=== PATIENT | male | born 1965 | race Caucasian/White ===

== ENCOUNTER → 2017-12-10 | Outpatient (CLI) | payer OTHER ==
[~2017-12-10] MED LIST: CEFUROXIME500 MG PO; IBUPROFEN 800800 MG PO; LORTAB 5-500 T1 EAC1 PO; MINOCIN100 MG PO; NORCO 10-325 T1 EACH PO; PERCOCET 10-321 EACH PO; ULTRAM 50MG TAB50 MG PO; VALIUM5 MG PO; VITAMIN D3400 UNIT PO; XARELTO15 MG PO; XARELTO20 MG PO
[2017-12-10 02:55] LABS: HEMATOCRIT 48.7 % (42.0-52.0); HEMOGLOBIN 16.2 gm/dL (14.0-18.0); MCH 31.9 pg (26.0-34.0); MCHC 33.3 g/dL (28.0-37.0); MPV 7.4 fl. (7.2-11.1); RBC 5.07 mil/uL (4.50-6.00); RDW-CV 13.4 % (10.5-14.5); WBC 9.4 thou/uL (4.0-11.0)
[2017-12-10 03:32] LABS: ALBUMIN 3.4 g/dL (3.4-5.0); ALKALINE PHOSPHATASE 149 U/L (46-116); ANION GAP 9 mmol/L (7-16); BUN 10 mg/dL (7-18); CALCIUM 8.6 mg/dL (8.5-10.1); CHLORIDE 103 mmol/L (98-107); CHOLESTEROL 179 mg/dL (<200); CO2 29 mmol/L (21-32); CREATININE 1.1 mg/dL (0.6-1.3); GLUCOSE 118 mg/dL (70-99); HDL CHOLESTEROL 38 mg/dL (>40); LDL CHOLESTEROL 111 mg/dL (<100); POTASSIUM 3.6 mmol/L (3.5-5.1); SGOT 33 U/L (15-37); SGPT 53 U/L (30-65); SODIUM 141 mmol/L (136-145); TC:HDL 4.7 Ratio (Not establshd); TOTAL PROTEIN 8.7 g/dL (6.4-8.2); TRIGLYCERIDE 154 mg/dL (<150); VLDL 31 mg/dL (<40)
[2017-12-10 03:35] LABS: SERUM ASSESSMENT Clear
== END ==
LOC: M.LAB 01:49
PROVIDERS: Internal Medicine
DX: I83.009 Varicose veins of unspecified lower extremity with ulcer of unspecified site (principal); R21 Rash and other nonspecific skin eruption

== ENCOUNTER → 2017-12-21 | Outpatient (CLI) | payer OTHER | LOC: M.RAD 04:54 | DX: R05 Cough (principal); R07.9 Chest pain, unspecified ==

== ENCOUNTER → 2018-02-01 | Outpatient (CLI) | payer OTHER | LOC: M.WC 00:02 | DX: I83.023 Varicose veins of left lower extremity with ulcer of ankle (principal); L97.321 Non-pressure chronic ulcer of left ankle limited to breakdown of skin; I89.0 Lymphedema, not elsewhere classified; E66.01 Morbid (severe) obesity due to excess calories; Z68.44 Body mass index [BMI] 60.0-69.9, adult; Z86.718 Personal history of other venous thrombosis and embolism ==

== ENCOUNTER → 2018-02-04 | Outpatient (CLI) | payer OTHER | LOC: M.WC 01:29 | DX: I83.023 Varicose veins of left lower extremity with ulcer of ankle (principal); L97.321 Non-pressure chronic ulcer of left ankle limited to breakdown of skin; I89.0 Lymphedema, not elsewhere classified; E66.01 Morbid (severe) obesity due to excess calories; Z68.44 Body mass index [BMI] 60.0-69.9, adult; Z86.718 Personal history of other venous thrombosis and embolism ==

== ENCOUNTER → 2018-02-09 | Outpatient (CLI) | payer OTHER | LOC: M.WC 02:09 | DX: I87.312 Chronic venous hypertension (idiopathic) with ulcer of left lower extremity (principal); L97.821 Non-pressure chronic ulcer of other part of left lower leg limited to breakdown of skin; L97.321 Non-pressure chronic ulcer of left ankle limited to breakdown of skin; I89.0 Lymphedema, not elsewhere classified; E66.01 Morbid (severe) obesity due to excess calories; Z86.718 Personal history of other venous thrombosis and embolism; Z68.44 Body mass index [BMI] 60.0-69.9, adult ==

== ENCOUNTER → 2018-02-11 | Outpatient (CLI) | payer OTHER | LOC: M.WC 05:00 | DX: I83.023 Varicose veins of left lower extremity with ulcer of ankle (principal); I89.0 Lymphedema, not elsewhere classified; L97.821 Non-pressure chronic ulcer of other part of left lower leg limited to breakdown of skin; E66.01 Morbid (severe) obesity due to excess calories; I87.2 Venous insufficiency (chronic) (peripheral); Z86.718 Personal history of other venous thrombosis and embolism; Z68.44 Body mass index [BMI] 60.0-69.9, adult ==

== ENCOUNTER → 2018-02-15 | Outpatient (CLI) | payer OTHER | LOC: M.WC 01:37 | DX: I87.312 Chronic venous hypertension (idiopathic) with ulcer of left lower extremity (principal); L97.821 Non-pressure chronic ulcer of other part of left lower leg limited to breakdown of skin; I89.0 Lymphedema, not elsewhere classified; E66.01 Morbid (severe) obesity due to excess calories; Z86.718 Personal history of other venous thrombosis and embolism; Z68.44 Body mass index [BMI] 60.0-69.9, adult ==

== ENCOUNTER → 2018-02-18 | Outpatient (CLI) | payer OTHER | LOC: M.WC 04:38 | DX: I87.312 Chronic venous hypertension (idiopathic) with ulcer of left lower extremity (principal); L97.821 Non-pressure chronic ulcer of other part of left lower leg limited to breakdown of skin; I83.023 Varicose veins of left lower extremity with ulcer of ankle; E66.01 Morbid (severe) obesity due to excess calories; Z68.44 Body mass index [BMI] 60.0-69.9, adult; Z86.718 Personal history of other venous thrombosis and embolism ==

== ENCOUNTER → 2018-02-25 | Outpatient (CLI) | payer OTHER | LOC: M.WC 00:54 | DX: I83.023 Varicose veins of left lower extremity with ulcer of ankle (principal); L97.321 Non-pressure chronic ulcer of left ankle limited to breakdown of skin; L97.821 Non-pressure chronic ulcer of other part of left lower leg limited to breakdown of skin; I89.0 Lymphedema, not elsewhere classified; E66.01 Morbid (severe) obesity due to excess calories; Z86.718 Personal history of other venous thrombosis and embolism; Z68.44 Body mass index [BMI] 60.0-69.9, adult ==

== ENCOUNTER → 2018-03-04 | Outpatient (CLI) | payer OTHER | LOC: M.WC 02:23 | DX: I87.312 Chronic venous hypertension (idiopathic) with ulcer of left lower extremity (principal); L97.822 Non-pressure chronic ulcer of other part of left lower leg with fat layer exposed; I89.0 Lymphedema, not elsewhere classified; E66.01 Morbid (severe) obesity due to excess calories; Z68.44 Body mass index [BMI] 60.0-69.9, adult; Z86.718 Personal history of other venous thrombosis and embolism ==

== ENCOUNTER → 2018-03-12 | Outpatient (CLI) | payer OTHER | LOC: M.WC 02:14 | DX: I87.312 Chronic venous hypertension (idiopathic) with ulcer of left lower extremity (principal); L97.822 Non-pressure chronic ulcer of other part of left lower leg with fat layer exposed; I89.0 Lymphedema, not elsewhere classified; E66.01 Morbid (severe) obesity due to excess calories; Z68.44 Body mass index [BMI] 60.0-69.9, adult; Z86.718 Personal history of other venous thrombosis and embolism ==

== ENCOUNTER → 2018-03-15 | Outpatient (CLI) | payer OTHER | LOC: M.WC 01:07 | DX: I83.023 Varicose veins of left lower extremity with ulcer of ankle (principal); L97.321 Non-pressure chronic ulcer of left ankle limited to breakdown of skin; L97.821 Non-pressure chronic ulcer of other part of left lower leg limited to breakdown of skin; I89.0 Lymphedema, not elsewhere classified; E66.01 Morbid (severe) obesity due to excess calories; Z86.718 Personal history of other venous thrombosis and embolism; Z68.44 Body mass index [BMI] 60.0-69.9, adult ==

== ENCOUNTER → 2018-03-18 | Outpatient (CLI) | payer OTHER | LOC: M.WC 03:53 | DX: I83.023 Varicose veins of left lower extremity with ulcer of ankle (principal); L97.321 Non-pressure chronic ulcer of left ankle limited to breakdown of skin; L97.821 Non-pressure chronic ulcer of other part of left lower leg limited to breakdown of skin; I89.0 Lymphedema, not elsewhere classified; E66.01 Morbid (severe) obesity due to excess calories; Z68.44 Body mass index [BMI] 60.0-69.9, adult; Z86.718 Personal history of other venous thrombosis and embolism ==

== ENCOUNTER → 2018-03-25 | Outpatient (CLI) | payer OTHER | LOC: M.WC 03:22 | DX: I83.023 Varicose veins of left lower extremity with ulcer of ankle (principal); L97.821 Non-pressure chronic ulcer of other part of left lower leg limited to breakdown of skin; E66.01 Morbid (severe) obesity due to excess calories; I89.0 Lymphedema, not elsewhere classified; Z68.44 Body mass index [BMI] 60.0-69.9, adult; Z86.718 Personal history of other venous thrombosis and embolism ==

== ENCOUNTER → 2018-04-02 | Outpatient (CLI) | payer OTHER | LOC: M.WC 01:36 | DX: L97.821 Non-pressure chronic ulcer of other part of left lower leg limited to breakdown of skin (principal); I83.023 Varicose veins of left lower extremity with ulcer of ankle; I89.0 Lymphedema, not elsewhere classified; E66.01 Morbid (severe) obesity due to excess calories; Z68.44 Body mass index [BMI] 60.0-69.9, adult; Z86.718 Personal history of other venous thrombosis and embolism ==

== ENCOUNTER → 2018-04-06 | Outpatient (CLI) | payer OTHER | LOC: M.WC 03:23 | DX: I83.023 Varicose veins of left lower extremity with ulcer of ankle (principal); L97.321 Non-pressure chronic ulcer of left ankle limited to breakdown of skin; L97.821 Non-pressure chronic ulcer of other part of left lower leg limited to breakdown of skin; I89.0 Lymphedema, not elsewhere classified; E66.01 Morbid (severe) obesity due to excess calories; Z68.44 Body mass index [BMI] 60.0-69.9, adult; Z86.718 Personal history of other venous thrombosis and embolism ==

== ENCOUNTER → 2018-04-09 | Outpatient (CLI) | payer OTHER | LOC: M.WC 04:37 | DX: L97.821 Non-pressure chronic ulcer of other part of left lower leg limited to breakdown of skin (principal); I87.2 Venous insufficiency (chronic) (peripheral); I89.0 Lymphedema, not elsewhere classified; E66.01 Morbid (severe) obesity due to excess calories; Z86.718 Personal history of other venous thrombosis and embolism; Z68.44 Body mass index [BMI] 60.0-69.9, adult ==

== ENCOUNTER → 2018-04-15 | Outpatient (CLI) | payer OTHER | LOC: M.WC 03:45 | DX: I83.023 Varicose veins of left lower extremity with ulcer of ankle (principal); L97.321 Non-pressure chronic ulcer of left ankle limited to breakdown of skin; I89.0 Lymphedema, not elsewhere classified; E66.01 Morbid (severe) obesity due to excess calories; Z68.44 Body mass index [BMI] 60.0-69.9, adult; Z86.718 Personal history of other venous thrombosis and embolism ==

== ENCOUNTER → 2018-04-23 | Outpatient (CLI) | payer OTHER | LOC: M.WC 01:50 | DX: I87.312 Chronic venous hypertension (idiopathic) with ulcer of left lower extremity (principal); L97.822 Non-pressure chronic ulcer of other part of left lower leg with fat layer exposed; I89.0 Lymphedema, not elsewhere classified; E66.01 Morbid (severe) obesity due to excess calories; Z68.44 Body mass index [BMI] 60.0-69.9, adult; Z86.718 Personal history of other venous thrombosis and embolism ==

== ENCOUNTER → 2018-04-30 | Outpatient (CLI) | payer OTHER | LOC: M.WC 01:45 | DX: I83.023 Varicose veins of left lower extremity with ulcer of ankle (principal); L97.321 Non-pressure chronic ulcer of left ankle limited to breakdown of skin; I89.0 Lymphedema, not elsewhere classified; E66.01 Morbid (severe) obesity due to excess calories; Z68.44 Body mass index [BMI] 60.0-69.9, adult; Z86.718 Personal history of other venous thrombosis and embolism ==

== ENCOUNTER → 2018-05-06 | Outpatient (CLI) | payer OTHER | LOC: M.WC 03:21 | DX: I83.028 Varicose veins of left lower extremity with ulcer other part of lower leg (principal); L97.821 Non-pressure chronic ulcer of other part of left lower leg limited to breakdown of skin; I89.0 Lymphedema, not elsewhere classified; E66.01 Morbid (severe) obesity due to excess calories; Z68.44 Body mass index [BMI] 60.0-69.9, adult; Z86.718 Personal history of other venous thrombosis and embolism ==

== ENCOUNTER 2018-06-02 08:46 | Emergency (ER) | payer OTHER ==
[~2018-06-02] VITALS: Ht 188 cm; Wt 226.8 kg
[~2018-06-02 08:46] MED LIST changes: -ULTRAM 50MG TAB50 MG PO; -VITAMIN D3400 UNIT PO
[2018-06-02] MEDS ORDERED: VITAMIN D3400 UNIT PO (08:57)
[2018-06-02 09:19] LABS: URINE BILIRUBIN NEGATIVE (Negative); URINE BLOOD 2+ (Negative); URINE CLARITY CLEAR; URINE COLOR DARK YELLOW; URINE GLUCOSE-RANDOM NEGATIVE (Negative); URINE KETONES NEGATIVE (Negative); URINE LEUKOCYTES-REFLEX NEGATIVE (Negative); URINE NITRITE-REFLEX NEGATIVE (Negative); URINE PROTEIN NEGATIVE (Negative); URINE SPECIFIC GRAVITY 1.025 (1.005-1.030); URINE UROBILINOGEN 0.2 E.U./dl (0.2-1.0)
[2018-06-02 09:28] LABS: SQUAMOUS 0-3 Few /LPF (0-3)
[2018-06-02 09:29] LABS: BACTERIA-REFLEX 1-9 Few /HPF (None Seen); CASTS None Seen /LPF (None Seen); URINE RBC 0-2 Rare /HPF (0-2); URINE WBC-REFLEX 0-5 Rare /HPF (0-5)
[2018-06-02 09:30] LABS: CRYSTALS None Seen /LPF (None Seen); MUCUS >6 Heavy strn/LPF (None Seen)
[2018-06-02 09:37] LABS: ABSOLUTE BASOPHILS 0.1 thou/uL (0.0-0.2); ABSOLUTE EOSINOPHILS 0.2 thou/uL (0.0-0.7); ABSOLUTE LYMPHOCYTES 1.6 thou/uL (0.8-5.3); ABSOLUTE MONOCYTES 0.6 thou/uL (0.0-1.2); ABSOLUTE NEUTROPHILS 6.3 thou/uL (1.6-8.1); BASOPHILS 0.8 %; EOSINOPHILS 2.2 %; HEMATOCRIT 45.5 % (42.0-52.0); HEMOGLOBIN 15.2 gm/dL (14.0-18.0); LYMPHOCYTES 18.5 %; MCH 32.3 pg (26.0-34.0); MCHC 33.4 g/dL (28.0-37.0); MCV 96.7 fL (80.0-100.0); MONOCYTES 7.3 %; MPV 7.7 fl. (7.2-11.1); NUCLEATED RBCS 0 /100WBC; PLATELET COUNT* 274 thou/uL (150-400); POLYS 71.2 %; RBC 4.71 mil/uL (4.50-6.00); RDW-CV 13.5 % (10.5-14.5); WBC 8.8 thou/uL (4.0-11.0)
[2018-06-02 09:49] LABS: CALCIUM 8.3 mg/dL (8.5-10.1); CREATININE 1.1 mg/dL (0.6-1.3); POTASSIUM 3.8 mmol/L (3.5-5.1)
[2018-06-02 09:54] LABS: ALBUMIN 3.2 g/dL (3.4-5.0); TOTAL BILIRUBIN 1.3 mg/dL (<0.1-1.0); TOTAL PROTEIN 7.8 g/dL (6.4-8.2)
[2018-06-02] MEDS ORDERED: VALIUM5 MG PO (12:40)
[2018-06-02] MEDS ORDERED: ULTRAM 50MG TAB50 MG PO (12:40)
[2018-06-02] MEDS ORDERED: PERCOCET 10-321 EACH PO (12:57)
[2018-06-02 13:04] VITALS: BP 150/82
== END 2018-06-02 13:05 | disposition home or self-care (01) ==
LOC: M.ERS 08:46
PROVIDERS: Personal Emergency Response Attendant
DX: M54.6 Pain in thoracic spine (principal); R31.9 Hematuria, unspecified; Z90.49 Acquired absence of other specified parts of digestive tract

== ENCOUNTER → 2018-12-18 | Outpatient (CLI) | payer OTHER ==
[~2018-12-18] MED LIST changes: +ULTRAM 50MG TAB50 MG PO; +VITAMIN D3400 UNIT PO
== END ==
LOC: M.RAD 02:06
DX: M25.561 Pain in right knee (principal); M25.562 Pain in left knee

== ENCOUNTER 2019-01-14 20:03 | Emergency (ER) | payer OTHER ==
[~2019-01-14] VITALS: Ht 188 cm; Wt 236.7 kg
[2019-01-14] MEDS ORDERED: OMEPRAZOLE20 M2 PO (20:14)
[2019-01-14] MEDS ORDERED: CELEBREX 200 M200 M1 PO (20:14)
[2019-01-14] MEDS ORDERED: GLUCOSAMINE HC500 MG PO (20:14)
[2019-01-14 21:02] VITALS: BP 159/82
== END 2019-01-14 21:02 | disposition short-term general hospital (02) ==
LOC: M.ERS 20:03
DX: R07.89 Other chest pain (principal); R51 Headache; M25.562 Pain in left knee; Z90.49 Acquired absence of other specified parts of digestive tract; W01.0XXA Fall on same level from slipping, tripping and stumbling without subsequent striking against object, initial encounter; Y93.89 Activity, other specified; Y92.89 Other specified places as the place of occurrence of the external cause; Y99.8 Other external cause status

== ENCOUNTER → 2019-02-10 | Outpatient (CLI) | payer OTHER ==
[~2019-02-10] MED LIST changes: +CELEBREX 200 M200 M1 PO; +GLUCOSAMINE HC500 MG PO; +OMEPRAZOLE20 M2 PO
== END ==
LOC: M.WC 08:00
DX: I87.312 Chronic venous hypertension (idiopathic) with ulcer of left lower extremity (principal); L97.822 Non-pressure chronic ulcer of other part of left lower leg with fat layer exposed; I89.0 Lymphedema, not elsewhere classified; E66.01 Morbid (severe) obesity due to excess calories; M45.9 Ankylosing spondylitis of unspecified sites in spine; Z90.49 Acquired absence of other specified parts of digestive tract; Z86.718 Personal history of other venous thrombosis and embolism; Z68.44 Body mass index [BMI] 60.0-69.9, adult

== ENCOUNTER → 2019-02-14 | Outpatient (CLI) | payer OTHER | LOC: M.WC 01:24 | DX: I87.312 Chronic venous hypertension (idiopathic) with ulcer of left lower extremity (principal); I89.0 Lymphedema, not elsewhere classified; E66.01 Morbid (severe) obesity due to excess calories; L97.821 Non-pressure chronic ulcer of other part of left lower leg limited to breakdown of skin; Z86.718 Personal history of other venous thrombosis and embolism; Z68.44 Body mass index [BMI] 60.0-69.9, adult ==

== ENCOUNTER → 2019-02-17 | Outpatient (CLI) | payer OTHER | LOC: M.WC 02:33 | DX: I87.312 Chronic venous hypertension (idiopathic) with ulcer of left lower extremity (principal); L97.822 Non-pressure chronic ulcer of other part of left lower leg with fat layer exposed; I89.0 Lymphedema, not elsewhere classified; E66.01 Morbid (severe) obesity due to excess calories; Z68.44 Body mass index [BMI] 60.0-69.9, adult; Z86.718 Personal history of other venous thrombosis and embolism ==

== ENCOUNTER → 2019-02-22 | Outpatient (CLI) | payer OTHER | LOC: M.WC 04:59 | DX: I87.312 Chronic venous hypertension (idiopathic) with ulcer of left lower extremity (principal); L97.821 Non-pressure chronic ulcer of other part of left lower leg limited to breakdown of skin; I89.0 Lymphedema, not elsewhere classified; E66.01 Morbid (severe) obesity due to excess calories; M45.9 Ankylosing spondylitis of unspecified sites in spine; Z86.718 Personal history of other venous thrombosis and embolism; Z68.44 Body mass index [BMI] 60.0-69.9, adult ==

== ENCOUNTER → 2019-02-25 | Outpatient (CLI) | payer OTHER | LOC: M.WC 05:04 | DX: I87.312 Chronic venous hypertension (idiopathic) with ulcer of left lower extremity (principal); L97.822 Non-pressure chronic ulcer of other part of left lower leg with fat layer exposed; I89.0 Lymphedema, not elsewhere classified; E66.01 Morbid (severe) obesity due to excess calories; M45.9 Ankylosing spondylitis of unspecified sites in spine; Z86.718 Personal history of other venous thrombosis and embolism; Z68.44 Body mass index [BMI] 60.0-69.9, adult ==

== ENCOUNTER → 2019-03-01 | Outpatient (CLI) | payer OTHER | LOC: M.WC 05:05 | DX: I87.312 Chronic venous hypertension (idiopathic) with ulcer of left lower extremity (principal); L97.821 Non-pressure chronic ulcer of other part of left lower leg limited to breakdown of skin; I89.0 Lymphedema, not elsewhere classified; E66.01 Morbid (severe) obesity due to excess calories; M45.9 Ankylosing spondylitis of unspecified sites in spine; Z86.718 Personal history of other venous thrombosis and embolism; Z68.44 Body mass index [BMI] 60.0-69.9, adult ==

== ENCOUNTER → 2019-03-04 | Outpatient (CLI) | payer OTHER | LOC: M.WC 04:44 | DX: I87.312 Chronic venous hypertension (idiopathic) with ulcer of left lower extremity (principal); L97.822 Non-pressure chronic ulcer of other part of left lower leg with fat layer exposed; I89.0 Lymphedema, not elsewhere classified; E66.01 Morbid (severe) obesity due to excess calories; M45.9 Ankylosing spondylitis of unspecified sites in spine; Z68.44 Body mass index [BMI] 60.0-69.9, adult; Z86.718 Personal history of other venous thrombosis and embolism ==

== ENCOUNTER → 2019-03-08 | Outpatient (CLI) | payer OTHER | LOC: M.WC 05:11 | DX: I87.312 Chronic venous hypertension (idiopathic) with ulcer of left lower extremity (principal); L97.821 Non-pressure chronic ulcer of other part of left lower leg limited to breakdown of skin; I89.0 Lymphedema, not elsewhere classified; E66.01 Morbid (severe) obesity due to excess calories; M45.9 Ankylosing spondylitis of unspecified sites in spine; Z86.718 Personal history of other venous thrombosis and embolism; Z68.44 Body mass index [BMI] 60.0-69.9, adult ==

== ENCOUNTER → 2019-03-11 | Outpatient (CLI) | payer OTHER | LOC: M.WC 04:55 | DX: I87.312 Chronic venous hypertension (idiopathic) with ulcer of left lower extremity (principal); L97.822 Non-pressure chronic ulcer of other part of left lower leg with fat layer exposed; I89.0 Lymphedema, not elsewhere classified; E66.01 Morbid (severe) obesity due to excess calories; M45.9 Ankylosing spondylitis of unspecified sites in spine; Z86.718 Personal history of other venous thrombosis and embolism; Z68.44 Body mass index [BMI] 60.0-69.9, adult ==

== ENCOUNTER → 2019-03-15 | Outpatient (CLI) | payer OTHER | LOC: M.WC 00:29 | DX: I87.312 Chronic venous hypertension (idiopathic) with ulcer of left lower extremity (principal); I89.0 Lymphedema, not elsewhere classified; E66.01 Morbid (severe) obesity due to excess calories; M45.9 Ankylosing spondylitis of unspecified sites in spine; Z68.44 Body mass index [BMI] 60.0-69.9, adult; Z86.718 Personal history of other venous thrombosis and embolism ==

== ENCOUNTER → 2019-03-18 | Outpatient (CLI) | payer OTHER | LOC: M.WC 00:34 | DX: I87.312 Chronic venous hypertension (idiopathic) with ulcer of left lower extremity (principal); L97.821 Non-pressure chronic ulcer of other part of left lower leg limited to breakdown of skin; I89.0 Lymphedema, not elsewhere classified; E66.01 Morbid (severe) obesity due to excess calories; M45.9 Ankylosing spondylitis of unspecified sites in spine; Z86.718 Personal history of other venous thrombosis and embolism; Z68.44 Body mass index [BMI] 60.0-69.9, adult ==

== ENCOUNTER → 2019-03-22 | Outpatient (CLI) | payer OTHER | LOC: M.WC 05:38 | DX: I87.312 Chronic venous hypertension (idiopathic) with ulcer of left lower extremity (principal); L97.821 Non-pressure chronic ulcer of other part of left lower leg limited to breakdown of skin; I89.0 Lymphedema, not elsewhere classified; E66.01 Morbid (severe) obesity due to excess calories; M45.9 Ankylosing spondylitis of unspecified sites in spine; Z68.44 Body mass index [BMI] 60.0-69.9, adult; Z86.718 Personal history of other venous thrombosis and embolism ==

== ENCOUNTER → 2019-03-25 | Outpatient (CLI) | payer OTHER | LOC: M.WC 04:34 | DX: I87.312 Chronic venous hypertension (idiopathic) with ulcer of left lower extremity (principal); L97.821 Non-pressure chronic ulcer of other part of left lower leg limited to breakdown of skin; I89.0 Lymphedema, not elsewhere classified; E66.09 Other obesity due to excess calories; L03.90 Cellulitis, unspecified; Z86.718 Personal history of other venous thrombosis and embolism; Z68.44 Body mass index [BMI] 60.0-69.9, adult ==

== ENCOUNTER → 2019-03-29 | Outpatient (CLI) | payer OTHER | LOC: M.WC 05:23 | DX: I87.312 Chronic venous hypertension (idiopathic) with ulcer of left lower extremity (principal); L97.821 Non-pressure chronic ulcer of other part of left lower leg limited to breakdown of skin; I89.0 Lymphedema, not elsewhere classified; E66.01 Morbid (severe) obesity due to excess calories; M45.9 Ankylosing spondylitis of unspecified sites in spine; Z86.718 Personal history of other venous thrombosis and embolism; Z68.44 Body mass index [BMI] 60.0-69.9, adult ==

== ENCOUNTER → 2019-04-08 | Outpatient (CLI) | payer OTHER | LOC: M.WC 04:06 | DX: I87.312 Chronic venous hypertension (idiopathic) with ulcer of left lower extremity (principal); L97.822 Non-pressure chronic ulcer of other part of left lower leg with fat layer exposed; I89.0 Lymphedema, not elsewhere classified; E66.01 Morbid (severe) obesity due to excess calories; M45.9 Ankylosing spondylitis of unspecified sites in spine; Z86.718 Personal history of other venous thrombosis and embolism; Z68.44 Body mass index [BMI] 60.0-69.9, adult ==

== ENCOUNTER → 2019-04-12 | Outpatient (CLI) | payer OTHER | LOC: M.WC 05:18 | DX: I87.313 Chronic venous hypertension (idiopathic) with ulcer of bilateral lower extremity (principal); L97.811 Non-pressure chronic ulcer of other part of right lower leg limited to breakdown of skin; L97.821 Non-pressure chronic ulcer of other part of left lower leg limited to breakdown of skin; I89.0 Lymphedema, not elsewhere classified; E66.01 Morbid (severe) obesity due to excess calories; M45.9 Ankylosing spondylitis of unspecified sites in spine; Z86.718 Personal history of other venous thrombosis and embolism; Z68.44 Body mass index [BMI] 60.0-69.9, adult ==

== ENCOUNTER → 2019-04-15 | Outpatient (CLI) | payer OTHER | LOC: M.WC 05:06 | DX: I87.312 Chronic venous hypertension (idiopathic) with ulcer of left lower extremity (principal); L97.811 Non-pressure chronic ulcer of other part of right lower leg limited to breakdown of skin; L97.821 Non-pressure chronic ulcer of other part of left lower leg limited to breakdown of skin; I89.0 Lymphedema, not elsewhere classified; E66.01 Morbid (severe) obesity due to excess calories; Z68.44 Body mass index [BMI] 60.0-69.9, adult; Z86.718 Personal history of other venous thrombosis and embolism ==

== ENCOUNTER → 2019-04-19 | Outpatient (CLI) | payer OTHER | LOC: M.WC 05:26 | DX: I87.311 Chronic venous hypertension (idiopathic) with ulcer of right lower extremity (principal); L97.811 Non-pressure chronic ulcer of other part of right lower leg limited to breakdown of skin; I89.0 Lymphedema, not elsewhere classified; E66.01 Morbid (severe) obesity due to excess calories; M45.9 Ankylosing spondylitis of unspecified sites in spine; Z86.718 Personal history of other venous thrombosis and embolism; Z68.44 Body mass index [BMI] 60.0-69.9, adult ==

== ENCOUNTER → 2019-04-22 | Outpatient (CLI) | payer OTHER | LOC: M.WC 05:26 | DX: I87.313 Chronic venous hypertension (idiopathic) with ulcer of bilateral lower extremity (principal); L97.818 Non-pressure chronic ulcer of other part of right lower leg with other specified severity; L97.828 Non-pressure chronic ulcer of other part of left lower leg with other specified severity; I89.0 Lymphedema, not elsewhere classified; E66.01 Morbid (severe) obesity due to excess calories; M45.9 Ankylosing spondylitis of unspecified sites in spine; Z68.44 Body mass index [BMI] 60.0-69.9, adult; Z86.718 Personal history of other venous thrombosis and embolism ==

== ENCOUNTER → 2019-05-10 | Outpatient (CLI) | payer OTHER | LOC: M.WC 05:17 | DX: L97.811 Non-pressure chronic ulcer of other part of right lower leg limited to breakdown of skin (principal); L97.821 Non-pressure chronic ulcer of other part of left lower leg limited to breakdown of skin; I89.0 Lymphedema, not elsewhere classified; I87.2 Venous insufficiency (chronic) (peripheral); E66.01 Morbid (severe) obesity due to excess calories; M45.9 Ankylosing spondylitis of unspecified sites in spine; Z86.718 Personal history of other venous thrombosis and embolism ==

== ENCOUNTER → 2019-05-16 | Outpatient (CLI) | payer OTHER | LOC: M.WC 14:25 | DX: L97.811 Non-pressure chronic ulcer of other part of right lower leg limited to breakdown of skin (principal); L97.821 Non-pressure chronic ulcer of other part of left lower leg limited to breakdown of skin; I89.0 Lymphedema, not elsewhere classified; I87.2 Venous insufficiency (chronic) (peripheral); E66.01 Morbid (severe) obesity due to excess calories; M45.9 Ankylosing spondylitis of unspecified sites in spine; Z86.718 Personal history of other venous thrombosis and embolism ==

== ENCOUNTER → 2019-05-20 | Outpatient (CLI) | payer OTHER | LOC: M.WC 01:42 | DX: L97.822 Non-pressure chronic ulcer of other part of left lower leg with fat layer exposed (principal); L97.812 Non-pressure chronic ulcer of other part of right lower leg with fat layer exposed; I89.0 Lymphedema, not elsewhere classified; I87.2 Venous insufficiency (chronic) (peripheral); E66.01 Morbid (severe) obesity due to excess calories; M45.9 Ankylosing spondylitis of unspecified sites in spine; Z86.718 Personal history of other venous thrombosis and embolism ==

== ENCOUNTER → 2019-05-24 | Outpatient (CLI) | payer OTHER | LOC: M.WC 04:49 | DX: L97.811 Non-pressure chronic ulcer of other part of right lower leg limited to breakdown of skin (principal); L97.821 Non-pressure chronic ulcer of other part of left lower leg limited to breakdown of skin; I89.0 Lymphedema, not elsewhere classified; I87.2 Venous insufficiency (chronic) (peripheral); E66.01 Morbid (severe) obesity due to excess calories; M45.9 Ankylosing spondylitis of unspecified sites in spine; Z86.718 Personal history of other venous thrombosis and embolism ==

== ENCOUNTER → 2019-05-27 | Outpatient (CLI) | payer OTHER | LOC: M.WC 04:41 | DX: L97.811 Non-pressure chronic ulcer of other part of right lower leg limited to breakdown of skin (principal); L97.821 Non-pressure chronic ulcer of other part of left lower leg limited to breakdown of skin; I89.0 Lymphedema, not elsewhere classified; I87.2 Venous insufficiency (chronic) (peripheral); E66.01 Morbid (severe) obesity due to excess calories; M45.9 Ankylosing spondylitis of unspecified sites in spine; Z86.718 Personal history of other venous thrombosis and embolism ==

== ENCOUNTER → 2019-05-31 | Outpatient (CLI) | payer OTHER | LOC: M.RAD 01:53 | DX: M81.8 Other osteoporosis without current pathological fracture (principal); M25.78 Osteophyte, vertebrae ==

== ENCOUNTER → 2019-05-31 | Outpatient (CLI) | payer OTHER | LOC: M.WC 08:00 | DX: L97.811 Non-pressure chronic ulcer of other part of right lower leg limited to breakdown of skin (principal); L97.821 Non-pressure chronic ulcer of other part of left lower leg limited to breakdown of skin; I89.0 Lymphedema, not elsewhere classified; I87.2 Venous insufficiency (chronic) (peripheral); E66.01 Morbid (severe) obesity due to excess calories; M45.9 Ankylosing spondylitis of unspecified sites in spine; Z86.718 Personal history of other venous thrombosis and embolism ==

== ENCOUNTER → 2019-06-03 | Outpatient (CLI) | payer OTHER | LOC: M.WC 05:04 | DX: L97.811 Non-pressure chronic ulcer of other part of right lower leg limited to breakdown of skin (principal); L97.821 Non-pressure chronic ulcer of other part of left lower leg limited to breakdown of skin; I89.0 Lymphedema, not elsewhere classified; I87.2 Venous insufficiency (chronic) (peripheral); E66.01 Morbid (severe) obesity due to excess calories; M45.9 Ankylosing spondylitis of unspecified sites in spine; Z86.718 Personal history of other venous thrombosis and embolism ==

== ENCOUNTER → 2019-06-17 | Outpatient (CLI) | payer OTHER | LOC: M.WC 05:33 | DX: L97.811 Non-pressure chronic ulcer of other part of right lower leg limited to breakdown of skin (principal); L97.821 Non-pressure chronic ulcer of other part of left lower leg limited to breakdown of skin; I89.0 Lymphedema, not elsewhere classified; I87.2 Venous insufficiency (chronic) (peripheral); E66.01 Morbid (severe) obesity due to excess calories; Z68.44 Body mass index [BMI] 60.0-69.9, adult; Z86.718 Personal history of other venous thrombosis and embolism ==

== ENCOUNTER → 2019-06-23 | Outpatient (CLI) | payer OTHER | LOC: M.WC 04:46 | DX: L97.811 Non-pressure chronic ulcer of other part of right lower leg limited to breakdown of skin (principal); L97.821 Non-pressure chronic ulcer of other part of left lower leg limited to breakdown of skin; I89.0 Lymphedema, not elsewhere classified; I87.2 Venous insufficiency (chronic) (peripheral); E66.01 Morbid (severe) obesity due to excess calories; Z68.43 Body mass index [BMI] 50.0-59.9, adult; Z86.718 Personal history of other venous thrombosis and embolism ==

== ENCOUNTER → 2019-06-28 | Outpatient (CLI) | payer OTHER | LOC: M.WC 04:58 | DX: L97.811 Non-pressure chronic ulcer of other part of right lower leg limited to breakdown of skin (principal); L97.821 Non-pressure chronic ulcer of other part of left lower leg limited to breakdown of skin; I89.0 Lymphedema, not elsewhere classified; I87.2 Venous insufficiency (chronic) (peripheral); E66.01 Morbid (severe) obesity due to excess calories; M45.9 Ankylosing spondylitis of unspecified sites in spine; Z86.718 Personal history of other venous thrombosis and embolism; Z68.44 Body mass index [BMI] 60.0-69.9, adult ==

== ENCOUNTER → 2019-07-01 | Outpatient (CLI) | payer OTHER | LOC: M.WC 05:16 | DX: L97.822 Non-pressure chronic ulcer of other part of left lower leg with fat layer exposed (principal); L97.812 Non-pressure chronic ulcer of other part of right lower leg with fat layer exposed; I89.0 Lymphedema, not elsewhere classified; I87.2 Venous insufficiency (chronic) (peripheral); E66.01 Morbid (severe) obesity due to excess calories; Z86.718 Personal history of other venous thrombosis and embolism; Z68.44 Body mass index [BMI] 60.0-69.9, adult ==

== ENCOUNTER → 2019-07-04 | Outpatient (CLI) | payer OTHER | LOC: M.WC 05:08 | DX: L97.811 Non-pressure chronic ulcer of other part of right lower leg limited to breakdown of skin (principal); L97.821 Non-pressure chronic ulcer of other part of left lower leg limited to breakdown of skin; I89.0 Lymphedema, not elsewhere classified; I87.2 Venous insufficiency (chronic) (peripheral); E66.01 Morbid (severe) obesity due to excess calories; M45.9 Ankylosing spondylitis of unspecified sites in spine; Z86.718 Personal history of other venous thrombosis and embolism; Z68.44 Body mass index [BMI] 60.0-69.9, adult ==

== ENCOUNTER → 2019-07-07 | Outpatient (CLI) | payer OTHER | LOC: M.WC 06:08 | DX: L97.811 Non-pressure chronic ulcer of other part of right lower leg limited to breakdown of skin (principal); L97.821 Non-pressure chronic ulcer of other part of left lower leg limited to breakdown of skin; I89.0 Lymphedema, not elsewhere classified; I87.2 Venous insufficiency (chronic) (peripheral); E66.01 Morbid (severe) obesity due to excess calories; M45.9 Ankylosing spondylitis of unspecified sites in spine; Z86.718 Personal history of other venous thrombosis and embolism; Z68.44 Body mass index [BMI] 60.0-69.9, adult ==

== ENCOUNTER → 2019-07-12 | Outpatient (CLI) | payer OTHER | LOC: M.WC 05:38 | DX: L97.811 Non-pressure chronic ulcer of other part of right lower leg limited to breakdown of skin (principal); L97.821 Non-pressure chronic ulcer of other part of left lower leg limited to breakdown of skin; I89.0 Lymphedema, not elsewhere classified; I87.2 Venous insufficiency (chronic) (peripheral); E66.01 Morbid (severe) obesity due to excess calories; M45.9 Ankylosing spondylitis of unspecified sites in spine; Z86.718 Personal history of other venous thrombosis and embolism; Z68.44 Body mass index [BMI] 60.0-69.9, adult ==

== ENCOUNTER → 2019-07-14 | Outpatient (CLI) | payer OTHER | LOC: M.WC 04:34 | DX: L97.821 Non-pressure chronic ulcer of other part of left lower leg limited to breakdown of skin (principal); L97.811 Non-pressure chronic ulcer of other part of right lower leg limited to breakdown of skin; I89.0 Lymphedema, not elsewhere classified; I87.2 Venous insufficiency (chronic) (peripheral); E66.01 Morbid (severe) obesity due to excess calories; Z68.44 Body mass index [BMI] 60.0-69.9, adult; Z86.718 Personal history of other venous thrombosis and embolism ==

== ENCOUNTER → 2019-07-19 | Outpatient (CLI) | payer OTHER | LOC: M.WC 05:20 | DX: L97.811 Non-pressure chronic ulcer of other part of right lower leg limited to breakdown of skin (principal); L97.821 Non-pressure chronic ulcer of other part of left lower leg limited to breakdown of skin; I89.0 Lymphedema, not elsewhere classified; I87.2 Venous insufficiency (chronic) (peripheral); E66.01 Morbid (severe) obesity due to excess calories; M45.9 Ankylosing spondylitis of unspecified sites in spine; Z86.718 Personal history of other venous thrombosis and embolism; Z68.44 Body mass index [BMI] 60.0-69.9, adult ==

== ENCOUNTER → 2019-07-21 | Outpatient (CLI) | payer OTHER | LOC: M.WC 00:43 | DX: L97.821 Non-pressure chronic ulcer of other part of left lower leg limited to breakdown of skin (principal); I89.0 Lymphedema, not elsewhere classified; E66.01 Morbid (severe) obesity due to excess calories; I87.2 Venous insufficiency (chronic) (peripheral); M45.9 Ankylosing spondylitis of unspecified sites in spine; Z86.718 Personal history of other venous thrombosis and embolism; Z68.44 Body mass index [BMI] 60.0-69.9, adult ==

== ENCOUNTER → 2019-08-01 | Outpatient (CLI) | payer OTHER | LOC: M.WC 02:36 | DX: L97.821 Non-pressure chronic ulcer of other part of left lower leg limited to breakdown of skin (principal); I87.2 Venous insufficiency (chronic) (peripheral); I89.0 Lymphedema, not elsewhere classified; E66.01 Morbid (severe) obesity due to excess calories; M45.9 Ankylosing spondylitis of unspecified sites in spine; Z68.44 Body mass index [BMI] 60.0-69.9, adult; Z86.718 Personal history of other venous thrombosis and embolism ==

== ENCOUNTER → 2019-08-04 | Outpatient (CLI) | payer OTHER | LOC: M.WC 05:38 | DX: L97.812 Non-pressure chronic ulcer of other part of right lower leg with fat layer exposed (principal); L97.822 Non-pressure chronic ulcer of other part of left lower leg with fat layer exposed; I89.0 Lymphedema, not elsewhere classified; I87.2 Venous insufficiency (chronic) (peripheral); E66.01 Morbid (severe) obesity due to excess calories; M45.9 Ankylosing spondylitis of unspecified sites in spine; Z86.718 Personal history of other venous thrombosis and embolism; Z68.44 Body mass index [BMI] 60.0-69.9, adult ==

== ENCOUNTER → 2019-08-09 | Outpatient (CLI) | payer OTHER | LOC: M.WC 04:20 | DX: L97.811 Non-pressure chronic ulcer of other part of right lower leg limited to breakdown of skin (principal); L97.821 Non-pressure chronic ulcer of other part of left lower leg limited to breakdown of skin; I89.0 Lymphedema, not elsewhere classified; I87.2 Venous insufficiency (chronic) (peripheral); E66.01 Morbid (severe) obesity due to excess calories; M45.9 Ankylosing spondylitis of unspecified sites in spine; Z86.718 Personal history of other venous thrombosis and embolism; Z68.44 Body mass index [BMI] 60.0-69.9, adult ==

== ENCOUNTER → 2019-08-11 | Outpatient (CLI) | payer OTHER | LOC: M.WC 05:10 | DX: L97.811 Non-pressure chronic ulcer of other part of right lower leg limited to breakdown of skin (principal); L97.821 Non-pressure chronic ulcer of other part of left lower leg limited to breakdown of skin; I89.0 Lymphedema, not elsewhere classified; I87.2 Venous insufficiency (chronic) (peripheral); E66.01 Morbid (severe) obesity due to excess calories; M45.9 Ankylosing spondylitis of unspecified sites in spine; Z68.44 Body mass index [BMI] 60.0-69.9, adult; Z86.718 Personal history of other venous thrombosis and embolism ==

== ENCOUNTER → 2019-08-15 | Outpatient (CLI) | payer OTHER | LOC: M.WC 01:50 | DX: L97.811 Non-pressure chronic ulcer of other part of right lower leg limited to breakdown of skin (principal); L97.821 Non-pressure chronic ulcer of other part of left lower leg limited to breakdown of skin; I89.0 Lymphedema, not elsewhere classified; I87.2 Venous insufficiency (chronic) (peripheral); E66.01 Morbid (severe) obesity due to excess calories; M45.9 Ankylosing spondylitis of unspecified sites in spine; Z86.718 Personal history of other venous thrombosis and embolism; Z68.44 Body mass index [BMI] 60.0-69.9, adult ==

== ENCOUNTER → 2019-08-18 | Outpatient (CLI) | payer OTHER | LOC: M.WC 05:03 | DX: L97.811 Non-pressure chronic ulcer of other part of right lower leg limited to breakdown of skin (principal); L97.821 Non-pressure chronic ulcer of other part of left lower leg limited to breakdown of skin; I89.0 Lymphedema, not elsewhere classified; I87.2 Venous insufficiency (chronic) (peripheral); E66.01 Morbid (severe) obesity due to excess calories; M45.9 Ankylosing spondylitis of unspecified sites in spine; Z86.718 Personal history of other venous thrombosis and embolism; Z68.44 Body mass index [BMI] 60.0-69.9, adult ==

== ENCOUNTER → 2019-08-22 | Outpatient (CLI) | payer OTHER | LOC: M.WC 04:38 | DX: L97.811 Non-pressure chronic ulcer of other part of right lower leg limited to breakdown of skin (principal); L97.821 Non-pressure chronic ulcer of other part of left lower leg limited to breakdown of skin; I89.0 Lymphedema, not elsewhere classified; I87.2 Venous insufficiency (chronic) (peripheral); E66.01 Morbid (severe) obesity due to excess calories; M45.9 Ankylosing spondylitis of unspecified sites in spine; Z86.718 Personal history of other venous thrombosis and embolism; Z68.44 Body mass index [BMI] 60.0-69.9, adult ==

== ENCOUNTER → 2019-08-24 | Outpatient (CLI) | payer OTHER | LOC: M.WC 05:45 | DX: L97.821 Non-pressure chronic ulcer of other part of left lower leg limited to breakdown of skin (principal); I87.2 Venous insufficiency (chronic) (peripheral); I89.0 Lymphedema, not elsewhere classified; E66.01 Morbid (severe) obesity due to excess calories; M45.9 Ankylosing spondylitis of unspecified sites in spine; Z86.718 Personal history of other venous thrombosis and embolism; Z68.44 Body mass index [BMI] 60.0-69.9, adult ==

== ENCOUNTER → 2019-08-30 | Outpatient (CLI) | payer OTHER | LOC: M.WC 04:43 | DX: L97.811 Non-pressure chronic ulcer of other part of right lower leg limited to breakdown of skin (principal); L97.821 Non-pressure chronic ulcer of other part of left lower leg limited to breakdown of skin; I89.0 Lymphedema, not elsewhere classified; I87.2 Venous insufficiency (chronic) (peripheral); E66.01 Morbid (severe) obesity due to excess calories; M45.9 Ankylosing spondylitis of unspecified sites in spine; Z86.718 Personal history of other venous thrombosis and embolism; Z68.44 Body mass index [BMI] 60.0-69.9, adult ==

== ENCOUNTER → 2019-09-01 | Outpatient (CLI) | payer OTHER | LOC: M.WC 05:02 | DX: L97.811 Non-pressure chronic ulcer of other part of right lower leg limited to breakdown of skin (principal); L97.821 Non-pressure chronic ulcer of other part of left lower leg limited to breakdown of skin; I89.0 Lymphedema, not elsewhere classified; I87.2 Venous insufficiency (chronic) (peripheral); E66.01 Morbid (severe) obesity due to excess calories; M45.9 Ankylosing spondylitis of unspecified sites in spine; Z86.718 Personal history of other venous thrombosis and embolism; Z68.44 Body mass index [BMI] 60.0-69.9, adult ==

== ENCOUNTER → 2019-09-22 | Outpatient (CLI) | payer OTHER | LOC: M.WC 01:52 | DX: L97.821 Non-pressure chronic ulcer of other part of left lower leg limited to breakdown of skin (principal); L97.811 Non-pressure chronic ulcer of other part of right lower leg limited to breakdown of skin; I89.0 Lymphedema, not elsewhere classified; I87.2 Venous insufficiency (chronic) (peripheral); E66.01 Morbid (severe) obesity due to excess calories; M45.9 Ankylosing spondylitis of unspecified sites in spine; Z86.718 Personal history of other venous thrombosis and embolism; Z68.44 Body mass index [BMI] 60.0-69.9, adult ==

== ENCOUNTER → 2019-09-26 | Outpatient (CLI) | payer OTHER | LOC: M.WC 04:49 | DX: L97.821 Non-pressure chronic ulcer of other part of left lower leg limited to breakdown of skin (principal); L97.811 Non-pressure chronic ulcer of other part of right lower leg limited to breakdown of skin; I89.0 Lymphedema, not elsewhere classified; I87.2 Venous insufficiency (chronic) (peripheral); E66.01 Morbid (severe) obesity due to excess calories; M45.9 Ankylosing spondylitis of unspecified sites in spine; Z86.718 Personal history of other venous thrombosis and embolism; Z68.44 Body mass index [BMI] 60.0-69.9, adult ==

== ENCOUNTER → 2019-09-29 | Outpatient (CLI) | payer OTHER | LOC: M.WC 10:57 | DX: L97.821 Non-pressure chronic ulcer of other part of left lower leg limited to breakdown of skin (principal); I87.2 Venous insufficiency (chronic) (peripheral); I89.0 Lymphedema, not elsewhere classified; E66.01 Morbid (severe) obesity due to excess calories; Z68.44 Body mass index [BMI] 60.0-69.9, adult; Z86.718 Personal history of other venous thrombosis and embolism ==

== ENCOUNTER → 2019-10-04 | Outpatient (CLI) | payer OTHER | LOC: M.WC 04:52 | DX: L97.821 Non-pressure chronic ulcer of other part of left lower leg limited to breakdown of skin (principal); L97.811 Non-pressure chronic ulcer of other part of right lower leg limited to breakdown of skin; I89.0 Lymphedema, not elsewhere classified; I87.2 Venous insufficiency (chronic) (peripheral); E66.01 Morbid (severe) obesity due to excess calories; M45.9 Ankylosing spondylitis of unspecified sites in spine; Z86.718 Personal history of other venous thrombosis and embolism; Z68.44 Body mass index [BMI] 60.0-69.9, adult ==

== ENCOUNTER → 2019-10-06 | Outpatient (CLI) | payer OTHER | LOC: M.WC 09:28 | DX: L97.822 Non-pressure chronic ulcer of other part of left lower leg with fat layer exposed (principal); L97.811 Non-pressure chronic ulcer of other part of right lower leg limited to breakdown of skin; I89.0 Lymphedema, not elsewhere classified; I87.2 Venous insufficiency (chronic) (peripheral); E66.01 Morbid (severe) obesity due to excess calories; M45.9 Ankylosing spondylitis of unspecified sites in spine; Z86.718 Personal history of other venous thrombosis and embolism; Z68.44 Body mass index [BMI] 60.0-69.9, adult ==

== ENCOUNTER → 2019-10-13 | Outpatient (CLI) | payer OTHER | LOC: M.WC 01:51 | DX: L97.821 Non-pressure chronic ulcer of other part of left lower leg limited to breakdown of skin (principal); L97.811 Non-pressure chronic ulcer of other part of right lower leg limited to breakdown of skin; I89.0 Lymphedema, not elsewhere classified; I87.2 Venous insufficiency (chronic) (peripheral); E66.01 Morbid (severe) obesity due to excess calories; M45.9 Ankylosing spondylitis of unspecified sites in spine; Z86.718 Personal history of other venous thrombosis and embolism; Z68.44 Body mass index [BMI] 60.0-69.9, adult ==

== ENCOUNTER → 2019-10-18 | Outpatient (CLI) | payer OTHER | LOC: M.WC 05:12 | DX: L97.821 Non-pressure chronic ulcer of other part of left lower leg limited to breakdown of skin (principal); L97.811 Non-pressure chronic ulcer of other part of right lower leg limited to breakdown of skin; I89.0 Lymphedema, not elsewhere classified; I87.2 Venous insufficiency (chronic) (peripheral); E66.01 Morbid (severe) obesity due to excess calories; M45.9 Ankylosing spondylitis of unspecified sites in spine; Z86.718 Personal history of other venous thrombosis and embolism; Z68.44 Body mass index [BMI] 60.0-69.9, adult ==

== ENCOUNTER → 2019-10-21 | Outpatient (CLI) | payer OTHER | LOC: M.WC 04:07 | DX: L97.821 Non-pressure chronic ulcer of other part of left lower leg limited to breakdown of skin (principal); L97.811 Non-pressure chronic ulcer of other part of right lower leg limited to breakdown of skin; I89.0 Lymphedema, not elsewhere classified; I87.2 Venous insufficiency (chronic) (peripheral); E66.01 Morbid (severe) obesity due to excess calories; M45.9 Ankylosing spondylitis of unspecified sites in spine; Z86.73 Personal history of transient ischemic attack (TIA), and cerebral infarction without residual deficits; Z68.44 Body mass index [BMI] 60.0-69.9, adult ==

== ENCOUNTER → 2019-10-25 | Outpatient (CLI) | payer OTHER | LOC: M.WC 03:36 | DX: L97.821 Non-pressure chronic ulcer of other part of left lower leg limited to breakdown of skin (principal); L97.811 Non-pressure chronic ulcer of other part of right lower leg limited to breakdown of skin; I89.0 Lymphedema, not elsewhere classified; I87.2 Venous insufficiency (chronic) (peripheral); E66.01 Morbid (severe) obesity due to excess calories; M45.9 Ankylosing spondylitis of unspecified sites in spine; Z86.718 Personal history of other venous thrombosis and embolism; Z68.44 Body mass index [BMI] 60.0-69.9, adult ==

== ENCOUNTER → 2019-10-28 | Outpatient (CLI) | payer OTHER | LOC: M.WC 05:20 | DX: L97.821 Non-pressure chronic ulcer of other part of left lower leg limited to breakdown of skin (principal); L97.811 Non-pressure chronic ulcer of other part of right lower leg limited to breakdown of skin; I89.0 Lymphedema, not elsewhere classified; I87.2 Venous insufficiency (chronic) (peripheral); E66.01 Morbid (severe) obesity due to excess calories; M45.9 Ankylosing spondylitis of unspecified sites in spine; Z86.718 Personal history of other venous thrombosis and embolism; Z68.44 Body mass index [BMI] 60.0-69.9, adult ==

== ENCOUNTER → 2019-11-01 | Outpatient (CLI) | payer OTHER | LOC: M.WC 05:19 | DX: L97.821 Non-pressure chronic ulcer of other part of left lower leg limited to breakdown of skin (principal); L97.811 Non-pressure chronic ulcer of other part of right lower leg limited to breakdown of skin; I89.0 Lymphedema, not elsewhere classified; I87.2 Venous insufficiency (chronic) (peripheral); E66.01 Morbid (severe) obesity due to excess calories; M45.9 Ankylosing spondylitis of unspecified sites in spine; Z86.718 Personal history of other venous thrombosis and embolism; Z68.44 Body mass index [BMI] 60.0-69.9, adult ==

== ENCOUNTER → 2019-11-03 | Outpatient (CLI) | payer OTHER | LOC: M.WC 04:35 | DX: L97.811 Non-pressure chronic ulcer of other part of right lower leg limited to breakdown of skin (principal); L97.821 Non-pressure chronic ulcer of other part of left lower leg limited to breakdown of skin; I89.0 Lymphedema, not elsewhere classified; I87.2 Venous insufficiency (chronic) (peripheral); E66.01 Morbid (severe) obesity due to excess calories; M45.9 Ankylosing spondylitis of unspecified sites in spine; Z86.718 Personal history of other venous thrombosis and embolism; Z68.44 Body mass index [BMI] 60.0-69.9, adult ==

== ENCOUNTER → 2019-11-07 | Outpatient (CLI) | payer OTHER | LOC: M.WC 01:10 | DX: L97.821 Non-pressure chronic ulcer of other part of left lower leg limited to breakdown of skin (principal); L97.811 Non-pressure chronic ulcer of other part of right lower leg limited to breakdown of skin; I89.0 Lymphedema, not elsewhere classified; I87.2 Venous insufficiency (chronic) (peripheral); E66.01 Morbid (severe) obesity due to excess calories; M45.9 Ankylosing spondylitis of unspecified sites in spine; Z86.718 Personal history of other venous thrombosis and embolism; Z68.44 Body mass index [BMI] 60.0-69.9, adult ==

== ENCOUNTER → 2019-11-10 | Outpatient (CLI) | payer OTHER | LOC: M.WC 02:12 | DX: L97.811 Non-pressure chronic ulcer of other part of right lower leg limited to breakdown of skin (principal); L97.821 Non-pressure chronic ulcer of other part of left lower leg limited to breakdown of skin; I89.0 Lymphedema, not elsewhere classified; I87.2 Venous insufficiency (chronic) (peripheral); E66.01 Morbid (severe) obesity due to excess calories; M45.9 Ankylosing spondylitis of unspecified sites in spine; Z86.718 Personal history of other venous thrombosis and embolism; Z68.44 Body mass index [BMI] 60.0-69.9, adult ==

== ENCOUNTER → 2019-11-14 | Outpatient (CLI) | payer OTHER | LOC: M.WC 08:00 | DX: L97.811 Non-pressure chronic ulcer of other part of right lower leg limited to breakdown of skin (principal); L97.821 Non-pressure chronic ulcer of other part of left lower leg limited to breakdown of skin; I89.0 Lymphedema, not elsewhere classified; I87.2 Venous insufficiency (chronic) (peripheral); E66.01 Morbid (severe) obesity due to excess calories; M45.9 Ankylosing spondylitis of unspecified sites in spine; Z86.718 Personal history of other venous thrombosis and embolism; Z68.44 Body mass index [BMI] 60.0-69.9, adult ==

== ENCOUNTER → 2019-11-17 | Outpatient (CLI) | payer OTHER | LOC: M.WC 04:41 | DX: L97.821 Non-pressure chronic ulcer of other part of left lower leg limited to breakdown of skin (principal); L97.811 Non-pressure chronic ulcer of other part of right lower leg limited to breakdown of skin; I89.0 Lymphedema, not elsewhere classified; I87.2 Venous insufficiency (chronic) (peripheral); E66.01 Morbid (severe) obesity due to excess calories; M45.9 Ankylosing spondylitis of unspecified sites in spine; Z86.718 Personal history of other venous thrombosis and embolism; Z68.44 Body mass index [BMI] 60.0-69.9, adult ==

== ENCOUNTER → 2019-11-28 | Outpatient (CLI) | payer OTHER | LOC: M.WC 02:17 | DX: L97.821 Non-pressure chronic ulcer of other part of left lower leg limited to breakdown of skin (principal); L97.811 Non-pressure chronic ulcer of other part of right lower leg limited to breakdown of skin; I89.0 Lymphedema, not elsewhere classified; I87.2 Venous insufficiency (chronic) (peripheral); E66.01 Morbid (severe) obesity due to excess calories; M45.9 Ankylosing spondylitis of unspecified sites in spine; Z86.718 Personal history of other venous thrombosis and embolism; Z68.44 Body mass index [BMI] 60.0-69.9, adult ==

== ENCOUNTER → 2019-12-02 | Outpatient (CLI) | payer OTHER | LOC: M.WC 03:45 | DX: L97.821 Non-pressure chronic ulcer of other part of left lower leg limited to breakdown of skin (principal); L97.811 Non-pressure chronic ulcer of other part of right lower leg limited to breakdown of skin; I89.0 Lymphedema, not elsewhere classified; I87.2 Venous insufficiency (chronic) (peripheral); E66.01 Morbid (severe) obesity due to excess calories; M45.9 Ankylosing spondylitis of unspecified sites in spine; Z86.718 Personal history of other venous thrombosis and embolism; Z68.44 Body mass index [BMI] 60.0-69.9, adult ==

== ENCOUNTER → 2019-12-05 | Outpatient (CLI) | payer OTHER | LOC: M.WC 01:09 | DX: L97.821 Non-pressure chronic ulcer of other part of left lower leg limited to breakdown of skin (principal); L97.811 Non-pressure chronic ulcer of other part of right lower leg limited to breakdown of skin; I89.0 Lymphedema, not elsewhere classified; I87.2 Venous insufficiency (chronic) (peripheral); E66.01 Morbid (severe) obesity due to excess calories; M45.9 Ankylosing spondylitis of unspecified sites in spine; Z86.718 Personal history of other venous thrombosis and embolism; Z68.44 Body mass index [BMI] 60.0-69.9, adult ==

== ENCOUNTER → 2019-12-09 | Outpatient (CLI) | payer OTHER | LOC: M.WC 02:00 | DX: L97.821 Non-pressure chronic ulcer of other part of left lower leg limited to breakdown of skin (principal); L97.811 Non-pressure chronic ulcer of other part of right lower leg limited to breakdown of skin; I89.0 Lymphedema, not elsewhere classified; I87.2 Venous insufficiency (chronic) (peripheral); E66.01 Morbid (severe) obesity due to excess calories; M45.9 Ankylosing spondylitis of unspecified sites in spine; Z86.718 Personal history of other venous thrombosis and embolism; Z68.44 Body mass index [BMI] 60.0-69.9, adult ==

== ENCOUNTER → 2019-12-13 | Outpatient (CLI) | payer OTHER | LOC: M.WC 03:48 | DX: L97.811 Non-pressure chronic ulcer of other part of right lower leg limited to breakdown of skin (principal); L97.821 Non-pressure chronic ulcer of other part of left lower leg limited to breakdown of skin; I89.0 Lymphedema, not elsewhere classified; I87.2 Venous insufficiency (chronic) (peripheral); E66.01 Morbid (severe) obesity due to excess calories; M45.9 Ankylosing spondylitis of unspecified sites in spine; Z86.718 Personal history of other venous thrombosis and embolism; Z68.44 Body mass index [BMI] 60.0-69.9, adult ==

== ENCOUNTER → 2019-12-15 | Outpatient (CLI) | payer OTHER | LOC: M.WC 03:55 | DX: L97.821 Non-pressure chronic ulcer of other part of left lower leg limited to breakdown of skin (principal); L97.811 Non-pressure chronic ulcer of other part of right lower leg limited to breakdown of skin; I89.0 Lymphedema, not elsewhere classified; I87.2 Venous insufficiency (chronic) (peripheral); E66.01 Morbid (severe) obesity due to excess calories; M45.9 Ankylosing spondylitis of unspecified sites in spine; Z86.73 Personal history of transient ischemic attack (TIA), and cerebral infarction without residual deficits; Z68.44 Body mass index [BMI] 60.0-69.9, adult ==

== ENCOUNTER → 2019-12-22 | Outpatient (CLI) | payer OTHER | LOC: M.WC 02:43 | DX: L97.811 Non-pressure chronic ulcer of other part of right lower leg limited to breakdown of skin (principal); L97.821 Non-pressure chronic ulcer of other part of left lower leg limited to breakdown of skin; I89.0 Lymphedema, not elsewhere classified; I87.2 Venous insufficiency (chronic) (peripheral); E66.01 Morbid (severe) obesity due to excess calories; M45.9 Ankylosing spondylitis of unspecified sites in spine; Z86.73 Personal history of transient ischemic attack (TIA), and cerebral infarction without residual deficits; Z68.44 Body mass index [BMI] 60.0-69.9, adult ==

== ENCOUNTER 2019-12-27 03:44 | Emergency (ER) | payer OTHER ==
[~2019-12-27] VITALS: Ht 188 cm; Wt 227.7 kg
[~2019-12-27 03:44] MED LIST changes: -HYDROCODON-ACE1 EAC8 PO
[2019-12-27 05:04] VITALS: BP 141/93
[2019-12-27] MEDS ORDERED: HYDROCODON-ACE1 EAC8 PO (05:04)
== END 2019-12-27 05:06 | disposition home or self-care (01) ==
LOC: M.ERS 03:44
DX: S80.01XA Contusion of right knee, initial encounter (principal); S60.222A Contusion of left hand, initial encounter; S60.221A Contusion of right hand, initial encounter; Z90.49 Acquired absence of other specified parts of digestive tract; Z86.718 Personal history of other venous thrombosis and embolism; W01.0XXA Fall on same level from slipping, tripping and stumbling without subsequent striking against object, initial encounter; Y93.89 Activity, other specified; Y92.89 Other specified places as the place of occurrence of the external cause; Y99.8 Other external cause status

== ENCOUNTER → 2019-12-27 | Outpatient (CLI) | payer OTHER ==
[~2019-12-27] MED LIST changes: +HYDROCODON-ACE1 EAC8 PO
== END ==
LOC: M.WC 04:43
DX: L97.811 Non-pressure chronic ulcer of other part of right lower leg limited to breakdown of skin (principal); L97.821 Non-pressure chronic ulcer of other part of left lower leg limited to breakdown of skin; I89.0 Lymphedema, not elsewhere classified; I87.2 Venous insufficiency (chronic) (peripheral); E66.01 Morbid (severe) obesity due to excess calories; M45.9 Ankylosing spondylitis of unspecified sites in spine; Z86.718 Personal history of other venous thrombosis and embolism; Z68.44 Body mass index [BMI] 60.0-69.9, adult

== ENCOUNTER → 2019-12-29 | Outpatient (CLI) | payer OTHER ==
[~2019-12-29] MED LIST changes: +HYDROCODON-ACE1 EAC8 PO
== END ==
LOC: M.WC 01:37
DX: L97.821 Non-pressure chronic ulcer of other part of left lower leg limited to breakdown of skin (principal); L97.811 Non-pressure chronic ulcer of other part of right lower leg limited to breakdown of skin; I89.0 Lymphedema, not elsewhere classified; I87.2 Venous insufficiency (chronic) (peripheral); E66.01 Morbid (severe) obesity due to excess calories; M45.9 Ankylosing spondylitis of unspecified sites in spine; Z86.718 Personal history of other venous thrombosis and embolism; Z68.44 Body mass index [BMI] 60.0-69.9, adult

== ENCOUNTER → 2020-01-03 | Outpatient (CLI) | payer OTHER | LOC: M.WC 07:00 | DX: L97.811 Non-pressure chronic ulcer of other part of right lower leg limited to breakdown of skin (principal); L97.821 Non-pressure chronic ulcer of other part of left lower leg limited to breakdown of skin; I89.0 Lymphedema, not elsewhere classified; I87.2 Venous insufficiency (chronic) (peripheral); E66.01 Morbid (severe) obesity due to excess calories; M45.9 Ankylosing spondylitis of unspecified sites in spine; Z86.718 Personal history of other venous thrombosis and embolism; Z68.44 Body mass index [BMI] 60.0-69.9, adult ==

== ENCOUNTER → 2020-01-05 | Outpatient (CLI) | payer OTHER | LOC: M.WC 04:56 | DX: L97.821 Non-pressure chronic ulcer of other part of left lower leg limited to breakdown of skin (principal); L97.811 Non-pressure chronic ulcer of other part of right lower leg limited to breakdown of skin; I89.0 Lymphedema, not elsewhere classified; I87.2 Venous insufficiency (chronic) (peripheral); E66.01 Morbid (severe) obesity due to excess calories; M45.9 Ankylosing spondylitis of unspecified sites in spine; Z68.44 Body mass index [BMI] 60.0-69.9, adult; Z86.718 Personal history of other venous thrombosis and embolism ==

== ENCOUNTER → 2020-01-10 | Outpatient (CLI) | payer OTHER ==
[~2020-01-10] MED LIST changes: +DOXYCYCLINE 10100 M2 PO
== END ==
LOC: M.WC 01:39
DX: L97.811 Non-pressure chronic ulcer of other part of right lower leg limited to breakdown of skin (principal); L97.821 Non-pressure chronic ulcer of other part of left lower leg limited to breakdown of skin; S80.11XA Contusion of right lower leg, initial encounter; I89.0 Lymphedema, not elsewhere classified; I87.2 Venous insufficiency (chronic) (peripheral); E66.01 Morbid (severe) obesity due to excess calories; M45.9 Ankylosing spondylitis of unspecified sites in spine; Z86.718 Personal history of other venous thrombosis and embolism; Z68.44 Body mass index [BMI] 60.0-69.9, adult; W19.XXXA Unspecified fall, initial encounter; Y93.89 Activity, other specified; Y92.89 Other specified places as the place of occurrence of the external cause; Y99.8 Other external cause status

== ENCOUNTER → 2020-01-10 | Outpatient (CLI) | payer OTHER | LOC: M.ULTRA 11:45 | DX: M79.661 Pain in right lower leg (principal); M79.89 Other specified soft tissue disorders ==

== ENCOUNTER → 2020-01-11 | Outpatient (CLI) | payer OTHER | LOC: M.WC 04:59 | DX: L97.821 Non-pressure chronic ulcer of other part of left lower leg limited to breakdown of skin (principal); S80.11XD Contusion of right lower leg, subsequent encounter; I89.0 Lymphedema, not elsewhere classified; I87.2 Venous insufficiency (chronic) (peripheral); E66.01 Morbid (severe) obesity due to excess calories; M45.9 Ankylosing spondylitis of unspecified sites in spine; Z86.718 Personal history of other venous thrombosis and embolism; Z68.44 Body mass index [BMI] 60.0-69.9, adult; W19.XXXD Unspecified fall, subsequent encounter ==

== ENCOUNTER → 2020-01-12 | Day surgery (SDC) | payer OTHER ==
--- NOTE | ~2020-01-12 | OP ---
[address] [address] OPERATIVE REPORT Name: SHUKRI SUE Room: [facility]#: [id number] Admission: 01/12/20 Attend Phys: Fartun Harding DO Discharge: Date of : 67 Report #: [id number] THIS REPORT FOR: //name// cc: Clarence Solomon MD, Gregory A. MD ~ THIS REPORT FOR: //name// CC: Fartun Solomon MD DATE OF SERVICE: 01/12/2020 PREOPERATIVE DIAGNOSIS: Right lower extremity hematoma. POSTOPERATIVE DIAGNOSIS: Right lower extremity hematoma. SURGEON: Fartun Harding DO ASSISTANTS: Noelle Guidry MD, PGY5 and Shaheed York DO, PGY4. OPERATION PERFORMED: Evacuation of right lower extremity hematoma. ANESTHESIA: Local MAC. ESTIMATED BLOOD LOSS: 5 mL. SPECIMEN: None. COMPLICATIONS: None. FINDINGS: A 100 mL of old blood evacuated. INDICATIONS: The patient is a 54-year-old male on Xarelto who had a traumatic wound to his right anterior lower leg with a resultant underlying hematoma. The hematoma was not resolving and he had significant pain at this location, so he was offered an evacuation of the hematoma. All risks and benefits were discussed and he wished to proceed. DESCRIPTION OF PROCEDURE: After informed consent was obtained, the patient was brought to the operating room and placed in the supine position. Local MAC was administered. Surgical pause was held to confirm proper patient and procedure. The patient was prepped and draped in the usual sterile fashion, 1% lidocaine with epinephrine was injected at the eschar that was located over the proximal lower right extremity. After injecting local anesthetic, a 15 blade was used to excise a 2 x 2 cm eschar. As soon as the eschar was debrided, [place] [address] OPERATIVE REPORT Name: LINETTESHUKRI Room: [facility]#: [id number] Admission: 01/12/20 Attend Phys: Fartun Harding, Discharge: Date of : 67 Report #: [id number] encountered and suctioned. A Jennifer was used to enter the hematoma cavity and the suction was used to bluntly break up all of the hematoma and suction it. The cavity was approximately 7 x 7 x 3 cm, a 100 mL of blood were evacuated. The cavity was thoroughly suctioned, irrigated and repeatedly suctioned until dry. It was packed with 1 inch plain packing and dressed with Aquacel Ag and Mepilex. He had an additional lower extremity wound that was not surgically treated. However, it was redressed with Aquacel Ag, Mepilex and a light DALLAS compression was applied to his leg. He was emerged from anesthesia without difficulty. The patient tolerated the procedure well without complication. All counts were correct. He was transferred to the PACU in stable condition. By: 1205 1230DO donavan Dunbar
[2020-01-12 10:49] LABS: PROTIME 10.2 Seconds (9.20-11.50)
== END | disposition home or self-care (01) ==
LOC: M.SUR 09:52
PROVIDERS: Surgery
DX: S80.11XA Contusion of right lower leg, initial encounter (principal); Z98.890 Other specified postprocedural states; Z90.49 Acquired absence of other specified parts of digestive tract; Z86.718 Personal history of other venous thrombosis and embolism; Z79.01 Long term (current) use of anticoagulants; Z79.899 Other long term (current) drug therapy; X58.XXXA Exposure to other specified factors, initial encounter; Y93.89 Activity, other specified; Y92.89 Other specified places as the place of occurrence of the external cause; Y99.8 Other external cause status

== ENCOUNTER → 2020-01-18 | Outpatient (CLI) | payer OTHER | LOC: M.WC 03:25 | DX: L97.821 Non-pressure chronic ulcer of other part of left lower leg limited to breakdown of skin (principal); S81.801D Unspecified open wound, right lower leg, subsequent encounter; S80.11XD Contusion of right lower leg, subsequent encounter; I89.0 Lymphedema, not elsewhere classified; I87.2 Venous insufficiency (chronic) (peripheral); E66.01 Morbid (severe) obesity due to excess calories; M45.9 Ankylosing spondylitis of unspecified sites in spine; Z86.718 Personal history of other venous thrombosis and embolism; Z68.44 Body mass index [BMI] 60.0-69.9, adult; W19.XXXD Unspecified fall, subsequent encounter ==

== ENCOUNTER → 2020-01-25 | Outpatient (CLI) | payer OTHER | LOC: M.WC 03:18 | DX: L97.821 Non-pressure chronic ulcer of other part of left lower leg limited to breakdown of skin (principal); S80.01XD Contusion of right knee, subsequent encounter; I89.0 Lymphedema, not elsewhere classified; I87.2 Venous insufficiency (chronic) (peripheral); E66.01 Morbid (severe) obesity due to excess calories; M45.9 Ankylosing spondylitis of unspecified sites in spine; Z86.718 Personal history of other venous thrombosis and embolism; Z68.44 Body mass index [BMI] 60.0-69.9, adult; W19.XXXD Unspecified fall, subsequent encounter ==

== ENCOUNTER → 2020-02-01 | Outpatient (CLI) | payer OTHER | LOC: M.WC 05:27 | DX: L97.811 Non-pressure chronic ulcer of other part of right lower leg limited to breakdown of skin (principal); S80.01XD Contusion of right knee, subsequent encounter; L97.821 Non-pressure chronic ulcer of other part of left lower leg limited to breakdown of skin; E66.01 Morbid (severe) obesity due to excess calories; I89.0 Lymphedema, not elsewhere classified; I87.2 Venous insufficiency (chronic) (peripheral); M45.9 Ankylosing spondylitis of unspecified sites in spine; Z86.718 Personal history of other venous thrombosis and embolism; W19.XXXD Unspecified fall, subsequent encounter ==

== ENCOUNTER → 2020-02-08 | Outpatient (CLI) | payer OTHER | LOC: M.RAD 09:00 → M.WC 10:00 → M.RAD 11:26 | DX: L97.811 Non-pressure chronic ulcer of other part of right lower leg limited to breakdown of skin (principal); L97.821 Non-pressure chronic ulcer of other part of left lower leg limited to breakdown of skin; S80.11XD Contusion of right lower leg, subsequent encounter; S81.001D Unspecified open wound, right knee, subsequent encounter; I89.0 Lymphedema, not elsewhere classified; I87.2 Venous insufficiency (chronic) (peripheral); E66.01 Morbid (severe) obesity due to excess calories; M45.9 Ankylosing spondylitis of unspecified sites in spine; M25.532 Pain in left wrist; Z86.718 Personal history of other venous thrombosis and embolism; Z68.44 Body mass index [BMI] 60.0-69.9, adult; X58.XXXD Exposure to other specified factors, subsequent encounter ==

== ENCOUNTER → 2020-02-15 | Outpatient (CLI) | payer OTHER | LOC: M.WC 01:42 | DX: S80.01XD Contusion of right knee, subsequent encounter (principal); I89.0 Lymphedema, not elsewhere classified; I87.2 Venous insufficiency (chronic) (peripheral); M45.9 Ankylosing spondylitis of unspecified sites in spine; E66.01 Morbid (severe) obesity due to excess calories; Z86.718 Personal history of other venous thrombosis and embolism; Z68.44 Body mass index [BMI] 60.0-69.9, adult; X58.XXXD Exposure to other specified factors, subsequent encounter ==

== ENCOUNTER → 2020-02-22 | Outpatient (CLI) | payer OTHER | LOC: M.WC 04:10 | DX: L97.822 Non-pressure chronic ulcer of other part of left lower leg with fat layer exposed (principal); S80.811D Abrasion, right lower leg, subsequent encounter; I87.2 Venous insufficiency (chronic) (peripheral); I89.0 Lymphedema, not elsewhere classified; M45.9 Ankylosing spondylitis of unspecified sites in spine; E66.01 Morbid (severe) obesity due to excess calories; Z68.44 Body mass index [BMI] 60.0-69.9, adult; Z86.718 Personal history of other venous thrombosis and embolism; Z79.01 Long term (current) use of anticoagulants; X58.XXXD Exposure to other specified factors, subsequent encounter ==

== ENCOUNTER → 2020-02-29 | Outpatient (CLI) | payer OTHER | LOC: M.WC 04:43 | DX: L97.812 Non-pressure chronic ulcer of other part of right lower leg with fat layer exposed (principal); L97.821 Non-pressure chronic ulcer of other part of left lower leg limited to breakdown of skin; S80.11XD Contusion of right lower leg, subsequent encounter; I89.0 Lymphedema, not elsewhere classified; I87.2 Venous insufficiency (chronic) (peripheral); E66.01 Morbid (severe) obesity due to excess calories; M45.9 Ankylosing spondylitis of unspecified sites in spine; Z86.718 Personal history of other venous thrombosis and embolism; Z68.44 Body mass index [BMI] 60.0-69.9, adult; W19.XXXD Unspecified fall, subsequent encounter ==

== ENCOUNTER → 2020-03-07 | Outpatient (CLI) | payer OTHER | LOC: M.WC 04:21 | PROVIDERS: ATTEND Surgery | DX: L97.822 Non-pressure chronic ulcer of other part of left lower leg with fat layer exposed (principal); S80.11XD Contusion of right lower leg, subsequent encounter; I89.0 Lymphedema, not elsewhere classified; I87.2 Venous insufficiency (chronic) (peripheral); E66.01 Morbid (severe) obesity due to excess calories; M45.9 Ankylosing spondylitis of unspecified sites in spine; Z86.718 Personal history of other venous thrombosis and embolism; Z68.44 Body mass index [BMI] 60.0-69.9, adult; W19.XXXD Unspecified fall, subsequent encounter ==

== ENCOUNTER → 2020-03-14 | Outpatient (CLI) | payer OTHER | LOC: M.WC 04:49 | PROVIDERS: ATTEND Internal Medicine | DX: L97.822 Non-pressure chronic ulcer of other part of left lower leg with fat layer exposed (principal); S80.11XD Contusion of right lower leg, subsequent encounter; I87.2 Venous insufficiency (chronic) (peripheral); I89.0 Lymphedema, not elsewhere classified; E66.01 Morbid (severe) obesity due to excess calories; Z68.44 Body mass index [BMI] 60.0-69.9, adult; Z86.718 Personal history of other venous thrombosis and embolism; Z79.01 Long term (current) use of anticoagulants; X58.XXXD Exposure to other specified factors, subsequent encounter ==

== ENCOUNTER → 2020-03-22 | Outpatient (CLI) | payer OTHER | LOC: M.WC 04:58 | PROVIDERS: ATTEND Family Medicine | DX: L97.822 Non-pressure chronic ulcer of other part of left lower leg with fat layer exposed (principal); S81.001D Unspecified open wound, right knee, subsequent encounter; I89.0 Lymphedema, not elsewhere classified; I87.2 Venous insufficiency (chronic) (peripheral); E66.01 Morbid (severe) obesity due to excess calories; M45.9 Ankylosing spondylitis of unspecified sites in spine; Z86.718 Personal history of other venous thrombosis and embolism; Z68.44 Body mass index [BMI] 60.0-69.9, adult; X58.XXXD Exposure to other specified factors, subsequent encounter ==

== ENCOUNTER → 2020-03-28 | Outpatient (CLI) | payer OTHER | LOC: M.WC 03:27 | PROVIDERS: ATTEND Surgery | DX: L97.821 Non-pressure chronic ulcer of other part of left lower leg limited to breakdown of skin (principal); S81.001D Unspecified open wound, right knee, subsequent encounter; I89.0 Lymphedema, not elsewhere classified; I87.2 Venous insufficiency (chronic) (peripheral); E66.01 Morbid (severe) obesity due to excess calories; M45.9 Ankylosing spondylitis of unspecified sites in spine; Z86.718 Personal history of other venous thrombosis and embolism; Z68.44 Body mass index [BMI] 60.0-69.9, adult; X58.XXXD Exposure to other specified factors, subsequent encounter ==

== ENCOUNTER → 2020-04-06 | Outpatient (CLI) | payer OTHER | LOC: M.WC 04-05 08:00 | PROVIDERS: ATTEND Family Medicine | DX: L97.822 Non-pressure chronic ulcer of other part of left lower leg with fat layer exposed (principal); L97.811 Non-pressure chronic ulcer of other part of right lower leg limited to breakdown of skin; S80.11XD Contusion of right lower leg, subsequent encounter; I87.2 Venous insufficiency (chronic) (peripheral); I89.0 Lymphedema, not elsewhere classified; M45.9 Ankylosing spondylitis of unspecified sites in spine; E66.01 Morbid (severe) obesity due to excess calories; Z68.44 Body mass index [BMI] 60.0-69.9, adult; Z86.718 Personal history of other venous thrombosis and embolism; Z79.01 Long term (current) use of anticoagulants; X58.XXXD Exposure to other specified factors, subsequent encounter ==

== ENCOUNTER → 2020-04-13 | Outpatient (CLI) | payer OTHER | LOC: M.WC 04:17 | PROVIDERS: ATTEND Family Medicine | DX: L97.822 Non-pressure chronic ulcer of other part of left lower leg with fat layer exposed (principal); S81.001D Unspecified open wound, right knee, subsequent encounter; I87.2 Venous insufficiency (chronic) (peripheral); I89.0 Lymphedema, not elsewhere classified; E66.01 Morbid (severe) obesity due to excess calories; M45.9 Ankylosing spondylitis of unspecified sites in spine; Z68.44 Body mass index [BMI] 60.0-69.9, adult; Z86.718 Personal history of other venous thrombosis and embolism; Z79.01 Long term (current) use of anticoagulants; X58.XXXD Exposure to other specified factors, subsequent encounter ==

== ENCOUNTER → 2020-04-18 | Outpatient (CLI) | payer OTHER | LOC: M.WC 05:14 | PROVIDERS: ATTEND Surgery | DX: L97.821 Non-pressure chronic ulcer of other part of left lower leg limited to breakdown of skin (principal); I89.0 Lymphedema, not elsewhere classified; I87.2 Venous insufficiency (chronic) (peripheral); E66.01 Morbid (severe) obesity due to excess calories; M45.9 Ankylosing spondylitis of unspecified sites in spine; Z86.718 Personal history of other venous thrombosis and embolism; Z68.44 Body mass index [BMI] 60.0-69.9, adult ==

== ENCOUNTER → 2020-04-26 | Outpatient (CLI) | payer OTHER | LOC: M.WC 03:58 | PROVIDERS: ATTEND Family Medicine | DX: L97.811 Non-pressure chronic ulcer of other part of right lower leg limited to breakdown of skin (principal); L97.821 Non-pressure chronic ulcer of other part of left lower leg limited to breakdown of skin; S80.11XD Contusion of right lower leg, subsequent encounter; E66.01 Morbid (severe) obesity due to excess calories; I89.0 Lymphedema, not elsewhere classified; I87.2 Venous insufficiency (chronic) (peripheral); M45.9 Ankylosing spondylitis of unspecified sites in spine; Z86.718 Personal history of other venous thrombosis and embolism; Z68.44 Body mass index [BMI] 60.0-69.9, adult; W19.XXXD Unspecified fall, subsequent encounter ==

== ENCOUNTER → 2020-05-01 | Outpatient (CLI) | payer OTHER | LOC: M.WC 06:20 | PROVIDERS: ATTEND Family Medicine | DX: L97.821 Non-pressure chronic ulcer of other part of left lower leg limited to breakdown of skin (principal); L97.811 Non-pressure chronic ulcer of other part of right lower leg limited to breakdown of skin; S80.11XD Contusion of right lower leg, subsequent encounter; I89.0 Lymphedema, not elsewhere classified; I87.2 Venous insufficiency (chronic) (peripheral); E66.01 Morbid (severe) obesity due to excess calories; M45.9 Ankylosing spondylitis of unspecified sites in spine; Z86.718 Personal history of other venous thrombosis and embolism; Z68.44 Body mass index [BMI] 60.0-69.9, adult; X58.XXXD Exposure to other specified factors, subsequent encounter ==

== ENCOUNTER → 2020-05-04 | Outpatient (CLI) | payer OTHER | LOC: M.WC 01:25 | PROVIDERS: ATTEND Family Medicine | DX: L97.821 Non-pressure chronic ulcer of other part of left lower leg limited to breakdown of skin (principal); S80.11XD Contusion of right lower leg, subsequent encounter; I87.2 Venous insufficiency (chronic) (peripheral); I89.0 Lymphedema, not elsewhere classified; S12.200D Unspecified displaced fracture of third cervical vertebra, subsequent encounter for fracture with routine healing; M45.9 Ankylosing spondylitis of unspecified sites in spine; E66.01 Morbid (severe) obesity due to excess calories; Z68.44 Body mass index [BMI] 60.0-69.9, adult; Z86.718 Personal history of other venous thrombosis and embolism; Z79.01 Long term (current) use of anticoagulants; W19.XXXD Unspecified fall, subsequent encounter ==

== ENCOUNTER → 2020-05-09 | Outpatient (CLI) | payer OTHER | LOC: M.WC 04:33 | PROVIDERS: ATTEND Family Medicine | DX: L97.811 Non-pressure chronic ulcer of other part of right lower leg limited to breakdown of skin (principal); L97.821 Non-pressure chronic ulcer of other part of left lower leg limited to breakdown of skin; S80.11XD Contusion of right lower leg, subsequent encounter; E66.01 Morbid (severe) obesity due to excess calories; I89.0 Lymphedema, not elsewhere classified; I87.2 Venous insufficiency (chronic) (peripheral); M45.9 Ankylosing spondylitis of unspecified sites in spine; Z86.718 Personal history of other venous thrombosis and embolism; Z68.44 Body mass index [BMI] 60.0-69.9, adult; W19.XXXD Unspecified fall, subsequent encounter ==

== ENCOUNTER → 2020-05-14 | Outpatient (CLI) | payer OTHER | LOC: M.WC 04:06 | PROVIDERS: ATTEND Family Medicine | DX: L97.822 Non-pressure chronic ulcer of other part of left lower leg with fat layer exposed (principal); L97.811 Non-pressure chronic ulcer of other part of right lower leg limited to breakdown of skin; S80.11XD Contusion of right lower leg, subsequent encounter; I89.0 Lymphedema, not elsewhere classified; I87.2 Venous insufficiency (chronic) (peripheral); E66.01 Morbid (severe) obesity due to excess calories; M45.9 Ankylosing spondylitis of unspecified sites in spine; Z86.718 Personal history of other venous thrombosis and embolism; Z68.44 Body mass index [BMI] 60.0-69.9, adult; W19.XXXD Unspecified fall, subsequent encounter ==

== ENCOUNTER → 2020-05-18 | Outpatient (CLI) | payer OTHER | LOC: M.WC 04:15 | PROVIDERS: ATTEND Family Medicine | DX: L97.821 Non-pressure chronic ulcer of other part of left lower leg limited to breakdown of skin (principal); L97.811 Non-pressure chronic ulcer of other part of right lower leg limited to breakdown of skin; S80.11XD Contusion of right lower leg, subsequent encounter; I89.0 Lymphedema, not elsewhere classified; I87.2 Venous insufficiency (chronic) (peripheral); M45.9 Ankylosing spondylitis of unspecified sites in spine; E66.01 Morbid (severe) obesity due to excess calories; Z68.44 Body mass index [BMI] 60.0-69.9, adult; Z86.718 Personal history of other venous thrombosis and embolism; Z79.01 Long term (current) use of anticoagulants; X58.XXXD Exposure to other specified factors, subsequent encounter ==

== ENCOUNTER → 2020-05-22 | Outpatient (CLI) | payer OTHER | LOC: M.WC 04:26 | PROVIDERS: ATTEND Family Medicine | DX: L97.811 Non-pressure chronic ulcer of other part of right lower leg limited to breakdown of skin (principal); L97.821 Non-pressure chronic ulcer of other part of left lower leg limited to breakdown of skin; S80.11XD Contusion of right lower leg, subsequent encounter; I89.0 Lymphedema, not elsewhere classified; I87.2 Venous insufficiency (chronic) (peripheral); E66.01 Morbid (severe) obesity due to excess calories; M45.9 Ankylosing spondylitis of unspecified sites in spine; Z86.718 Personal history of other venous thrombosis and embolism; Z68.44 Body mass index [BMI] 60.0-69.9, adult; W19.XXXD Unspecified fall, subsequent encounter ==

== ENCOUNTER → 2020-05-25 | Outpatient (CLI) | payer OTHER | LOC: M.WC 03:41 | PROVIDERS: ATTEND Family Medicine | DX: L97.822 Non-pressure chronic ulcer of other part of left lower leg with fat layer exposed (principal); S12.9XXD Fracture of neck, unspecified, subsequent encounter; I87.2 Venous insufficiency (chronic) (peripheral); I89.0 Lymphedema, not elsewhere classified; E66.01 Morbid (severe) obesity due to excess calories; M45.9 Ankylosing spondylitis of unspecified sites in spine; Z68.44 Body mass index [BMI] 60.0-69.9, adult; Z86.718 Personal history of other venous thrombosis and embolism; Z79.01 Long term (current) use of anticoagulants; W19.XXXD Unspecified fall, subsequent encounter ==

== ENCOUNTER → 2020-05-29 | Outpatient (CLI) | payer OTHER | LOC: M.WC 03:49 | PROVIDERS: ATTEND Family Medicine | DX: L97.822 Non-pressure chronic ulcer of other part of left lower leg with fat layer exposed (principal); I89.0 Lymphedema, not elsewhere classified; I87.2 Venous insufficiency (chronic) (peripheral); E66.01 Morbid (severe) obesity due to excess calories; M45.9 Ankylosing spondylitis of unspecified sites in spine; Z86.718 Personal history of other venous thrombosis and embolism; Z68.44 Body mass index [BMI] 60.0-69.9, adult ==

== ENCOUNTER → 2020-05-31 | Outpatient (CLI) | payer OTHER | LOC: M.WC 04:33 | PROVIDERS: ATTEND Family Medicine | DX: L97.811 Non-pressure chronic ulcer of other part of right lower leg limited to breakdown of skin (principal); L97.821 Non-pressure chronic ulcer of other part of left lower leg limited to breakdown of skin; S80.11XD Contusion of right lower leg, subsequent encounter; I89.0 Lymphedema, not elsewhere classified; I87.2 Venous insufficiency (chronic) (peripheral); E66.01 Morbid (severe) obesity due to excess calories; M45.9 Ankylosing spondylitis of unspecified sites in spine; Z86.718 Personal history of other venous thrombosis and embolism; Z68.44 Body mass index [BMI] 60.0-69.9, adult; W19.XXXD Unspecified fall, subsequent encounter ==

== ENCOUNTER → 2020-06-05 | Outpatient (CLI) | payer OTHER | LOC: M.WC 04:03 | PROVIDERS: ATTEND Family Medicine | DX: L97.822 Non-pressure chronic ulcer of other part of left lower leg with fat layer exposed (principal); L97.811 Non-pressure chronic ulcer of other part of right lower leg limited to breakdown of skin; S80.11XD Contusion of right lower leg, subsequent encounter; I89.0 Lymphedema, not elsewhere classified; I87.2 Venous insufficiency (chronic) (peripheral); E66.01 Morbid (severe) obesity due to excess calories; M45.9 Ankylosing spondylitis of unspecified sites in spine; Z86.718 Personal history of other venous thrombosis and embolism; Z68.44 Body mass index [BMI] 60.0-69.9, adult; X58.XXXD Exposure to other specified factors, subsequent encounter ==

== ENCOUNTER → 2020-06-08 | Outpatient (CLI) | payer OTHER | LOC: M.WC 04:07 | PROVIDERS: ATTEND Family Medicine | DX: L97.821 Non-pressure chronic ulcer of other part of left lower leg limited to breakdown of skin (principal); I87.2 Venous insufficiency (chronic) (peripheral); I89.0 Lymphedema, not elsewhere classified; E66.01 Morbid (severe) obesity due to excess calories; M45.9 Ankylosing spondylitis of unspecified sites in spine; Z86.718 Personal history of other venous thrombosis and embolism; Z68.44 Body mass index [BMI] 60.0-69.9, adult ==

== ENCOUNTER → 2020-06-14 | Outpatient (CLI) | payer OTHER | LOC: M.WC 10:30 | PROVIDERS: ATTEND Family Medicine | DX: L97.822 Non-pressure chronic ulcer of other part of left lower leg with fat layer exposed (principal); I89.0 Lymphedema, not elsewhere classified; I87.2 Venous insufficiency (chronic) (peripheral); E66.01 Morbid (severe) obesity due to excess calories; M45.9 Ankylosing spondylitis of unspecified sites in spine; Z86.718 Personal history of other venous thrombosis and embolism; Z68.44 Body mass index [BMI] 60.0-69.9, adult ==

== ENCOUNTER → 2020-06-19 | Outpatient (CLI) | payer OTHER | LOC: M.WC 03:31 | PROVIDERS: ATTEND Family Medicine | DX: L97.822 Non-pressure chronic ulcer of other part of left lower leg with fat layer exposed (principal); I89.0 Lymphedema, not elsewhere classified; I87.2 Venous insufficiency (chronic) (peripheral); E66.01 Morbid (severe) obesity due to excess calories; M45.9 Ankylosing spondylitis of unspecified sites in spine; Z86.718 Personal history of other venous thrombosis and embolism; Z68.44 Body mass index [BMI] 60.0-69.9, adult ==

== ENCOUNTER → 2020-06-21 | Outpatient (CLI) | payer OTHER | LOC: M.WC 05:03 | PROVIDERS: ATTEND Family Medicine | DX: L97.822 Non-pressure chronic ulcer of other part of left lower leg with fat layer exposed (principal); L97.811 Non-pressure chronic ulcer of other part of right lower leg limited to breakdown of skin; S80.11XD Contusion of right lower leg, subsequent encounter; I89.0 Lymphedema, not elsewhere classified; I87.2 Venous insufficiency (chronic) (peripheral); E66.01 Morbid (severe) obesity due to excess calories; M45.9 Ankylosing spondylitis of unspecified sites in spine; Z86.718 Personal history of other venous thrombosis and embolism; Z68.44 Body mass index [BMI] 60.0-69.9, adult; X58.XXXD Exposure to other specified factors, subsequent encounter ==

== ENCOUNTER → 2020-07-12 | Outpatient (CLI) | payer OTHER ==
[2020-07-12 02:51] LABS: HEMATOCRIT 44.1 % (42.0-52.0); MCH 32.2 pg (26.0-34.0); MCHC 33.9 g/dL (28.0-37.0); MCV 94.9 fL (80.0-100.0); MPV 7.6 fl. (7.2-11.1); RBC 4.65 mil/uL (4.50-6.00); RDW-CV 14.1 % (10.5-14.5)
[2020-07-12 05:24] LABS: ALBUMIN 3.8 g/dL (3.4-5.0); ALKALINE PHOSPHATASE 129 U/L (46-116); ANION GAP 15 mmol/L (7-16); BUN 9 mg/dL (7-18); CALCIUM 9.3 mg/dL (8.5-10.1); CHLORIDE 107 mmol/L (98-107); CHOLESTEROL 172 mg/dL (<200); CO2 22 mmol/L (21-32); CREATININE 1.3 mg/dL (0.6-1.3); GLUCOSE 110 mg/dL (70-99); HDL CHOLESTEROL 40 mg/dL (>40); LDL CHOLESTEROL 109 mg/dL (<100); POTASSIUM 3.8 mmol/L (3.5-5.1); SGOT 24 U/L (15-37); SGPT 33 U/L (30-65); SODIUM 144 mmol/L (136-145); TC:HDL 4.3 Ratio (Not establshd); TOTAL PROTEIN 8.6 g/dL (6.4-8.2); TRIGLYCERIDE 115 mg/dL (<150); VLDL 23 mg/dL (<40)
[2020-07-12 05:32] LABS: SERUM ASSESSMENT CLEAR
[2020-07-13 02:08] LABS: GLYCOHEMOGLOBIN (HGB A1C) 5.5 % (4.8-5.6)
== END ==
LOC: M.LAB 02:13
PROVIDERS: ATTEND Internal Medicine
DX: I10 Essential (primary) hypertension (principal); R73.09 Other abnormal glucose

== ENCOUNTER → 2020-08-07 | Outpatient (CLI) | payer OTHER | LOC: M.WC 08:35 | PROVIDERS: ATTEND Emergency Medicine Undersea and Hyperbaric Medicine | DX: I87.312 Chronic venous hypertension (idiopathic) with ulcer of left lower extremity (principal); L97.822 Non-pressure chronic ulcer of other part of left lower leg with fat layer exposed; E66.01 Morbid (severe) obesity due to excess calories; I89.0 Lymphedema, not elsewhere classified; M45.9 Ankylosing spondylitis of unspecified sites in spine; Z86.718 Personal history of other venous thrombosis and embolism; Z68.44 Body mass index [BMI] 60.0-69.9, adult; Z90.49 Acquired absence of other specified parts of digestive tract ==

== ENCOUNTER → 2020-08-17 | Outpatient (CLI) | payer OTHER | LOC: M.WC 07:33 | PROVIDERS: ATTEND Family Medicine | DX: I87.312 Chronic venous hypertension (idiopathic) with ulcer of left lower extremity (principal); L97.822 Non-pressure chronic ulcer of other part of left lower leg with fat layer exposed; E66.01 Morbid (severe) obesity due to excess calories; I89.0 Lymphedema, not elsewhere classified; M45.9 Ankylosing spondylitis of unspecified sites in spine; Z86.718 Personal history of other venous thrombosis and embolism; Z68.44 Body mass index [BMI] 60.0-69.9, adult ==

== ENCOUNTER → 2020-08-30 | Outpatient (CLI) | payer OTHER | LOC: M.WC 08:00 | PROVIDERS: ATTEND Family Medicine | DX: I87.312 Chronic venous hypertension (idiopathic) with ulcer of left lower extremity (principal); L97.822 Non-pressure chronic ulcer of other part of left lower leg with fat layer exposed; E66.01 Morbid (severe) obesity due to excess calories; I89.0 Lymphedema, not elsewhere classified; M45.9 Ankylosing spondylitis of unspecified sites in spine; Z86.718 Personal history of other venous thrombosis and embolism; Z68.44 Body mass index [BMI] 60.0-69.9, adult ==

== ENCOUNTER → 2020-09-06 | Outpatient (CLI) | payer OTHER | LOC: M.WC 10:56 | PROVIDERS: ATTEND Family Medicine | DX: I87.312 Chronic venous hypertension (idiopathic) with ulcer of left lower extremity (principal); L97.822 Non-pressure chronic ulcer of other part of left lower leg with fat layer exposed; E66.01 Morbid (severe) obesity due to excess calories; I89.0 Lymphedema, not elsewhere classified; M45.9 Ankylosing spondylitis of unspecified sites in spine; Z86.718 Personal history of other venous thrombosis and embolism; Z68.44 Body mass index [BMI] 60.0-69.9, adult ==

== ENCOUNTER → 2020-10-04 | Outpatient (CLI) | payer OTHER | LOC: M.WC 08:00 | PROVIDERS: ATTEND Family Medicine | DX: I87.312 Chronic venous hypertension (idiopathic) with ulcer of left lower extremity (principal); L97.822 Non-pressure chronic ulcer of other part of left lower leg with fat layer exposed; E66.01 Morbid (severe) obesity due to excess calories; I89.0 Lymphedema, not elsewhere classified; M45.9 Ankylosing spondylitis of unspecified sites in spine; Z86.718 Personal history of other venous thrombosis and embolism; Z68.44 Body mass index [BMI] 60.0-69.9, adult ==

== ENCOUNTER → 2020-10-08 | Outpatient (CLI) | payer OTHER | LOC: M.WC 14:00 | PROVIDERS: ATTEND Family Medicine | DX: I87.312 Chronic venous hypertension (idiopathic) with ulcer of left lower extremity (principal); L97.822 Non-pressure chronic ulcer of other part of left lower leg with fat layer exposed; E66.01 Morbid (severe) obesity due to excess calories; I89.0 Lymphedema, not elsewhere classified; M45.9 Ankylosing spondylitis of unspecified sites in spine; Z86.718 Personal history of other venous thrombosis and embolism; Z68.44 Body mass index [BMI] 60.0-69.9, adult ==

== ENCOUNTER 2020-10-12 01:31 | Inpatient (IN) | payer OTHER ==
[~2020-10-12] VITALS: Ht 188 cm; Wt 231.3 kg
[2020-10-12 01:37] VITALS: BP 143/107
[2020-10-12 02:13] LABS: ABSOLUTE LYMPHOCYTES 1.6 thou/uL (0.8-5.3); ABSOLUTE MONOCYTES 0.6 thou/uL (0.0-1.2); ABSOLUTE NEUTROPHILS 4.8 thou/uL (1.6-8.1); BASOPHILS 0.6 %; EOSINOPHILS 0.2 %; HEMATOCRIT 47.5 % (42.0-52.0); LYMPHOCYTES 22.7 %; MCH 31.7 pg (26.0-34.0); MCHC 33.7 g/dL (28.0-37.0); MCV 94.2 fL (80.0-100.0); MONOCYTES 8.6 %; MPV 7.9 fl. (7.2-11.1); NUCLEATED RBCS 0 /100WBC; PLATELET COUNT* 189 thou/uL (150-400); POLYS 67.9 %; RBC 5.04 mil/uL (4.50-6.00); RDW-CV 13.5 % (10.5-14.5)
[2020-10-12 02:19] LABS: INFLUENZA A ANTIGEN Negative (Negative); INFLUENZA B ANTIGEN Negative (Negative)
[2020-10-12 02:21] LABS: CALCIUM 8.1 mg/dL (8.5-10.1); CREATININE 1.3 mg/dL (0.6-1.3); POTASSIUM 3.7 mmol/L (3.5-5.1)
[2020-10-12 02:21] LABS: BE -3.1 mmol/L (-2 to +3); PCO2 29.6 mmHg (35.0-45.0); PO2 67.2 mmHg (75.0-100.0); pH 7.438 (7.340-7.450)
[2020-10-12 02:25] LABS: ALBUMIN 3.1 g/dL (3.4-5.0); MAGNESIUM 1.9 mg/dL (1.8-2.4); TOTAL BILIRUBIN 0.9 mg/dL (<0.1-1.0); TOTAL PROTEIN 8.3 g/dL (6.4-8.2)
[2020-10-12 03:20] VITALS: BP 144/82
[2020-10-12 04:00] VITALS: BP 138/74
[2020-10-12 08:10] VITALS: BP 143/93
[2020-10-12] MEDS ORDERED: CODEINE-GUAIFE120 ML PO (09:48)
[2020-10-12] MEDS ORDERED: DEXAMETHASONE 44 M1 PO (09:48)
[2020-10-12] MEDS ORDERED: TESSALON PERLE100 MG PO (09:48)
[2020-10-12 12:00] VITALS: BP 125/76
--- NOTE | 2020-10-12 13:00 | EKG ---
[place] [address] ELECTROCARDIOGRAM REPORT Name: SHUKRI SUE Room: [address] ADM IN ..#: [id number] Admission: 10/12/20 Attend Phys: Stan Perkins, Discharge: Date of : 67 Date of Service: 10/12/20 0152 Report #: [id number] THIS REPORT FOR: //name// [facility] ED Test Date: 2020-10-12 Test Time: 01:52:08 Pat Name: SHUKRI SUE Department: Room: [address] Gender: M Hypertrichologist: MD : [id number] Requested By: Meaghan Ernst Order Number: [id number] MD: Kalia Suarez Measurements Intervals Doucette Rate: 93 P: 5 OR: 151 QRS: 6 QRSD: 87 T: 33 QT: 347 QTc: 432 Interpretive Statements Sinus rhythm Low voltage, precordial leads Compared to ECG 11/04/2016 23:02:03 No significant changes Electronically Signed On 10-12-2020 12:59:50 CLINICAL EDUCATION COORDINATOR by Kalia Suarez [email or web address] <ELECTRONICALLY SIGNED> By: Kalia Suarez MD, FACC 10/12/20 1259 0152 0152 Kalia Suarez MD, [facility] /EPI
[2020-10-12 14:22] VITALS: BP 138/74
== END 2020-10-12 18:07 | disposition home or self-care (01) | DRG 177 ==
LOC: M.ERS 01:31 → M.TBA-ER 02:58 → M.ORTHSURG 02:58
PROVIDERS: Personal Emergency Response Attendant; ADMIT Internal Medicine; ATTEND Internal Medicine
DX: U07.1 COVID-19 (principal); J12.82 Pneumonia due to coronavirus disease 2019; J96.01 Acute respiratory failure with hypoxia; Z90.49 Acquired absence of other specified parts of digestive tract; Z86.718 Personal history of other venous thrombosis and embolism; Z79.899 Other long term (current) drug therapy

== ENCOUNTER → 2020-11-02 | Outpatient (CLI) | payer OTHER ==
[~2020-11-02] MED LIST changes: +CODEINE-GUAIFE120 ML PO; +DEXAMETHASONE 44 M1 PO; +TESSALON PERLE100 MG PO
== END ==
LOC: M.WC 07:59
PROVIDERS: ATTEND Family Medicine
DX: I87.312 Chronic venous hypertension (idiopathic) with ulcer of left lower extremity (principal); L97.822 Non-pressure chronic ulcer of other part of left lower leg with fat layer exposed; S12.200D Unspecified displaced fracture of third cervical vertebra, subsequent encounter for fracture with routine healing; I89.0 Lymphedema, not elsewhere classified; M45.9 Ankylosing spondylitis of unspecified sites in spine; E66.01 Morbid (severe) obesity due to excess calories; Z68.44 Body mass index [BMI] 60.0-69.9, adult; Z86.718 Personal history of other venous thrombosis and embolism; Z79.01 Long term (current) use of anticoagulants; W19.XXXD Unspecified fall, subsequent encounter

== ENCOUNTER → 2020-11-09 | Outpatient (CLI) | payer OTHER | LOC: M.WC 11-08 08:00 | PROVIDERS: ATTEND Family Medicine | DX: I87.312 Chronic venous hypertension (idiopathic) with ulcer of left lower extremity (principal); L97.822 Non-pressure chronic ulcer of other part of left lower leg with fat layer exposed; S12.200D Unspecified displaced fracture of third cervical vertebra, subsequent encounter for fracture with routine healing; M45.9 Ankylosing spondylitis of unspecified sites in spine; I89.0 Lymphedema, not elsewhere classified; E66.01 Morbid (severe) obesity due to excess calories; Z68.44 Body mass index [BMI] 60.0-69.9, adult; Z86.718 Personal history of other venous thrombosis and embolism; Z79.01 Long term (current) use of anticoagulants; X58.XXXD Exposure to other specified factors, subsequent encounter ==

== ENCOUNTER → 2020-11-16 | Outpatient (CLI) | payer OTHER | LOC: M.WC 10:25 | PROVIDERS: ATTEND Family Medicine | DX: I87.312 Chronic venous hypertension (idiopathic) with ulcer of left lower extremity (principal); L97.822 Non-pressure chronic ulcer of other part of left lower leg with fat layer exposed; I89.0 Lymphedema, not elsewhere classified; E66.01 Morbid (severe) obesity due to excess calories; M45.9 Ankylosing spondylitis of unspecified sites in spine; Z68.44 Body mass index [BMI] 60.0-69.9, adult; Z86.718 Personal history of other venous thrombosis and embolism; Z79.01 Long term (current) use of anticoagulants ==

== ENCOUNTER → 2020-11-29 | Outpatient (CLI) | payer OTHER | LOC: M.WC 10:58 | PROVIDERS: ATTEND Family Medicine | DX: I87.312 Chronic venous hypertension (idiopathic) with ulcer of left lower extremity (principal); L97.822 Non-pressure chronic ulcer of other part of left lower leg with fat layer exposed; S12.200D Unspecified displaced fracture of third cervical vertebra, subsequent encounter for fracture with routine healing; I89.0 Lymphedema, not elsewhere classified; M45.9 Ankylosing spondylitis of unspecified sites in spine; E66.01 Morbid (severe) obesity due to excess calories; Z86.73 Personal history of transient ischemic attack (TIA), and cerebral infarction without residual deficits; Z68.44 Body mass index [BMI] 60.0-69.9, adult; Z79.01 Long term (current) use of anticoagulants; Z79.899 Other long term (current) drug therapy; W19.XXXD Unspecified fall, subsequent encounter ==

== ENCOUNTER → 2020-12-06 | Outpatient (CLI) | payer OTHER | LOC: M.WC 07:43 | PROVIDERS: ATTEND Family Medicine | DX: I87.312 Chronic venous hypertension (idiopathic) with ulcer of left lower extremity (principal); L97.822 Non-pressure chronic ulcer of other part of left lower leg with fat layer exposed; S12.200D Unspecified displaced fracture of third cervical vertebra, subsequent encounter for fracture with routine healing; I89.0 Lymphedema, not elsewhere classified; M45.9 Ankylosing spondylitis of unspecified sites in spine; E66.01 Morbid (severe) obesity due to excess calories; Z86.73 Personal history of transient ischemic attack (TIA), and cerebral infarction without residual deficits; Z68.44 Body mass index [BMI] 60.0-69.9, adult; Z79.01 Long term (current) use of anticoagulants; Z79.899 Other long term (current) drug therapy; Z86.718 Personal history of other venous thrombosis and embolism; W19.XXXD Unspecified fall, subsequent encounter ==

== ENCOUNTER → 2020-12-11 | Outpatient (CLI) | payer OTHER | LOC: M.WC 14:00 | PROVIDERS: ATTEND Family Medicine | DX: I87.312 Chronic venous hypertension (idiopathic) with ulcer of left lower extremity (principal); L97.822 Non-pressure chronic ulcer of other part of left lower leg with fat layer exposed; I89.0 Lymphedema, not elsewhere classified; M45.9 Ankylosing spondylitis of unspecified sites in spine; E66.01 Morbid (severe) obesity due to excess calories; Z86.73 Personal history of transient ischemic attack (TIA), and cerebral infarction without residual deficits; Z68.44 Body mass index [BMI] 60.0-69.9, adult; Z79.01 Long term (current) use of anticoagulants; Z79.899 Other long term (current) drug therapy; Z86.718 Personal history of other venous thrombosis and embolism ==

== ENCOUNTER → 2020-12-17 | Outpatient (CLI) | payer OTHER | LOC: M.WC 07:39 | PROVIDERS: ATTEND Family Medicine | DX: I87.312 Chronic venous hypertension (idiopathic) with ulcer of left lower extremity (principal); L97.822 Non-pressure chronic ulcer of other part of left lower leg with fat layer exposed; S12.200D Unspecified displaced fracture of third cervical vertebra, subsequent encounter for fracture with routine healing; I89.0 Lymphedema, not elsewhere classified; M45.9 Ankylosing spondylitis of unspecified sites in spine; E66.01 Morbid (severe) obesity due to excess calories; Z86.73 Personal history of transient ischemic attack (TIA), and cerebral infarction without residual deficits; Z68.44 Body mass index [BMI] 60.0-69.9, adult; Z86.718 Personal history of other venous thrombosis and embolism; W19.XXXD Unspecified fall, subsequent encounter ==

== ENCOUNTER → 2020-12-20 | Outpatient (CLI) | payer OTHER | LOC: M.WC 07:48 | PROVIDERS: ATTEND Family Medicine | DX: I87.312 Chronic venous hypertension (idiopathic) with ulcer of left lower extremity (principal); L97.822 Non-pressure chronic ulcer of other part of left lower leg with fat layer exposed; I89.0 Lymphedema, not elsewhere classified; M45.9 Ankylosing spondylitis of unspecified sites in spine; E66.01 Morbid (severe) obesity due to excess calories; Z86.73 Personal history of transient ischemic attack (TIA), and cerebral infarction without residual deficits; Z68.44 Body mass index [BMI] 60.0-69.9, adult; Z79.01 Long term (current) use of anticoagulants; Z79.899 Other long term (current) drug therapy; Z86.718 Personal history of other venous thrombosis and embolism ==

== ENCOUNTER → 2020-12-27 | Outpatient (CLI) | payer OTHER | LOC: M.WC 07:44 | PROVIDERS: ATTEND Family Medicine | DX: I87.312 Chronic venous hypertension (idiopathic) with ulcer of left lower extremity (principal); L97.822 Non-pressure chronic ulcer of other part of left lower leg with fat layer exposed; I89.0 Lymphedema, not elsewhere classified; M45.9 Ankylosing spondylitis of unspecified sites in spine; E66.01 Morbid (severe) obesity due to excess calories; Z86.73 Personal history of transient ischemic attack (TIA), and cerebral infarction without residual deficits; Z68.44 Body mass index [BMI] 60.0-69.9, adult; Z86.718 Personal history of other venous thrombosis and embolism ==

== ENCOUNTER → 2020-12-31 | Outpatient (CLI) | payer OTHER | LOC: M.WC 14:00 | PROVIDERS: ATTEND Family Medicine | DX: I87.312 Chronic venous hypertension (idiopathic) with ulcer of left lower extremity (principal); L97.822 Non-pressure chronic ulcer of other part of left lower leg with fat layer exposed; I89.0 Lymphedema, not elsewhere classified; M45.9 Ankylosing spondylitis of unspecified sites in spine; E66.01 Morbid (severe) obesity due to excess calories; Z86.73 Personal history of transient ischemic attack (TIA), and cerebral infarction without residual deficits; Z68.44 Body mass index [BMI] 60.0-69.9, adult; Z86.718 Personal history of other venous thrombosis and embolism ==

== ENCOUNTER → 2021-01-03 | Outpatient (CLI) | payer OTHER | LOC: M.WC 07:59 | PROVIDERS: ATTEND Family Medicine | DX: I87.312 Chronic venous hypertension (idiopathic) with ulcer of left lower extremity (principal); L97.822 Non-pressure chronic ulcer of other part of left lower leg with fat layer exposed; I89.0 Lymphedema, not elsewhere classified; E66.01 Morbid (severe) obesity due to excess calories; M45.9 Ankylosing spondylitis of unspecified sites in spine; Z86.73 Personal history of transient ischemic attack (TIA), and cerebral infarction without residual deficits; Z68.44 Body mass index [BMI] 60.0-69.9, adult; Z86.718 Personal history of other venous thrombosis and embolism ==

== ENCOUNTER → 2021-01-08 | Outpatient (CLI) | payer OTHER | LOC: M.WC 07:59 | PROVIDERS: ATTEND Family Medicine | DX: I87.312 Chronic venous hypertension (idiopathic) with ulcer of left lower extremity (principal); L97.822 Non-pressure chronic ulcer of other part of left lower leg with fat layer exposed; I89.0 Lymphedema, not elsewhere classified; E66.01 Morbid (severe) obesity due to excess calories; M45.9 Ankylosing spondylitis of unspecified sites in spine; Z86.73 Personal history of transient ischemic attack (TIA), and cerebral infarction without residual deficits; Z68.44 Body mass index [BMI] 60.0-69.9, adult; Z86.718 Personal history of other venous thrombosis and embolism ==

== ENCOUNTER → 2021-01-10 | Outpatient (CLI) | payer OTHER | LOC: M.WC 10:53 | PROVIDERS: ATTEND Family Medicine | DX: I87.312 Chronic venous hypertension (idiopathic) with ulcer of left lower extremity (principal); L97.822 Non-pressure chronic ulcer of other part of left lower leg with fat layer exposed; I89.0 Lymphedema, not elsewhere classified; E66.01 Morbid (severe) obesity due to excess calories; M45.9 Ankylosing spondylitis of unspecified sites in spine; Z86.73 Personal history of transient ischemic attack (TIA), and cerebral infarction without residual deficits; Z68.44 Body mass index [BMI] 60.0-69.9, adult; Z86.718 Personal history of other venous thrombosis and embolism ==

== ENCOUNTER → 2021-01-15 | Outpatient (CLI) | payer OTHER | LOC: M.WC 07:56 | PROVIDERS: ATTEND Family Medicine | DX: I87.312 Chronic venous hypertension (idiopathic) with ulcer of left lower extremity (principal); L97.822 Non-pressure chronic ulcer of other part of left lower leg with fat layer exposed; I89.0 Lymphedema, not elsewhere classified; E66.01 Morbid (severe) obesity due to excess calories; M45.9 Ankylosing spondylitis of unspecified sites in spine; Z86.73 Personal history of transient ischemic attack (TIA), and cerebral infarction without residual deficits; Z68.44 Body mass index [BMI] 60.0-69.9, adult; Z86.718 Personal history of other venous thrombosis and embolism ==

== ENCOUNTER → 2021-01-17 | Outpatient (CLI) | payer OTHER | LOC: M.WC 07:52 | PROVIDERS: ATTEND Family Medicine | DX: I87.312 Chronic venous hypertension (idiopathic) with ulcer of left lower extremity (principal); L97.822 Non-pressure chronic ulcer of other part of left lower leg with fat layer exposed; I89.0 Lymphedema, not elsewhere classified; E66.01 Morbid (severe) obesity due to excess calories; M45.9 Ankylosing spondylitis of unspecified sites in spine; Z86.73 Personal history of transient ischemic attack (TIA), and cerebral infarction without residual deficits; Z68.44 Body mass index [BMI] 60.0-69.9, adult; Z86.718 Personal history of other venous thrombosis and embolism ==

== ENCOUNTER → 2021-01-22 | Outpatient (CLI) | payer OTHER | LOC: M.WC 13:49 | PROVIDERS: ATTEND Family Medicine | DX: I87.312 Chronic venous hypertension (idiopathic) with ulcer of left lower extremity (principal); L97.822 Non-pressure chronic ulcer of other part of left lower leg with fat layer exposed; I89.0 Lymphedema, not elsewhere classified; E66.01 Morbid (severe) obesity due to excess calories; M45.9 Ankylosing spondylitis of unspecified sites in spine; Z86.73 Personal history of transient ischemic attack (TIA), and cerebral infarction without residual deficits; Z68.44 Body mass index [BMI] 60.0-69.9, adult; Z86.718 Personal history of other venous thrombosis and embolism ==

== ENCOUNTER → 2021-01-25 | Outpatient (CLI) | payer OTHER | LOC: M.WC 07:40 | PROVIDERS: ATTEND Family Medicine | DX: I87.312 Chronic venous hypertension (idiopathic) with ulcer of left lower extremity (principal); L97.822 Non-pressure chronic ulcer of other part of left lower leg with fat layer exposed; L03.116 Cellulitis of left lower limb; I89.0 Lymphedema, not elsewhere classified; E66.01 Morbid (severe) obesity due to excess calories; M45.9 Ankylosing spondylitis of unspecified sites in spine; Z86.73 Personal history of transient ischemic attack (TIA), and cerebral infarction without residual deficits; Z68.44 Body mass index [BMI] 60.0-69.9, adult; Z86.718 Personal history of other venous thrombosis and embolism ==

== ENCOUNTER → 2021-01-29 | Outpatient (CLI) | payer OTHER | LOC: M.WC 14:00 | PROVIDERS: ATTEND Family Medicine | DX: I87.312 Chronic venous hypertension (idiopathic) with ulcer of left lower extremity (principal); L97.822 Non-pressure chronic ulcer of other part of left lower leg with fat layer exposed; L03.116 Cellulitis of left lower limb; I89.0 Lymphedema, not elsewhere classified; E66.01 Morbid (severe) obesity due to excess calories; M45.9 Ankylosing spondylitis of unspecified sites in spine; Z86.73 Personal history of transient ischemic attack (TIA), and cerebral infarction without residual deficits; Z68.44 Body mass index [BMI] 60.0-69.9, adult; Z86.718 Personal history of other venous thrombosis and embolism ==

== ENCOUNTER → 2021-02-01 | Outpatient (CLI) | payer OTHER | LOC: M.WC 08:00 | PROVIDERS: ATTEND Family Medicine | DX: I87.312 Chronic venous hypertension (idiopathic) with ulcer of left lower extremity (principal); L97.822 Non-pressure chronic ulcer of other part of left lower leg with fat layer exposed; L03.116 Cellulitis of left lower limb; I89.0 Lymphedema, not elsewhere classified; E66.01 Morbid (severe) obesity due to excess calories; M45.9 Ankylosing spondylitis of unspecified sites in spine; Z86.73 Personal history of transient ischemic attack (TIA), and cerebral infarction without residual deficits; Z68.44 Body mass index [BMI] 60.0-69.9, adult; Z86.718 Personal history of other venous thrombosis and embolism ==

== ENCOUNTER → 2021-02-05 | Outpatient (CLI) | payer OTHER | LOC: M.WC 07:59 | PROVIDERS: ATTEND Family Medicine | DX: I87.312 Chronic venous hypertension (idiopathic) with ulcer of left lower extremity (principal); L97.822 Non-pressure chronic ulcer of other part of left lower leg with fat layer exposed; L03.116 Cellulitis of left lower limb; I89.0 Lymphedema, not elsewhere classified; E66.01 Morbid (severe) obesity due to excess calories; M45.9 Ankylosing spondylitis of unspecified sites in spine; Z86.73 Personal history of transient ischemic attack (TIA), and cerebral infarction without residual deficits; Z68.44 Body mass index [BMI] 60.0-69.9, adult; Z86.718 Personal history of other venous thrombosis and embolism ==

== ENCOUNTER → 2021-02-08 | Outpatient (CLI) | payer OTHER | LOC: M.WC 11:00 | PROVIDERS: ATTEND Family Medicine | DX: I87.312 Chronic venous hypertension (idiopathic) with ulcer of left lower extremity (principal); L97.822 Non-pressure chronic ulcer of other part of left lower leg with fat layer exposed; S12.200D Unspecified displaced fracture of third cervical vertebra, subsequent encounter for fracture with routine healing; L03.116 Cellulitis of left lower limb; M45.9 Ankylosing spondylitis of unspecified sites in spine; I89.0 Lymphedema, not elsewhere classified; E66.01 Morbid (severe) obesity due to excess calories; Z68.44 Body mass index [BMI] 60.0-69.9, adult; Z86.718 Personal history of other venous thrombosis and embolism; Z79.01 Long term (current) use of anticoagulants; Z79.899 Other long term (current) drug therapy; W19.XXXD Unspecified fall, subsequent encounter ==

== ENCOUNTER → 2021-02-12 | Outpatient (CLI) | payer OTHER | LOC: M.WC 14:20 | PROVIDERS: ATTEND Family Medicine | DX: I87.312 Chronic venous hypertension (idiopathic) with ulcer of left lower extremity (principal); L97.822 Non-pressure chronic ulcer of other part of left lower leg with fat layer exposed; L03.116 Cellulitis of left lower limb; M45.9 Ankylosing spondylitis of unspecified sites in spine; I89.0 Lymphedema, not elsewhere classified; E66.01 Morbid (severe) obesity due to excess calories; Z68.44 Body mass index [BMI] 60.0-69.9, adult; Z86.718 Personal history of other venous thrombosis and embolism; Z79.01 Long term (current) use of anticoagulants; Z79.899 Other long term (current) drug therapy ==

== ENCOUNTER → 2021-02-15 | Outpatient (CLI) | payer OTHER | LOC: M.WC 11:00 | PROVIDERS: ATTEND Family Medicine | DX: I87.312 Chronic venous hypertension (idiopathic) with ulcer of left lower extremity (principal); L97.822 Non-pressure chronic ulcer of other part of left lower leg with fat layer exposed; S12.200D Unspecified displaced fracture of third cervical vertebra, subsequent encounter for fracture with routine healing; L03.116 Cellulitis of left lower limb; M45.9 Ankylosing spondylitis of unspecified sites in spine; I89.0 Lymphedema, not elsewhere classified; E66.01 Morbid (severe) obesity due to excess calories; Z86.718 Personal history of other venous thrombosis and embolism; Z68.44 Body mass index [BMI] 60.0-69.9, adult; Z79.01 Long term (current) use of anticoagulants; Z79.899 Other long term (current) drug therapy; X58.XXXD Exposure to other specified factors, subsequent encounter ==

== ENCOUNTER → 2021-02-19 | Outpatient (CLI) | payer OTHER | LOC: M.WC 14:12 | PROVIDERS: ATTEND Family Medicine | DX: I87.312 Chronic venous hypertension (idiopathic) with ulcer of left lower extremity (principal); L97.822 Non-pressure chronic ulcer of other part of left lower leg with fat layer exposed; L03.116 Cellulitis of left lower limb; M45.9 Ankylosing spondylitis of unspecified sites in spine; I89.0 Lymphedema, not elsewhere classified; E66.01 Morbid (severe) obesity due to excess calories; Z86.718 Personal history of other venous thrombosis and embolism; Z68.44 Body mass index [BMI] 60.0-69.9, adult; Z79.01 Long term (current) use of anticoagulants ==

== ENCOUNTER → 2021-02-22 | Outpatient (CLI) | payer OTHER | LOC: M.WC 10:16 | PROVIDERS: ATTEND Family Medicine | DX: I87.312 Chronic venous hypertension (idiopathic) with ulcer of left lower extremity (principal); L97.822 Non-pressure chronic ulcer of other part of left lower leg with fat layer exposed; S12.200D Unspecified displaced fracture of third cervical vertebra, subsequent encounter for fracture with routine healing; M45.9 Ankylosing spondylitis of unspecified sites in spine; I89.0 Lymphedema, not elsewhere classified; E66.01 Morbid (severe) obesity due to excess calories; Z68.44 Body mass index [BMI] 60.0-69.9, adult; Z86.718 Personal history of other venous thrombosis and embolism; Z79.01 Long term (current) use of anticoagulants; Z79.899 Other long term (current) drug therapy; W19.XXXD Unspecified fall, subsequent encounter ==

== ENCOUNTER → 2021-02-26 | Outpatient (CLI) | payer OTHER | LOC: M.WC 14:27 | PROVIDERS: ATTEND Family Medicine | DX: I87.312 Chronic venous hypertension (idiopathic) with ulcer of left lower extremity (principal); L97.822 Non-pressure chronic ulcer of other part of left lower leg with fat layer exposed; M45.9 Ankylosing spondylitis of unspecified sites in spine; I89.0 Lymphedema, not elsewhere classified; E66.01 Morbid (severe) obesity due to excess calories; Z68.44 Body mass index [BMI] 60.0-69.9, adult; Z86.718 Personal history of other venous thrombosis and embolism; Z79.01 Long term (current) use of anticoagulants ==

== ENCOUNTER → 2021-03-01 | Outpatient (CLI) | payer OTHER | LOC: M.WC 10:13 | PROVIDERS: ATTEND Family Medicine | DX: I87.312 Chronic venous hypertension (idiopathic) with ulcer of left lower extremity (principal); L97.822 Non-pressure chronic ulcer of other part of left lower leg with fat layer exposed; S12.200D Unspecified displaced fracture of third cervical vertebra, subsequent encounter for fracture with routine healing; I89.0 Lymphedema, not elsewhere classified; E66.01 Morbid (severe) obesity due to excess calories; M45.9 Ankylosing spondylitis of unspecified sites in spine; Z68.44 Body mass index [BMI] 60.0-69.9, adult; Z86.73 Personal history of transient ischemic attack (TIA), and cerebral infarction without residual deficits; Z79.01 Long term (current) use of anticoagulants; Z79.899 Other long term (current) drug therapy; W19.XXXD Unspecified fall, subsequent encounter ==

== ENCOUNTER → 2021-03-05 | Outpatient (CLI) | payer OTHER | LOC: M.WC 14:15 | PROVIDERS: ATTEND Family Medicine | DX: I87.312 Chronic venous hypertension (idiopathic) with ulcer of left lower extremity (principal); L97.822 Non-pressure chronic ulcer of other part of left lower leg with fat layer exposed; I89.0 Lymphedema, not elsewhere classified; E66.01 Morbid (severe) obesity due to excess calories; M45.9 Ankylosing spondylitis of unspecified sites in spine; Z68.44 Body mass index [BMI] 60.0-69.9, adult; Z86.73 Personal history of transient ischemic attack (TIA), and cerebral infarction without residual deficits; Z79.01 Long term (current) use of anticoagulants; Z86.718 Personal history of other venous thrombosis and embolism ==

== ENCOUNTER → 2021-03-08 | Outpatient (CLI) | payer OTHER | LOC: M.WC 10:24 | PROVIDERS: ATTEND Family Medicine | DX: I87.312 Chronic venous hypertension (idiopathic) with ulcer of left lower extremity (principal); L97.822 Non-pressure chronic ulcer of other part of left lower leg with fat layer exposed; S12.200D Unspecified displaced fracture of third cervical vertebra, subsequent encounter for fracture with routine healing; I89.0 Lymphedema, not elsewhere classified; M45.9 Ankylosing spondylitis of unspecified sites in spine; E66.01 Morbid (severe) obesity due to excess calories; Z68.44 Body mass index [BMI] 60.0-69.9, adult; Z86.73 Personal history of transient ischemic attack (TIA), and cerebral infarction without residual deficits; Z79.01 Long term (current) use of anticoagulants; Z79.899 Other long term (current) drug therapy; W19.XXXD Unspecified fall, subsequent encounter ==

== ENCOUNTER → 2021-03-12 | Outpatient (CLI) | payer OTHER | LOC: M.WC 13:48 | PROVIDERS: ATTEND Family Medicine | DX: I87.312 Chronic venous hypertension (idiopathic) with ulcer of left lower extremity (principal); L97.822 Non-pressure chronic ulcer of other part of left lower leg with fat layer exposed; S12.200D Unspecified displaced fracture of third cervical vertebra, subsequent encounter for fracture with routine healing; I89.0 Lymphedema, not elsewhere classified; R60.9 Edema, unspecified; M45.9 Ankylosing spondylitis of unspecified sites in spine; E66.01 Morbid (severe) obesity due to excess calories; Z68.44 Body mass index [BMI] 60.0-69.9, adult; Z86.718 Personal history of other venous thrombosis and embolism; X58.XXXD Exposure to other specified factors, subsequent encounter ==

== ENCOUNTER → 2021-03-14 | Outpatient (CLI) | payer OTHER | LOC: M.WC 12:38 | PROVIDERS: ATTEND Family Medicine | DX: I87.312 Chronic venous hypertension (idiopathic) with ulcer of left lower extremity (principal); L97.822 Non-pressure chronic ulcer of other part of left lower leg with fat layer exposed; S12.200D Unspecified displaced fracture of third cervical vertebra, subsequent encounter for fracture with routine healing; I89.0 Lymphedema, not elsewhere classified; M45.9 Ankylosing spondylitis of unspecified sites in spine; E66.01 Morbid (severe) obesity due to excess calories; Z68.44 Body mass index [BMI] 60.0-69.9, adult; Z86.718 Personal history of other venous thrombosis and embolism; W19.XXXD Unspecified fall, subsequent encounter ==

== ENCOUNTER → 2021-03-19 | Outpatient (CLI) | payer OTHER | LOC: M.WC 14:19 | PROVIDERS: ATTEND Emergency Medicine Undersea and Hyperbaric Medicine | DX: I87.312 Chronic venous hypertension (idiopathic) with ulcer of left lower extremity (principal); L97.822 Non-pressure chronic ulcer of other part of left lower leg with fat layer exposed; S12.200D Unspecified displaced fracture of third cervical vertebra, subsequent encounter for fracture with routine healing; I89.0 Lymphedema, not elsewhere classified; M45.9 Ankylosing spondylitis of unspecified sites in spine; E66.01 Morbid (severe) obesity due to excess calories; Z68.44 Body mass index [BMI] 60.0-69.9, adult; Z86.73 Personal history of transient ischemic attack (TIA), and cerebral infarction without residual deficits; Z79.01 Long term (current) use of anticoagulants; Z86.718 Personal history of other venous thrombosis and embolism; W19.XXXD Unspecified fall, subsequent encounter ==

== ENCOUNTER → 2021-03-22 | Outpatient (CLI) | payer OTHER | LOC: M.WC 08:28 | PROVIDERS: ATTEND Family Medicine | DX: I87.312 Chronic venous hypertension (idiopathic) with ulcer of left lower extremity (principal); L97.822 Non-pressure chronic ulcer of other part of left lower leg with fat layer exposed; S12.200D Unspecified displaced fracture of third cervical vertebra, subsequent encounter for fracture with routine healing; I89.0 Lymphedema, not elsewhere classified; M45.9 Ankylosing spondylitis of unspecified sites in spine; E66.01 Morbid (severe) obesity due to excess calories; Z68.44 Body mass index [BMI] 60.0-69.9, adult; Z86.73 Personal history of transient ischemic attack (TIA), and cerebral infarction without residual deficits; Z79.01 Long term (current) use of anticoagulants; W19.XXXD Unspecified fall, subsequent encounter ==

== ENCOUNTER → 2021-03-29 | Outpatient (CLI) | payer OTHER | LOC: M.WC 10:53 | PROVIDERS: ATTEND Family Medicine | DX: I87.312 Chronic venous hypertension (idiopathic) with ulcer of left lower extremity (principal); L97.822 Non-pressure chronic ulcer of other part of left lower leg with fat layer exposed; I89.0 Lymphedema, not elsewhere classified; M45.9 Ankylosing spondylitis of unspecified sites in spine; E66.01 Morbid (severe) obesity due to excess calories; Z68.44 Body mass index [BMI] 60.0-69.9, adult; Z86.73 Personal history of transient ischemic attack (TIA), and cerebral infarction without residual deficits; Z86.718 Personal history of other venous thrombosis and embolism ==

== ENCOUNTER → 2021-04-02 | Outpatient (CLI) | payer OTHER | LOC: M.WC 13:39 | PROVIDERS: ATTEND Family Medicine | DX: I87.312 Chronic venous hypertension (idiopathic) with ulcer of left lower extremity (principal); L97.822 Non-pressure chronic ulcer of other part of left lower leg with fat layer exposed; I89.0 Lymphedema, not elsewhere classified; M45.9 Ankylosing spondylitis of unspecified sites in spine; E66.01 Morbid (severe) obesity due to excess calories; Z68.44 Body mass index [BMI] 60.0-69.9, adult; Z86.73 Personal history of transient ischemic attack (TIA), and cerebral infarction without residual deficits; Z86.718 Personal history of other venous thrombosis and embolism ==

== ENCOUNTER → 2021-04-05 | Outpatient (CLI) | payer OTHER | LOC: M.WC 10:57 | PROVIDERS: ATTEND Family Medicine | DX: I87.312 Chronic venous hypertension (idiopathic) with ulcer of left lower extremity (principal); L97.822 Non-pressure chronic ulcer of other part of left lower leg with fat layer exposed; S12.200D Unspecified displaced fracture of third cervical vertebra, subsequent encounter for fracture with routine healing; I89.0 Lymphedema, not elsewhere classified; M45.9 Ankylosing spondylitis of unspecified sites in spine; E66.01 Morbid (severe) obesity due to excess calories; Z86.718 Personal history of other venous thrombosis and embolism; Z79.01 Long term (current) use of anticoagulants; Z79.899 Other long term (current) drug therapy; W19.XXXD Unspecified fall, subsequent encounter ==

== ENCOUNTER → 2021-04-09 | Outpatient (CLI) | payer OTHER | LOC: M.WC 14:59 | PROVIDERS: ATTEND Family Medicine | DX: I87.312 Chronic venous hypertension (idiopathic) with ulcer of left lower extremity (principal); L97.822 Non-pressure chronic ulcer of other part of left lower leg with fat layer exposed; I89.0 Lymphedema, not elsewhere classified; M45.9 Ankylosing spondylitis of unspecified sites in spine; E66.01 Morbid (severe) obesity due to excess calories; Z86.718 Personal history of other venous thrombosis and embolism; Z68.44 Body mass index [BMI] 60.0-69.9, adult ==

== ENCOUNTER → 2021-04-12 | Outpatient (CLI) | payer OTHER | LOC: M.WC 11:00 | PROVIDERS: ATTEND Family Medicine | DX: I87.312 Chronic venous hypertension (idiopathic) with ulcer of left lower extremity (principal); L97.822 Non-pressure chronic ulcer of other part of left lower leg with fat layer exposed; S12.200D Unspecified displaced fracture of third cervical vertebra, subsequent encounter for fracture with routine healing; I89.0 Lymphedema, not elsewhere classified; M45.9 Ankylosing spondylitis of unspecified sites in spine; E66.01 Morbid (severe) obesity due to excess calories; Z68.44 Body mass index [BMI] 60.0-69.9, adult; Z86.718 Personal history of other venous thrombosis and embolism; Z79.01 Long term (current) use of anticoagulants; Z79.899 Other long term (current) drug therapy; W19.XXXD Unspecified fall, subsequent encounter ==

== ENCOUNTER → 2021-04-12 | Outpatient (CLI) | payer OTHER ==
[2021-04-12 12:46] LABS: ABSOLUTE EOSINOPHILS 0.2 thou/uL (0.0-0.7); ABSOLUTE LYMPHOCYTES 2.6 thou/uL (0.8-5.3); ABSOLUTE MONOCYTES 0.6 thou/uL (0.0-1.2); ABSOLUTE NEUTROPHILS 3.9 thou/uL (1.6-8.1); BASOPHILS 0.6 %; EOSINOPHILS 2.7 %; HEMATOCRIT 44.7 % (42.0-52.0); HEMOGLOBIN 15.4 gm/dL (14.0-18.0); LYMPHOCYTES 35.3 %; MCH 32.5 pg (26.0-34.0); MCHC 34.5 g/dL (28.0-37.0); MCV 94.3 fL (80.0-100.0); MONOCYTES 7.9 %; MPV 7.3 fl. (7.2-11.1); NUCLEATED RBCS 0 /100WBC; PLATELET COUNT* 256 thou/uL (150-400); POLYS 53.5 %; RBC 4.74 mil/uL (4.50-6.00); RDW-CV 13.8 % (10.5-14.5); WBC 7.4 thou/uL (4.0-11.0)
[2021-04-12 12:54] LABS: ALBUMIN 3.5 g/dL (3.4-5.0); ALKALINE PHOSPHATASE 121 U/L (46-116); ANION GAP 6 mmol/L (7-16); BUN 10 mg/dL (7-18); CALCIUM 8.4 mg/dL (8.5-10.1); CHLORIDE 105 mmol/L (98-107); CHOLESTEROL 160 mg/dL (<200); CO2 28 mmol/L (21-32); CREATININE 1.2 mg/dL (0.6-1.3); GLUCOSE 120 mg/dL (70-99); HDL CHOLESTEROL 38 mg/dL (>40); LDL CHOLESTEROL 99 mg/dL (<100); SGOT 23 U/L (15-37); SGPT 39 U/L (30-65); SODIUM 139 mmol/L (136-145); TC:HDL 4.2 Ratio (Not establshd); TOTAL BILIRUBIN 1.9 mg/dL (<0.1-1.0); TOTAL PROTEIN 8.1 g/dL (6.4-8.2); TRIGLYCERIDE 119 mg/dL (<150); VLDL 24 mg/dL (<40)
[2021-04-12 12:55] LABS: SERUM ASSESSMENT Clear
[2021-04-13 02:06] LABS: GLYCOHEMOGLOBIN (HGB A1C) 5.7 % (4.8-5.6)
== END ==
LOC: M.LAB 12:12
PROVIDERS: ATTEND Internal Medicine
DX: I10 Essential (primary) hypertension (principal); R73.09 Other abnormal glucose; D89.9 Disorder involving the immune mechanism, unspecified; Z20.822 Contact with and (suspected) exposure to COVID-19

== ENCOUNTER → 2021-04-16 | Outpatient (CLI) | payer OTHER | LOC: M.WC 15:00 | PROVIDERS: ATTEND Family Medicine | DX: I87.312 Chronic venous hypertension (idiopathic) with ulcer of left lower extremity (principal); L97.822 Non-pressure chronic ulcer of other part of left lower leg with fat layer exposed; I89.0 Lymphedema, not elsewhere classified; M45.9 Ankylosing spondylitis of unspecified sites in spine; E66.01 Morbid (severe) obesity due to excess calories; Z68.44 Body mass index [BMI] 60.0-69.9, adult; Z86.718 Personal history of other venous thrombosis and embolism; Z79.01 Long term (current) use of anticoagulants ==

== ENCOUNTER → 2021-04-19 | Outpatient (CLI) | payer OTHER | LOC: M.WC 10:22 | PROVIDERS: ATTEND Family Medicine | DX: I87.312 Chronic venous hypertension (idiopathic) with ulcer of left lower extremity (principal); L97.822 Non-pressure chronic ulcer of other part of left lower leg with fat layer exposed; M45.9 Ankylosing spondylitis of unspecified sites in spine; I89.0 Lymphedema, not elsewhere classified; E66.01 Morbid (severe) obesity due to excess calories; Z68.44 Body mass index [BMI] 60.0-69.9, adult; Z86.73 Personal history of transient ischemic attack (TIA), and cerebral infarction without residual deficits; Z79.01 Long term (current) use of anticoagulants; Z79.899 Other long term (current) drug therapy ==

== ENCOUNTER → 2021-04-23 | Outpatient (CLI) | payer OTHER | LOC: M.WC 13:58 | PROVIDERS: ATTEND Family Medicine | DX: I87.312 Chronic venous hypertension (idiopathic) with ulcer of left lower extremity (principal); L97.822 Non-pressure chronic ulcer of other part of left lower leg with fat layer exposed; M45.9 Ankylosing spondylitis of unspecified sites in spine; I89.0 Lymphedema, not elsewhere classified; E66.01 Morbid (severe) obesity due to excess calories; Z68.44 Body mass index [BMI] 60.0-69.9, adult; Z86.73 Personal history of transient ischemic attack (TIA), and cerebral infarction without residual deficits; Z79.01 Long term (current) use of anticoagulants; Z86.718 Personal history of other venous thrombosis and embolism ==

== ENCOUNTER → 2021-04-26 | Outpatient (CLI) | payer OTHER | LOC: M.WC 04-23 13:53 | PROVIDERS: ATTEND Family Medicine | DX: I87.312 Chronic venous hypertension (idiopathic) with ulcer of left lower extremity (principal); L97.822 Non-pressure chronic ulcer of other part of left lower leg with fat layer exposed; S12.200D Unspecified displaced fracture of third cervical vertebra, subsequent encounter for fracture with routine healing; M45.9 Ankylosing spondylitis of unspecified sites in spine; I89.0 Lymphedema, not elsewhere classified; E66.01 Morbid (severe) obesity due to excess calories; Z68.44 Body mass index [BMI] 60.0-69.9, adult; Z86.718 Personal history of other venous thrombosis and embolism; Z79.01 Long term (current) use of anticoagulants; Z79.899 Other long term (current) drug therapy; W19.XXXD Unspecified fall, subsequent encounter ==

== ENCOUNTER → 2021-04-30 | Outpatient (CLI) | payer OTHER | LOC: M.WC 14:00 | PROVIDERS: ATTEND Family Medicine | DX: I87.312 Chronic venous hypertension (idiopathic) with ulcer of left lower extremity (principal); L97.822 Non-pressure chronic ulcer of other part of left lower leg with fat layer exposed; M45.9 Ankylosing spondylitis of unspecified sites in spine; I89.0 Lymphedema, not elsewhere classified; E66.01 Morbid (severe) obesity due to excess calories; Z68.44 Body mass index [BMI] 60.0-69.9, adult; Z86.718 Personal history of other venous thrombosis and embolism ==

== ENCOUNTER → 2021-05-03 | Outpatient (CLI) | payer OTHER | LOC: M.WC 11:00 | PROVIDERS: ATTEND Family Medicine | DX: I87.312 Chronic venous hypertension (idiopathic) with ulcer of left lower extremity (principal); L97.822 Non-pressure chronic ulcer of other part of left lower leg with fat layer exposed; S12.200D Unspecified displaced fracture of third cervical vertebra, subsequent encounter for fracture with routine healing; I89.0 Lymphedema, not elsewhere classified; M45.9 Ankylosing spondylitis of unspecified sites in spine; E66.01 Morbid (severe) obesity due to excess calories; Z68.44 Body mass index [BMI] 60.0-69.9, adult; Z86.718 Personal history of other venous thrombosis and embolism; Z79.899 Other long term (current) drug therapy; Z79.01 Long term (current) use of anticoagulants; W19.XXXD Unspecified fall, subsequent encounter ==

== ENCOUNTER → 2021-05-07 | Outpatient (CLI) | payer OTHER | LOC: M.WC 14:22 | PROVIDERS: ATTEND Family Medicine | DX: I87.312 Chronic venous hypertension (idiopathic) with ulcer of left lower extremity (principal); L97.822 Non-pressure chronic ulcer of other part of left lower leg with fat layer exposed; M45.9 Ankylosing spondylitis of unspecified sites in spine; I89.0 Lymphedema, not elsewhere classified; E66.01 Morbid (severe) obesity due to excess calories; Z68.44 Body mass index [BMI] 60.0-69.9, adult; Z86.718 Personal history of other venous thrombosis and embolism; Z79.01 Long term (current) use of anticoagulants ==

== ENCOUNTER → 2021-05-10 | Outpatient (CLI) | payer OTHER | LOC: M.WC 10:54 | PROVIDERS: ATTEND Family Medicine | DX: I87.312 Chronic venous hypertension (idiopathic) with ulcer of left lower extremity (principal); L97.822 Non-pressure chronic ulcer of other part of left lower leg with fat layer exposed; I89.0 Lymphedema, not elsewhere classified; M45.9 Ankylosing spondylitis of unspecified sites in spine; E66.01 Morbid (severe) obesity due to excess calories; Z68.44 Body mass index [BMI] 60.0-69.9, adult; Z86.718 Personal history of other venous thrombosis and embolism ==

== ENCOUNTER → 2021-05-14 | Outpatient (CLI) | payer OTHER | LOC: M.WC 13:51 | PROVIDERS: ATTEND Family Medicine | DX: I87.312 Chronic venous hypertension (idiopathic) with ulcer of left lower extremity (principal); L97.822 Non-pressure chronic ulcer of other part of left lower leg with fat layer exposed; I89.0 Lymphedema, not elsewhere classified; M45.9 Ankylosing spondylitis of unspecified sites in spine; E66.01 Morbid (severe) obesity due to excess calories; Z68.44 Body mass index [BMI] 60.0-69.9, adult; Z86.718 Personal history of other venous thrombosis and embolism ==

== ENCOUNTER → 2021-05-17 | Outpatient (CLI) | payer OTHER | LOC: M.WC 07:37 | PROVIDERS: ATTEND Family Medicine | DX: I87.312 Chronic venous hypertension (idiopathic) with ulcer of left lower extremity (principal); L97.822 Non-pressure chronic ulcer of other part of left lower leg with fat layer exposed; S12.200D Unspecified displaced fracture of third cervical vertebra, subsequent encounter for fracture with routine healing; I89.0 Lymphedema, not elsewhere classified; M45.9 Ankylosing spondylitis of unspecified sites in spine; E66.01 Morbid (severe) obesity due to excess calories; Z68.44 Body mass index [BMI] 60.0-69.9, adult; Z86.718 Personal history of other venous thrombosis and embolism; Z79.01 Long term (current) use of anticoagulants; W19.XXXD Unspecified fall, subsequent encounter ==

== ENCOUNTER → 2021-05-21 | Outpatient (CLI) | payer OTHER | LOC: M.WC 13:53 | PROVIDERS: ATTEND Family Medicine | DX: I87.312 Chronic venous hypertension (idiopathic) with ulcer of left lower extremity (principal); L97.821 Non-pressure chronic ulcer of other part of left lower leg limited to breakdown of skin; M45.9 Ankylosing spondylitis of unspecified sites in spine; I89.0 Lymphedema, not elsewhere classified; E66.01 Morbid (severe) obesity due to excess calories; Z68.44 Body mass index [BMI] 60.0-69.9, adult; Z86.718 Personal history of other venous thrombosis and embolism ==

== ENCOUNTER → 2021-05-23 | Outpatient (CLI) | payer OTHER | LOC: M.WC 10:55 | PROVIDERS: ATTEND Family Medicine | DX: I87.312 Chronic venous hypertension (idiopathic) with ulcer of left lower extremity (principal); L97.822 Non-pressure chronic ulcer of other part of left lower leg with fat layer exposed; S12.200D Unspecified displaced fracture of third cervical vertebra, subsequent encounter for fracture with routine healing; I89.0 Lymphedema, not elsewhere classified; M45.9 Ankylosing spondylitis of unspecified sites in spine; E66.01 Morbid (severe) obesity due to excess calories; Z68.44 Body mass index [BMI] 60.0-69.9, adult; Z86.718 Personal history of other venous thrombosis and embolism; Z79.01 Long term (current) use of anticoagulants; W19.XXXD Unspecified fall, subsequent encounter ==

== ENCOUNTER → 2021-05-28 | Outpatient (CLI) | payer OTHER | LOC: M.WC 12:59 | PROVIDERS: ATTEND Family Medicine | DX: I87.312 Chronic venous hypertension (idiopathic) with ulcer of left lower extremity (principal); L97.822 Non-pressure chronic ulcer of other part of left lower leg with fat layer exposed; I89.0 Lymphedema, not elsewhere classified; M45.9 Ankylosing spondylitis of unspecified sites in spine; E66.01 Morbid (severe) obesity due to excess calories; Z68.44 Body mass index [BMI] 60.0-69.9, adult; Z86.718 Personal history of other venous thrombosis and embolism; Z79.01 Long term (current) use of anticoagulants ==

== ENCOUNTER → 2021-05-30 | Outpatient (CLI) | payer OTHER | LOC: M.WC 10:15 | PROVIDERS: ATTEND Family Medicine | DX: I87.312 Chronic venous hypertension (idiopathic) with ulcer of left lower extremity (principal); L97.822 Non-pressure chronic ulcer of other part of left lower leg with fat layer exposed; I89.0 Lymphedema, not elsewhere classified; M45.9 Ankylosing spondylitis of unspecified sites in spine; E66.01 Morbid (severe) obesity due to excess calories; Z68.44 Body mass index [BMI] 60.0-69.9, adult; Z86.718 Personal history of other venous thrombosis and embolism; Z79.01 Long term (current) use of anticoagulants ==

== ENCOUNTER → 2021-06-07 | Outpatient (CLI) | payer OTHER | LOC: M.WC 07:58 | PROVIDERS: ATTEND Family Medicine | DX: I87.312 Chronic venous hypertension (idiopathic) with ulcer of left lower extremity (principal); L97.822 Non-pressure chronic ulcer of other part of left lower leg with fat layer exposed; I89.0 Lymphedema, not elsewhere classified; M45.9 Ankylosing spondylitis of unspecified sites in spine; E66.01 Morbid (severe) obesity due to excess calories; Z68.44 Body mass index [BMI] 60.0-69.9, adult; Z86.718 Personal history of other venous thrombosis and embolism; Z79.01 Long term (current) use of anticoagulants ==

== ENCOUNTER → 2021-06-11 | Outpatient (CLI) | payer OTHER | LOC: M.WC 07:46 | PROVIDERS: ATTEND Family Medicine | DX: I87.312 Chronic venous hypertension (idiopathic) with ulcer of left lower extremity (principal); L97.822 Non-pressure chronic ulcer of other part of left lower leg with fat layer exposed; I89.0 Lymphedema, not elsewhere classified; M45.9 Ankylosing spondylitis of unspecified sites in spine; E66.01 Morbid (severe) obesity due to excess calories; Z68.44 Body mass index [BMI] 60.0-69.9, adult; Z86.718 Personal history of other venous thrombosis and embolism; Z79.01 Long term (current) use of anticoagulants ==

== ENCOUNTER → 2021-06-14 | Outpatient (CLI) | payer OTHER | LOC: M.WC 08:00 | PROVIDERS: ATTEND Family Medicine | DX: I87.312 Chronic venous hypertension (idiopathic) with ulcer of left lower extremity (principal); L97.822 Non-pressure chronic ulcer of other part of left lower leg with fat layer exposed; I89.0 Lymphedema, not elsewhere classified; M45.9 Ankylosing spondylitis of unspecified sites in spine; E66.01 Morbid (severe) obesity due to excess calories; Z68.44 Body mass index [BMI] 60.0-69.9, adult; Z86.718 Personal history of other venous thrombosis and embolism; Z79.01 Long term (current) use of anticoagulants ==

== ENCOUNTER → 2021-06-28 | Outpatient (CLI) | payer OTHER | LOC: M.WC 07:38 | PROVIDERS: ATTEND Family Medicine | DX: I87.312 Chronic venous hypertension (idiopathic) with ulcer of left lower extremity (principal); L97.822 Non-pressure chronic ulcer of other part of left lower leg with fat layer exposed; I89.0 Lymphedema, not elsewhere classified; M45.9 Ankylosing spondylitis of unspecified sites in spine; E66.01 Morbid (severe) obesity due to excess calories; Z68.44 Body mass index [BMI] 60.0-69.9, adult; Z86.718 Personal history of other venous thrombosis and embolism; Z79.01 Long term (current) use of anticoagulants ==

== ENCOUNTER → 2021-07-02 | Outpatient (CLI) | payer OTHER | LOC: M.WC 07-01 13:33 | PROVIDERS: ATTEND Family Medicine | DX: I87.312 Chronic venous hypertension (idiopathic) with ulcer of left lower extremity (principal); L97.822 Non-pressure chronic ulcer of other part of left lower leg with fat layer exposed; I89.0 Lymphedema, not elsewhere classified; M45.9 Ankylosing spondylitis of unspecified sites in spine; E66.01 Morbid (severe) obesity due to excess calories; Z68.44 Body mass index [BMI] 60.0-69.9, adult; Z86.718 Personal history of other venous thrombosis and embolism; Z79.01 Long term (current) use of anticoagulants ==

== ENCOUNTER → 2021-07-05 | Outpatient (CLI) | payer OTHER | LOC: M.WC 07:47 | PROVIDERS: ATTEND Family Medicine | DX: I87.312 Chronic venous hypertension (idiopathic) with ulcer of left lower extremity (principal); L97.822 Non-pressure chronic ulcer of other part of left lower leg with fat layer exposed; S12.200D Unspecified displaced fracture of third cervical vertebra, subsequent encounter for fracture with routine healing; I89.0 Lymphedema, not elsewhere classified; M45.9 Ankylosing spondylitis of unspecified sites in spine; E66.01 Morbid (severe) obesity due to excess calories; Z68.44 Body mass index [BMI] 60.0-69.9, adult; Z86.718 Personal history of other venous thrombosis and embolism; Z79.01 Long term (current) use of anticoagulants; Z79.899 Other long term (current) drug therapy; X58.XXXD Exposure to other specified factors, subsequent encounter ==

== ENCOUNTER → 2021-07-09 | Outpatient (CLI) | payer OTHER | LOC: M.WC 13:34 | PROVIDERS: ATTEND Family Medicine | DX: I87.312 Chronic venous hypertension (idiopathic) with ulcer of left lower extremity (principal); L97.822 Non-pressure chronic ulcer of other part of left lower leg with fat layer exposed; I89.0 Lymphedema, not elsewhere classified; M45.9 Ankylosing spondylitis of unspecified sites in spine; E66.01 Morbid (severe) obesity due to excess calories; Z68.44 Body mass index [BMI] 60.0-69.9, adult; Z86.718 Personal history of other venous thrombosis and embolism; Z79.01 Long term (current) use of anticoagulants; X58.XXXD Exposure to other specified factors, subsequent encounter ==

== ENCOUNTER → 2021-07-11 | Outpatient (CLI) | payer OTHER | LOC: M.WC 08:10 | PROVIDERS: ATTEND Family Medicine | DX: I87.312 Chronic venous hypertension (idiopathic) with ulcer of left lower extremity (principal); L97.822 Non-pressure chronic ulcer of other part of left lower leg with fat layer exposed; I89.0 Lymphedema, not elsewhere classified; M45.9 Ankylosing spondylitis of unspecified sites in spine; E66.01 Morbid (severe) obesity due to excess calories; Z68.44 Body mass index [BMI] 60.0-69.9, adult; Z86.718 Personal history of other venous thrombosis and embolism; Z79.01 Long term (current) use of anticoagulants ==

== ENCOUNTER → 2021-07-16 | Outpatient (CLI) | payer OTHER | LOC: M.WC 13:52 | PROVIDERS: ATTEND Family Medicine | DX: I87.312 Chronic venous hypertension (idiopathic) with ulcer of left lower extremity (principal); L97.822 Non-pressure chronic ulcer of other part of left lower leg with fat layer exposed; I89.0 Lymphedema, not elsewhere classified; M45.9 Ankylosing spondylitis of unspecified sites in spine; E66.01 Morbid (severe) obesity due to excess calories; Z68.44 Body mass index [BMI] 60.0-69.9, adult; Z86.718 Personal history of other venous thrombosis and embolism; Z79.01 Long term (current) use of anticoagulants ==

== ENCOUNTER → 2021-07-19 | Outpatient (CLI) | payer OTHER | LOC: M.WC 07:54 | PROVIDERS: ATTEND Family Medicine | DX: I87.312 Chronic venous hypertension (idiopathic) with ulcer of left lower extremity (principal); L97.822 Non-pressure chronic ulcer of other part of left lower leg with fat layer exposed; S12.290D Other displaced fracture of third cervical vertebra, subsequent encounter for fracture with routine healing; I89.0 Lymphedema, not elsewhere classified; M45.9 Ankylosing spondylitis of unspecified sites in spine; E66.01 Morbid (severe) obesity due to excess calories; Z68.44 Body mass index [BMI] 60.0-69.9, adult; Z86.718 Personal history of other venous thrombosis and embolism; Z79.01 Long term (current) use of anticoagulants; Z79.899 Other long term (current) drug therapy; X58.XXXD Exposure to other specified factors, subsequent encounter ==

== ENCOUNTER → 2021-07-23 | Outpatient (CLI) | payer OTHER | LOC: M.WC 08:44 | PROVIDERS: ATTEND Family Medicine | DX: I87.312 Chronic venous hypertension (idiopathic) with ulcer of left lower extremity (principal); L97.822 Non-pressure chronic ulcer of other part of left lower leg with fat layer exposed; S12.290D Other displaced fracture of third cervical vertebra, subsequent encounter for fracture with routine healing; I89.0 Lymphedema, not elsewhere classified; M45.9 Ankylosing spondylitis of unspecified sites in spine; E66.01 Morbid (severe) obesity due to excess calories; Z68.44 Body mass index [BMI] 60.0-69.9, adult; Z86.718 Personal history of other venous thrombosis and embolism; Z79.01 Long term (current) use of anticoagulants; X58.XXXD Exposure to other specified factors, subsequent encounter ==

== ENCOUNTER → 2021-08-01 | Outpatient (CLI) | payer OTHER | LOC: M.WC 07-31 14:29 | PROVIDERS: ATTEND Family Medicine | DX: I87.313 Chronic venous hypertension (idiopathic) with ulcer of bilateral lower extremity (principal); L97.822 Non-pressure chronic ulcer of other part of left lower leg with fat layer exposed; L97.812 Non-pressure chronic ulcer of other part of right lower leg with fat layer exposed; S12.200D Unspecified displaced fracture of third cervical vertebra, subsequent encounter for fracture with routine healing; M45.9 Ankylosing spondylitis of unspecified sites in spine; I89.0 Lymphedema, not elsewhere classified; E66.01 Morbid (severe) obesity due to excess calories; Z68.44 Body mass index [BMI] 60.0-69.9, adult; Z86.718 Personal history of other venous thrombosis and embolism; Z79.01 Long term (current) use of anticoagulants; Z79.899 Other long term (current) drug therapy; X58.XXXD Exposure to other specified factors, subsequent encounter ==

== ENCOUNTER → 2021-08-06 | Outpatient (CLI) | payer OTHER | LOC: M.WC 07:50 | PROVIDERS: ATTEND Family Medicine | DX: I87.313 Chronic venous hypertension (idiopathic) with ulcer of bilateral lower extremity (principal); L97.822 Non-pressure chronic ulcer of other part of left lower leg with fat layer exposed; L97.812 Non-pressure chronic ulcer of other part of right lower leg with fat layer exposed; S12.200D Unspecified displaced fracture of third cervical vertebra, subsequent encounter for fracture with routine healing; I89.0 Lymphedema, not elsewhere classified; M45.9 Ankylosing spondylitis of unspecified sites in spine; E66.01 Morbid (severe) obesity due to excess calories; Z68.44 Body mass index [BMI] 60.0-69.9, adult; Z86.718 Personal history of other venous thrombosis and embolism; X58.XXXD Exposure to other specified factors, subsequent encounter ==

== ENCOUNTER → 2021-08-08 | Outpatient (CLI) | payer OTHER | LOC: M.WC 10:50 | PROVIDERS: ATTEND Family Medicine | DX: I87.313 Chronic venous hypertension (idiopathic) with ulcer of bilateral lower extremity (principal); L97.822 Non-pressure chronic ulcer of other part of left lower leg with fat layer exposed; L97.812 Non-pressure chronic ulcer of other part of right lower leg with fat layer exposed; S12.200D Unspecified displaced fracture of third cervical vertebra, subsequent encounter for fracture with routine healing; I89.0 Lymphedema, not elsewhere classified; M45.9 Ankylosing spondylitis of unspecified sites in spine; E66.01 Morbid (severe) obesity due to excess calories; Z68.44 Body mass index [BMI] 60.0-69.9, adult; Z86.718 Personal history of other venous thrombosis and embolism; Z79.01 Long term (current) use of anticoagulants; Z79.899 Other long term (current) drug therapy; X58.XXXD Exposure to other specified factors, subsequent encounter ==

== ENCOUNTER → 2021-08-13 | Outpatient (CLI) | payer OTHER | LOC: M.WC 07:54 | PROVIDERS: ATTEND Family Medicine | DX: I87.313 Chronic venous hypertension (idiopathic) with ulcer of bilateral lower extremity (principal); L97.822 Non-pressure chronic ulcer of other part of left lower leg with fat layer exposed; L97.812 Non-pressure chronic ulcer of other part of right lower leg with fat layer exposed; M45.9 Ankylosing spondylitis of unspecified sites in spine; I89.0 Lymphedema, not elsewhere classified; E66.01 Morbid (severe) obesity due to excess calories; Z68.44 Body mass index [BMI] 60.0-69.9, adult; Z86.718 Personal history of other venous thrombosis and embolism; Z79.01 Long term (current) use of anticoagulants ==

== ENCOUNTER → 2021-08-15 | Outpatient (CLI) | payer OTHER | LOC: M.WC 07:28 | PROVIDERS: ATTEND Family Medicine | DX: I87.313 Chronic venous hypertension (idiopathic) with ulcer of bilateral lower extremity (principal); L97.822 Non-pressure chronic ulcer of other part of left lower leg with fat layer exposed; L97.812 Non-pressure chronic ulcer of other part of right lower leg with fat layer exposed; S12.200D Unspecified displaced fracture of third cervical vertebra, subsequent encounter for fracture with routine healing; I89.0 Lymphedema, not elsewhere classified; M45.9 Ankylosing spondylitis of unspecified sites in spine; E66.01 Morbid (severe) obesity due to excess calories; Z68.44 Body mass index [BMI] 60.0-69.9, adult; Z86.718 Personal history of other venous thrombosis and embolism; Z79.01 Long term (current) use of anticoagulants; X58.XXXD Exposure to other specified factors, subsequent encounter ==

== ENCOUNTER → 2021-08-21 | Outpatient (CLI) | payer OTHER | LOC: M.WC 08:00 | PROVIDERS: ATTEND Family Medicine | DX: I87.313 Chronic venous hypertension (idiopathic) with ulcer of bilateral lower extremity (principal); L97.822 Non-pressure chronic ulcer of other part of left lower leg with fat layer exposed; L97.812 Non-pressure chronic ulcer of other part of right lower leg with fat layer exposed; S12.200D Unspecified displaced fracture of third cervical vertebra, subsequent encounter for fracture with routine healing; I89.0 Lymphedema, not elsewhere classified; M45.9 Ankylosing spondylitis of unspecified sites in spine; E66.01 Morbid (severe) obesity due to excess calories; Z68.44 Body mass index [BMI] 60.0-69.9, adult; Z86.718 Personal history of other venous thrombosis and embolism; Z79.01 Long term (current) use of anticoagulants; X58.XXXD Exposure to other specified factors, subsequent encounter ==

== ENCOUNTER → 2021-08-26 | Outpatient (CLI) | payer OTHER | LOC: M.WC 08-21 07:33 | PROVIDERS: ATTEND Family Medicine | DX: I87.313 Chronic venous hypertension (idiopathic) with ulcer of bilateral lower extremity (principal); L97.822 Non-pressure chronic ulcer of other part of left lower leg with fat layer exposed; L97.812 Non-pressure chronic ulcer of other part of right lower leg with fat layer exposed; I89.0 Lymphedema, not elsewhere classified; M45.9 Ankylosing spondylitis of unspecified sites in spine; E66.01 Morbid (severe) obesity due to excess calories; Z68.44 Body mass index [BMI] 60.0-69.9, adult; Z86.718 Personal history of other venous thrombosis and embolism; Z79.01 Long term (current) use of anticoagulants ==

== ENCOUNTER → 2021-08-30 | Outpatient (CLI) | payer OTHER | LOC: M.WC 07:57 | PROVIDERS: ATTEND Family Medicine | DX: I87.313 Chronic venous hypertension (idiopathic) with ulcer of bilateral lower extremity (principal); L97.822 Non-pressure chronic ulcer of other part of left lower leg with fat layer exposed; L97.812 Non-pressure chronic ulcer of other part of right lower leg with fat layer exposed; I89.0 Lymphedema, not elsewhere classified; M45.9 Ankylosing spondylitis of unspecified sites in spine; E66.01 Morbid (severe) obesity due to excess calories; Z68.44 Body mass index [BMI] 60.0-69.9, adult; Z86.718 Personal history of other venous thrombosis and embolism; Z79.01 Long term (current) use of anticoagulants; X58.XXXD Exposure to other specified factors, subsequent encounter ==

== ENCOUNTER → 2021-09-03 | Outpatient (CLI) | payer OTHER | LOC: M.WC 07:31 | PROVIDERS: ATTEND Family Medicine | DX: I87.313 Chronic venous hypertension (idiopathic) with ulcer of bilateral lower extremity (principal); L97.822 Non-pressure chronic ulcer of other part of left lower leg with fat layer exposed; L97.812 Non-pressure chronic ulcer of other part of right lower leg with fat layer exposed; I89.0 Lymphedema, not elsewhere classified; M45.9 Ankylosing spondylitis of unspecified sites in spine; E66.01 Morbid (severe) obesity due to excess calories; Z68.44 Body mass index [BMI] 60.0-69.9, adult; Z86.718 Personal history of other venous thrombosis and embolism; Z79.01 Long term (current) use of anticoagulants; X58.XXXD Exposure to other specified factors, subsequent encounter ==

== ENCOUNTER → 2021-09-05 | Outpatient (CLI) | payer OTHER | LOC: M.WC 07:53 | PROVIDERS: ATTEND Family Medicine | DX: I87.313 Chronic venous hypertension (idiopathic) with ulcer of bilateral lower extremity (principal); L97.822 Non-pressure chronic ulcer of other part of left lower leg with fat layer exposed; L97.812 Non-pressure chronic ulcer of other part of right lower leg with fat layer exposed; S12.200D Unspecified displaced fracture of third cervical vertebra, subsequent encounter for fracture with routine healing; I89.0 Lymphedema, not elsewhere classified; M45.9 Ankylosing spondylitis of unspecified sites in spine; E66.01 Morbid (severe) obesity due to excess calories; Z68.44 Body mass index [BMI] 60.0-69.9, adult; Z79.01 Long term (current) use of anticoagulants; Z79.899 Other long term (current) drug therapy; W19.XXXD Unspecified fall, subsequent encounter ==

== ENCOUNTER → 2021-09-09 | Outpatient (CLI) | payer OTHER | LOC: M.WC 13:02 | PROVIDERS: ATTEND Family Medicine | DX: I87.313 Chronic venous hypertension (idiopathic) with ulcer of bilateral lower extremity (principal); L97.822 Non-pressure chronic ulcer of other part of left lower leg with fat layer exposed; L97.812 Non-pressure chronic ulcer of other part of right lower leg with fat layer exposed; I89.0 Lymphedema, not elsewhere classified; M45.9 Ankylosing spondylitis of unspecified sites in spine; E66.01 Morbid (severe) obesity due to excess calories; Z68.44 Body mass index [BMI] 60.0-69.9, adult; Z79.01 Long term (current) use of anticoagulants ==

== ENCOUNTER → 2021-09-13 | Outpatient (CLI) | payer OTHER ==
[2021-09-13 12:16] LABS: ABSOLUTE BASOPHILS 0.1 thou/uL (0.0-0.2); ABSOLUTE EOSINOPHILS 0.2 thou/uL (0.0-0.7); ABSOLUTE LYMPHOCYTES 1.9 thou/uL (0.8-5.3); ABSOLUTE MONOCYTES 0.6 thou/uL (0.0-1.2); ABSOLUTE NEUTROPHILS 5.3 thou/uL (1.6-8.1); BASOPHILS 0.9 %; EOSINOPHILS 2.5 %; HEMATOCRIT 45.4 % (42.0-52.0); HEMOGLOBIN 15.3 gm/dL (14.0-18.0); LYMPHOCYTES 23.5 %; MCH 31.9 pg (26.0-34.0); MCHC 33.7 g/dL (28.0-37.0); MCV 94.8 fL (80.0-100.0); MONOCYTES 7.6 %; MPV 7.7 fl. (7.2-11.1); NUCLEATED RBCS 0 /100WBC; PLATELET COUNT* 250 thou/uL (150-400); POLYS 65.5 %; RBC 4.79 mil/uL (4.50-6.00); RDW-CV 13.6 % (10.5-14.5)
[2021-09-13 12:30] LABS: ALBUMIN 3.1 g/dL (3.4-5.0); ALKALINE PHOSPHATASE 121 U/L (46-116); ANION GAP 9 mmol/L (7-16); BUN 13 mg/dL (7-18); CALCIUM 8.5 mg/dL (8.5-10.1); CHLORIDE 104 mmol/L (98-107); CHOLESTEROL 162 mg/dL (<200); CO2 26 mmol/L (21-32); CREATININE 1.2 mg/dL (0.6-1.3); GLUCOSE 114 mg/dL (70-99); HDL CHOLESTEROL 41 mg/dL (>40); LDL CHOLESTEROL 99 mg/dL (<100); POTASSIUM 3.9 mmol/L (3.5-5.1); SGOT 20 U/L (15-37); SGPT 32 U/L (30-65); SODIUM 139 mmol/L (136-145); TOTAL BILIRUBIN 1.4 mg/dL (<0.1-1.0); TOTAL PROTEIN 7.9 g/dL (6.4-8.2); TRIGLYCERIDE 114 mg/dL (<150); VLDL 23 mg/dL (<40)
[2021-09-13 12:35] LABS: SERUM ASSESSMENT CLEAR
[2021-09-14 05:07] LABS: GLYCOHEMOGLOBIN (HGB A1C) 5.8 % (4.8-5.6)
== END ==
LOC: M.WC 09-12 08:00 → M.LAB 08:39 → M.WC 10:00
PROVIDERS: ATTEND Family Medicine
DX: I87.313 Chronic venous hypertension (idiopathic) with ulcer of bilateral lower extremity (principal); L97.822 Non-pressure chronic ulcer of other part of left lower leg with fat layer exposed; L97.812 Non-pressure chronic ulcer of other part of right lower leg with fat layer exposed; S12.200D Unspecified displaced fracture of third cervical vertebra, subsequent encounter for fracture with routine healing; I89.0 Lymphedema, not elsewhere classified; E66.01 Morbid (severe) obesity due to excess calories; M45.9 Ankylosing spondylitis of unspecified sites in spine; Z68.44 Body mass index [BMI] 60.0-69.9, adult; Z79.899 Other long term (current) drug therapy; Z86.718 Personal history of other venous thrombosis and embolism; Z79.01 Long term (current) use of anticoagulants; W19.XXXD Unspecified fall, subsequent encounter

== ENCOUNTER → 2021-09-17 | Outpatient (CLI) | payer OTHER | LOC: M.WC 07:42 | PROVIDERS: ATTEND Family Medicine | DX: I87.313 Chronic venous hypertension (idiopathic) with ulcer of bilateral lower extremity (principal); L97.812 Non-pressure chronic ulcer of other part of right lower leg with fat layer exposed; L97.822 Non-pressure chronic ulcer of other part of left lower leg with fat layer exposed; L03.116 Cellulitis of left lower limb; S12.200D Unspecified displaced fracture of third cervical vertebra, subsequent encounter for fracture with routine healing; I89.0 Lymphedema, not elsewhere classified; E66.01 Morbid (severe) obesity due to excess calories; Z68.44 Body mass index [BMI] 60.0-69.9, adult; Z86.718 Personal history of other venous thrombosis and embolism; Z79.01 Long term (current) use of anticoagulants; Z79.899 Other long term (current) drug therapy; W19.XXXD Unspecified fall, subsequent encounter ==

== ENCOUNTER → 2021-09-19 | Outpatient (CLI) | payer OTHER ==
[~2021-09-19] MED LIST changes: +VITAMIN D3 PO; -VITAMIN D3400 UNIT PO; +ZYVOX600 MG PO
== END ==
LOC: M.WC 07:42
PROVIDERS: ATTEND Family Medicine
DX: I87.313 Chronic venous hypertension (idiopathic) with ulcer of bilateral lower extremity (principal); L97.822 Non-pressure chronic ulcer of other part of left lower leg with fat layer exposed; L97.812 Non-pressure chronic ulcer of other part of right lower leg with fat layer exposed; S12.200D Unspecified displaced fracture of third cervical vertebra, subsequent encounter for fracture with routine healing; L03.116 Cellulitis of left lower limb; I89.0 Lymphedema, not elsewhere classified; E66.01 Morbid (severe) obesity due to excess calories; Z68.44 Body mass index [BMI] 60.0-69.9, adult; Z86.718 Personal history of other venous thrombosis and embolism; Z79.01 Long term (current) use of anticoagulants; Z79.899 Other long term (current) drug therapy; W19.XXXD Unspecified fall, subsequent encounter

== ENCOUNTER 2021-09-21 17:09 | Inpatient (IN) | payer OTHER ==
[~2021-09-21] VITALS: Ht 188 cm; Wt 231.3 kg
[~2021-09-21 17:09] MED LIST changes: -ZYVOX600 MG PO
[2021-09-21 17:25] VITALS: BP 126/79
[2021-09-21] MEDS ORDERED: ZYVOX600 MG PO (17:28)
[2021-09-21 17:52] LABS: HEMATOCRIT 42.4 % (42.0-52.0); HEMOGLOBIN 14.4 gm/dL (14.0-18.0); MCH 31.9 pg (26.0-34.0); MCHC 33.8 g/dL (28.0-37.0); MCV 94.2 fL (80.0-100.0); MPV 7.6 fl. (7.2-11.1); NUCLEATED RBCS 0 /100WBC; PLATELET COUNT* 342 thou/uL (150-400); WBC 18.4 thou/uL (4.0-11.0)
[2021-09-21 18:01] LABS: CALCIUM 8.2 mg/dL (8.5-10.1); CREATININE 1.4 mg/dL (0.6-1.3); POTASSIUM 3.4 mmol/L (3.5-5.1)
[2021-09-21 18:06] LABS: ALBUMIN 2.4 g/dL (3.4-5.0); TOTAL BILIRUBIN 1.5 mg/dL (<0.1-1.0); TOTAL PROTEIN 8.1 g/dL (6.4-8.2)
[2021-09-21 19:23] LABS: ABSOLUTE LYMPHOCYTES 4.8 thou/uL (0.8-5.3); ABSOLUTE MONOCYTES 0.2 thou/uL (0.0-1.2); ABSOLUTE NEUTROPHILS 13.4 thou/uL (1.6-8.1); PLATELET ESTIMATE ADEQUATE
[2021-09-21 20:58] VITALS: BP 108/59
[2021-09-21 23:36] VITALS: BP 94/51
[2021-09-22] VITALS: BP 95/51
--- NOTE | 2021-09-22 00:05 | NUR ---
ASSUMED CARE OF PATIENT 09/21/21 AT APPROX 1930. PT A&OX4, VSS ON ROOM AIR. 09/22/21 AT APPROX 0000 REPORT GIVEN AND CARE TRANSFERED TO SHAMIKA BOBBY TELE.
[2021-09-22 00:20] VITALS: BP 110/60
--- NOTE | 2021-09-22 00:46 | NUR ---
PATIENT ARRIVED FROM ER PER HOSPITAL BED AT MIDNIGHT. GAVE TYLENOL FOR FEVER. PATIENT BROUGHT CPAP FROM HOME. DALLAS WRAP ON LOWER EXTREMITIES BILATERALLY. CALL LIGHT WITHIN REACH. EXTRA PILLOWS AND FAN PROVIDED PER REQUEST. SALINE LOCK ON LEFT FOREARM PATENT AND FLUSHES WITHOUT DIFFICULTY. A/O X 4. ROOM AIR.
--- NOTE | 2021-09-22 04:49 | NUR ---
RESTED ON/OFF. IV ANTIBIOTIC GIVEN. HOURLY ROUNDING IN PROGRESS.
[2021-09-22 08:30] VITALS: BP 128/66
[2021-09-22 15:57] VITALS: BP 115/62
--- NOTE | 2021-09-22 17:39 | NUR ---
Patient remains confused, but cooperative. A little more confused this evening. No further changes. Restful shift.
[2021-09-22 19:16] LABS: INFLUENZA A ANTIGEN Negative (Negative); INFLUENZA B ANTIGEN Negative (Negative)
[2021-09-22 20:00] VITALS: BP 137/76
--- NOTE | 2021-09-23 04:29 | NUR ---
ASSUMED PT CARE AT 1930. PT ALERT AND ORIENTED X4, POLITE AND COOPERATIVE WITH CARES. UP TO BATHROOM WITH MIN ASSIST OF ONE. SL TO RIGHT HAND. IV ANTIBIOTICS GIVEN. ROOM AIR. WORE HOME CPAP OVERNIGHT. PRN TYLENOL ONCE THIS SHIFT FOR ORAL TEMP OF 101.5. NOTIFIED, ORDERS FOR LABS RECEIVED. DALLAS WRAPS TO BLE INTACT. CALL LIGHT IN REACH. HOURLY ROUNDING IN PROGRESS, WILL CONTINUE TO MONITOR.
[2021-09-23 05:10] LABS: ABSOLUTE BASOPHILS 0.2 thou/uL (0.0-0.2); ABSOLUTE EOSINOPHILS 0.3 thou/uL (0.0-0.7); ABSOLUTE LYMPHOCYTES 1.8 thou/uL (0.8-5.3); ABSOLUTE MONOCYTES 0.7 thou/uL (0.0-1.2); ABSOLUTE NEUTROPHILS 10.7 thou/uL (1.6-8.1); BASOPHILS 1.4 %; EOSINOPHILS 2.4 %; HEMOGLOBIN 12.9 gm/dL (14.0-18.0); LYMPHOCYTES 12.9 %; MCH 31.7 pg (26.0-34.0); MCV 93.1 fL (80.0-100.0); MONOCYTES 5.1 %; MPV 7.2 fl. (7.2-11.1); NUCLEATED RBCS 0 /100WBC; PLATELET COUNT* 353 thou/uL (150-400); POLYS 78.2 %; RBC 4.08 mil/uL (4.50-6.00); RDW-CV 13.2 % (10.5-14.5); WBC 13.7 thou/uL (4.0-11.0)
[2021-09-23 05:25] LABS: CALCIUM 7.9 mg/dL (8.5-10.1); CREATININE 1.2 mg/dL (0.6-1.3); POTASSIUM 3.4 mmol/L (3.5-5.1)
[2021-09-23 07:50] VITALS: BP 141/77
--- NOTE | 2021-09-23 08:54 | NUR ---
CM ASSESSMENT: PT IS AN EMPLOYEE. PT CURRENTLY ON IV ABT'S. CM INFORMED PT THAT IF CM D/C PLANNING IS NEEDED CM WILL F/U TO DISCUSS THIS. CM WILL REMAIN AVAILABLE TO ASSIST AND FOLLOW NEEDED.
[2021-09-23 12:22] VITALS: BP 115/67
[2021-09-23 16:00] VITALS: BP 118/72
--- NOTE | 2021-09-23 16:21 | NUR ---
WOUND NURSE: PATIENT SEEN T ADDRESS BLE VLU ON DISTAL LEGS, WOUNDS MEASURED AND PHOTOGRAPHED, EACH PRESENT SMALL SHALLOW EROSIONS WITH RED, NONGRANULATING TISSUE AND SEROUS DRAINAGE PRESENT. PROXIMAL WOUND ON LATERAL ASPECT OF KNEE PRESENTS A LARGE RUPTURED BULLA, PAINFUL PER THE PATIENT WHO DESCRIBES IT FEELING LIKE A BURN. DARK RED, ECCHYMOTIC TISSUE NOTED ASSOCIATED WITH THIS WOUND. LARGE AMOUNT OF SEROUS DRAINAGE PRESENT ON BEDDING. WOUND CARE WAS PROVIDED PRESCRIBED TO ALL WOUNDS. PATIENT WAS PROVIDED ASSISTANCE WITH BATHING IN SHOWER PRIOR TO CHANGING DRESSINGS.
[2021-09-23 20:00] VITALS: BP 127/74
[2021-09-24] VITALS: BP 146/83
[2021-09-24 04:10] LABS: ABSOLUTE BASOPHILS 0.1 thou/uL (0.0-0.2); ABSOLUTE EOSINOPHILS 0.3 thou/uL (0.0-0.7); ABSOLUTE LYMPHOCYTES 1.7 thou/uL (0.8-5.3); ABSOLUTE MONOCYTES 0.7 thou/uL (0.0-1.2); ABSOLUTE NEUTROPHILS 9.9 thou/uL (1.6-8.1); BASOPHILS 0.7 %; EOSINOPHILS 2.3 %; HEMATOCRIT 38.3 % (42.0-52.0); HEMOGLOBIN 12.7 gm/dL (14.0-18.0); LYMPHOCYTES 13.2 %; MCH 31.5 pg (26.0-34.0); MCHC 33.1 g/dL (28.0-37.0); MCV 95.1 fL (80.0-100.0); MONOCYTES 5.8 %; MPV 7.5 fl. (7.2-11.1); NUCLEATED RBCS 0 /100WBC; PLATELET COUNT* 393 thou/uL (150-400); RBC 4.03 mil/uL (4.50-6.00); RDW-CV 13.1 % (10.5-14.5); WBC 12.7 thou/uL (4.0-11.0)
[2021-09-24 04:25] LABS: CALCIUM 8.2 mg/dL (8.5-10.1); CREATININE 1.1 mg/dL (0.6-1.3); POTASSIUM 3.3 mmol/L (3.5-5.1)
--- NOTE | 2021-09-24 04:27 | NUR ---
PATIENT SLEPT WELL DURING THIS SHIFT. PT USES CALL LIGHT APPROPRIATELY FOR ASSISTANCE TO BATHROOM. PT SALINE LOCKED WITH ANTIBIOTICS PER DR ORDER. BILATERAL LOWER EXTREMITIES WITH DSGS OVER WOUNDS AND WRAPPED. ALL ARE C/D/I. PT SAYS IN SMALL AMOUNT OF PAIN BUT IS TOLERABLE AND REFUSING PAIN MEDICAION. FREQUENTLY USED ITEMS AND CALL LIGHT WITHIN REACH. SIDERAILS UPX2. WILL CONTINUE TO MONITOR.
[2021-09-24 08:47] VITALS: BP 127/75
--- NOTE | 2021-09-24 13:51 | NUR ---
PLAN OF CARE: PLAN REMAINS FOR THE PT TO D/C HOME WITH SELF-CARE WHEN MEDICALLY STABLE. PT REMAIN ON IV ABT'S AT THIS TIME, BUT PHYSICIAN INFORMS THAT THE PT SHOULD TRANSITION TO ORAL ABT'S PRIOR TO D/C. CM WILL REMAIN AVAILABLE TO ASSIST AND FOLLOW NEEDED.
--- NOTE | 2021-09-24 14:12 | NUR ---
Nutrition: consult for wounds. Pt with BLE VLU per wound RN. Class III morbid obesity, no significant wt change for past several years. Pt wants Rodrigue BID which is drinks at home, also requested chicken salad sandwiches with all lunch and dinner meals. K 3.3, BUn 6, albumin 2.4. Meds reviewed. Pt does not appear at significant nutrition risk at this time.
--- NOTE | 2021-09-24 14:25 | NUR ---
DRESSING CHANGED TO PROXIMAL LEFT LOWER EXTREMITY WOUND PER ORDERS. DECREASED INFLAMATION COMPARED TO YESTERDAY, EVIDENCED BY LESS PAIN PER PATIENT. NEXT DRESSING CHANGE DUE TOMORROW.
[2021-09-24 16:10] VITALS: BP 113/58
[2021-09-24 20:00] VITALS: BP 129/86
--- NOTE | 2021-09-24 20:30 | NUR ---
Pt had drsgs to BLE today per wnd care RN and VERONIKA Santizo. Per wnd care RN, L leg improved from yesterday. VSS. Pt reports BM today, voiding without difficulty. Will continue to monitor.
[2021-09-25 00:41] VITALS: BP 127/76
[2021-09-25 05:07] LABS: ABSOLUTE BASOPHILS 0.1 thou/uL (0.0-0.2); ABSOLUTE EOSINOPHILS 0.4 thou/uL (0.0-0.7); ABSOLUTE LYMPHOCYTES 1.9 thou/uL (0.8-5.3); ABSOLUTE MONOCYTES 0.7 thou/uL (0.0-1.2); ABSOLUTE NEUTROPHILS 8.2 thou/uL (1.6-8.1); BASOPHILS 0.6 %; EOSINOPHILS 3.4 %; HEMATOCRIT 37.3 % (42.0-52.0); HEMOGLOBIN 12.4 gm/dL (14.0-18.0); LYMPHOCYTES 17.2 %; MCH 31.2 pg (26.0-34.0); MCHC 33.3 g/dL (28.0-37.0); MCV 93.7 fL (80.0-100.0); MONOCYTES 5.8 %; MPV 7.2 fl. (7.2-11.1); NUCLEATED RBCS 0 /100WBC; PLATELET COUNT* 409 thou/uL (150-400); RBC 3.98 mil/uL (4.50-6.00); WBC 11.2 thou/uL (4.0-11.0)
[2021-09-25 05:14] LABS: ALBUMIN 1.8 g/dL (3.4-5.0); CREATININE 0.9 mg/dL (0.6-1.3); POTASSIUM 3.4 mmol/L (3.5-5.1); TOTAL BILIRUBIN 0.8 mg/dL (<0.1-1.0); TOTAL PROTEIN 7.6 g/dL (6.4-8.2)
[2021-09-25 08:26] VITALS: BP 126/71
--- NOTE | 2021-09-25 13:33 | NUR ---
PLAN OF CARE: PHYSICIAN INFORMS OF PLAN TO RE-CONSULT SURGERY. PHYSICIAN ALSO INFORMS THAT THE PT MAY NEED IV ABT'S AT D/C, BUT FINAL DECISION IS PENDING AT THIS TIME. CM TO SEND REFERRLA TO [facility] TO CHECK PT'S CO-PAY AMT FOR HOME IV ABT INFUSION. CM WILL REMAIN AVAILABLE TO ASSIST AND FOLLOW NEEDED.
[2021-09-25 14:58] VITALS: BP 126/71
--- NOTE | 2021-09-25 15:58 | NUR ---
WOUND NURSE: PATIENT'S WOUND ON LEFT LATERAL KNEE WAS DEBRIDED BY PHYSICIAN TODAY, THEN DRESSING REAPPLIED BY NURSING.
[2021-09-25 16:19] VITALS: BP 135/75
--- NOTE | 2021-09-25 18:49 | NUR ---
PT UP WITH SBA. PT HAS IV IN RT WRIST . PT HAS LLE CELLULITIS PT HAD A WOUND DEBRIDEMENT THIS SHIFT PICTURES TAKEN AND IN CHART. PT POTASSIUM WAS 3.4 AND POTASSIUM WAS GIVEN X1. PT IS RESTING IN BED WITH CALL LIGHT IN REACH .
[2021-09-25 20:00] VITALS: BP 114/65
[2021-09-26] VITALS: BP 119/71
[2021-09-26 04:15] LABS: ABSOLUTE BASOPHILS 0.1 thou/uL (0.0-0.2); ABSOLUTE EOSINOPHILS 0.4 thou/uL (0.0-0.7); ABSOLUTE LYMPHOCYTES 1.9 thou/uL (0.8-5.3); ABSOLUTE MONOCYTES 0.7 thou/uL (0.0-1.2); ABSOLUTE NEUTROPHILS 7.2 thou/uL (1.6-8.1); BASOPHILS 1.3 %; EOSINOPHILS 3.5 %; HEMATOCRIT 37.5 % (42.0-52.0); HEMOGLOBIN 12.8 gm/dL (14.0-18.0); LYMPHOCYTES 18.1 %; MCH 31.9 pg (26.0-34.0); MCHC 34.1 g/dL (28.0-37.0); MCV 93.6 fL (80.0-100.0); MONOCYTES 7.1 %; MPV 7.2 fl. (7.2-11.1); NUCLEATED RBCS 0 /100WBC; PLATELET COUNT* 400 thou/uL (150-400); RBC 4.01 mil/uL (4.50-6.00); RDW-CV 13.3 % (10.5-14.5); WBC 10.2 thou/uL (4.0-11.0)
[2021-09-26 04:45] LABS: ALBUMIN 1.8 g/dL (3.4-5.0); CREATININE 1.1 mg/dL (0.6-1.3); PHOSPHORUS* 3.7 mg/dL (2.5-4.9); POTASSIUM 3.9 mmol/L (3.5-5.1); TOTAL BILIRUBIN 0.9 mg/dL (<0.1-1.0); TOTAL PROTEIN 7.7 g/dL (6.4-8.2)
--- NOTE | 2021-09-26 05:01 | NUR ---
ASSUMED CARE AT 1930. PATIENT RESTED IN BED ALL NIGHT. IVPB PER ORDERS, TOLERATING WELL. DRESSING TO BLE C/D/I. SALINE LOCK TO RT WRIST INTACT. VOIDS WITHOUT DIFF. NO C/O PAIN. HOURLY ROUNDS CONTINUE. BED ALARM ON. CALL LITE IN REACH.
[2021-09-26 08:05] VITALS: BP 115/77
--- NOTE | 2021-09-26 09:52 | NUR ---
PLAN OF CARE: PLAN FOR POSSIBLE IV ABT'S AT D/C. CM FAXED REFERRAL TO [facility], AND THEY INFORM OF PT'S CO-PAY FOR HOME IV ABT INFUSIONS OF: '$134.66/DAY UNTIL DEDUCTIBLE OF $1500 IS MET, AND PT WOUDL BE RESPONSIBLE FOR $26.93/DAY UNITL OOP OF $6800 IS MET ($110 CURRENTLY MET). PT WILL BE COVERED AT 100% WHEN DEDUCTIBLE AND OOP ARE MET, AND THIS BENEFIT INFO IS ONLY GOOD THROUGH THE END OF 2020. 2021 BENEFITS CAN NOT BE VARIFIED UNTIL SEP 28, 2021. CM TO F/U WITH PT TO PROVIDE THIS INFO WHEN DETERMINATION FOR IV ABT'S VS ORAL ABT'S ARE FINALIZED. CM WILL REMAIN AVAILABLE TO ASSIST AND FOLLOW NEEDED. [facility] PHONE: [phone] FAX: [phone]
[2021-09-26 11:21] VITALS: BP 115/57
[2021-09-26 12:00] VITALS: BP 115/57
[2021-09-26 16:00] VITALS: BP 139/80
--- NOTE | 2021-09-26 18:52 | NUR ---
PT DRESSINGS CHANGED THIS SHIFT WITH WOUND RN. 09-26-21
[2021-09-26 20:00] VITALS: BP 128/82
[2021-09-27 00:19] VITALS: BP 119/73
--- NOTE | 2021-09-27 04:39 | NUR ---
ASSUMED PT CARE AT 1930. PT ALERT AND ORIENTED X4, POLITE AND COOPERATIVE WITH CARES. PT SLEPT WELL OVERNIGHT, UP TO BATHROOM TO VOID WITH MIN ASSIST. DRESSINGS TO BLE C/D/I. IV ABX INFUSED WITHOUT DIFFICULTY TO LEFT HAND, NOW S/L. DENIES PAIN. CALL LIGHT IN REACH, BED ALARM ON FOR SAFETY. HOURLY ROUNDING IN PROGRESS, WILL CONTINUE TO MONITOR.
[2021-09-27 04:40] LABS: ABSOLUTE EOSINOPHILS 0.3 thou/uL (0.0-0.7); ABSOLUTE LYMPHOCYTES 1.6 thou/uL (0.8-5.3); ABSOLUTE MONOCYTES 0.7 thou/uL (0.0-1.2); ABSOLUTE NEUTROPHILS 6.5 thou/uL (1.6-8.1); BASOPHILS 0.2 %; EOSINOPHILS 3.7 %; HEMATOCRIT 37.1 % (42.0-52.0); HEMOGLOBIN 12.9 gm/dL (14.0-18.0); LYMPHOCYTES 17.7 %; MCH 32.3 pg (26.0-34.0); MCHC 34.7 g/dL (28.0-37.0); MONOCYTES 7.9 %; NUCLEATED RBCS 0 /100WBC; PLATELET COUNT* 435 thou/uL (150-400); POLYS 70.5 %; RBC 3.99 mil/uL (4.50-6.00); RDW-CV 13.4 % (10.5-14.5); WBC 9.3 thou/uL (4.0-11.0)
[2021-09-27 05:00] LABS: CALCIUM 8.4 mg/dL (8.5-10.1); CREATININE 1.1 mg/dL (0.6-1.3); PHOSPHORUS* 3.9 mg/dL (2.5-4.9); TOTAL BILIRUBIN 1.1 mg/dL (<0.1-1.0); TOTAL PROTEIN 8.1 g/dL (6.4-8.2)
[2021-09-27 08:00] VITALS: BP 136/68
[2021-09-27] MEDS ORDERED: METRONIDAZOLE500 M4 PO (09:42)
[2021-09-27] MEDS ORDERED: MUPIROCIN22 GM TOP (09:42)
[2021-09-27] MEDS ORDERED: DOXYCYCLINE 10100 MG PO (09:44)
[2021-09-27] MEDS ORDERED: AUGMENTIN 875-1 EACH PO (09:44)
[2021-09-27 11:52] VITALS: BP 136/68
--- NOTE | 2021-09-27 11:53 | NUR ---
PHYSICIAN INFORMS OF PLAN FOR THE PT TO D/C HOME TODAYU WITH SELF-CARE. NO CM D/C PLANNING NEEDS ANTICIPATED. CM WILL REMAIN AVAILABLE TO ASSIST AND FOLLOW NEEDED.
--- NOTE | 2021-09-27 14:06 | NUR ---
DISCHARGE ORDERS RECEIVED. DISCHARGE INSTRUCTIONS, CARE NOTES, E SCRIPTS AND FOLLOW UP APPTS GIVEN TO PT. PT COMMUNICATES UNDERSTANDING OF DISCHARGE TEACHING. IV AND SUPERVISOR ROD PLACING REMOVED. PT DISCHARGED WITH ALL BELONGINGS AND PAPERWORK VIA WHEELCHAIR WITH NURSING STAFF TO OWN PERSONAL VEHICLE. DISCHARGE PHOTO AND WOUND CARE COMPLETED TO LEFT KNEE. RIGHT AND LEFT LOWER EXTREMITY DRESSING REMAINED IN PLACE PER PT REQUEST DRESSING CHANGED YESTERDAY AND PT HAS FOLLOW UP ON SUNDAY 10/01.
== END 2021-09-27 14:18 | disposition home or self-care (01) | DRG 872 ==
LOC: M.ERS 17:09 → M.2W 18:18 → M.TBA-ER 18:18 → M.2W 22:36
PROVIDERS: Family Medicine; Internal Medicine; Nurse Practitioner Family; ADMIT Internal Medicine; ATTEND Internal Medicine
PROC: 5A09357 Assistance with Respiratory Ventilation, Less than 24 Consecutive Hours, Continuous Positive Airway Pressure (ICD-10-PCS; 2021-09-26)
PROC: 5A09357 Assistance with Respiratory Ventilation, Less than 24 Consecutive Hours, Continuous Positive Airway Pressure (ICD-10-PCS; principal; 2021-09-27)
DX: A41.9 Sepsis, unspecified organism (principal); L03.116 Cellulitis of left lower limb; N17.9 Acute kidney failure, unspecified; Z68.44 Body mass index [BMI] 60.0-69.9, adult; E66.01 Morbid (severe) obesity due to excess calories; D64.9 Anemia, unspecified

== ENCOUNTER → 2021-09-30 | Outpatient (CLI) | payer OTHER ==
[~2021-09-30] MED LIST changes: +AUGMENTIN 875-1 EACH PO; +DOXYCYCLINE 10100 MG PO; +METRONIDAZOLE500 M4 PO; +MUPIROCIN22 GM TOP; +ZYVOX600 MG PO
== END ==
LOC: M.WC 11:00
PROVIDERS: ATTEND Family Medicine
DX: I87.313 Chronic venous hypertension (idiopathic) with ulcer of bilateral lower extremity (principal); L97.822 Non-pressure chronic ulcer of other part of left lower leg with fat layer exposed; L97.812 Non-pressure chronic ulcer of other part of right lower leg with fat layer exposed; S12.200D Unspecified displaced fracture of third cervical vertebra, subsequent encounter for fracture with routine healing; L03.116 Cellulitis of left lower limb; I89.0 Lymphedema, not elsewhere classified; E66.01 Morbid (severe) obesity due to excess calories; M45.9 Ankylosing spondylitis of unspecified sites in spine; Z68.44 Body mass index [BMI] 60.0-69.9, adult; Z86.718 Personal history of other venous thrombosis and embolism; Z79.01 Long term (current) use of anticoagulants; W19.XXXD Unspecified fall, subsequent encounter

== ENCOUNTER → 2021-10-03 | Outpatient (CLI) | payer OTHER | LOC: M.WC 10:44 | PROVIDERS: ATTEND Family Medicine | DX: I87.312 Chronic venous hypertension (idiopathic) with ulcer of left lower extremity (principal); L97.822 Non-pressure chronic ulcer of other part of left lower leg with fat layer exposed; S12.200D Unspecified displaced fracture of third cervical vertebra, subsequent encounter for fracture with routine healing; L03.116 Cellulitis of left lower limb; I89.0 Lymphedema, not elsewhere classified; E66.01 Morbid (severe) obesity due to excess calories; Z68.44 Body mass index [BMI] 60.0-69.9, adult; Z86.718 Personal history of other venous thrombosis and embolism; Z79.01 Long term (current) use of anticoagulants; W19.XXXD Unspecified fall, subsequent encounter ==

== ENCOUNTER → 2021-10-07 | Outpatient (CLI) | payer OTHER | LOC: M.WC 12:34 | PROVIDERS: ATTEND Family Medicine | DX: I87.312 Chronic venous hypertension (idiopathic) with ulcer of left lower extremity (principal); L97.822 Non-pressure chronic ulcer of other part of left lower leg with fat layer exposed; L03.116 Cellulitis of left lower limb; M45.9 Ankylosing spondylitis of unspecified sites in spine; I89.0 Lymphedema, not elsewhere classified; E66.01 Morbid (severe) obesity due to excess calories; Z68.44 Body mass index [BMI] 60.0-69.9, adult; Z86.718 Personal history of other venous thrombosis and embolism ==

== ENCOUNTER → 2021-10-11 | Outpatient (CLI) | payer OTHER | LOC: M.WC 10-10 08:00 | PROVIDERS: ATTEND Family Medicine | DX: I87.312 Chronic venous hypertension (idiopathic) with ulcer of left lower extremity (principal); L97.822 Non-pressure chronic ulcer of other part of left lower leg with fat layer exposed; S12.200D Unspecified displaced fracture of third cervical vertebra, subsequent encounter for fracture with routine healing; L03.116 Cellulitis of left lower limb; I89.0 Lymphedema, not elsewhere classified; E66.01 Morbid (severe) obesity due to excess calories; Z68.44 Body mass index [BMI] 60.0-69.9, adult; Z86.718 Personal history of other venous thrombosis and embolism; Z79.01 Long term (current) use of anticoagulants; W19.XXXD Unspecified fall, subsequent encounter ==

== ENCOUNTER → 2021-10-15 | Outpatient (CLI) | payer OTHER | LOC: M.WC 07:59 | PROVIDERS: ATTEND Family Medicine | DX: I87.312 Chronic venous hypertension (idiopathic) with ulcer of left lower extremity (principal); L97.822 Non-pressure chronic ulcer of other part of left lower leg with fat layer exposed; S12.200D Unspecified displaced fracture of third cervical vertebra, subsequent encounter for fracture with routine healing; L03.116 Cellulitis of left lower limb; I89.0 Lymphedema, not elsewhere classified; E66.01 Morbid (severe) obesity due to excess calories; Z68.44 Body mass index [BMI] 60.0-69.9, adult; Z86.718 Personal history of other venous thrombosis and embolism; Z79.01 Long term (current) use of anticoagulants; W19.XXXD Unspecified fall, subsequent encounter ==

== ENCOUNTER → 2021-10-18 | Outpatient (CLI) | payer OTHER | LOC: M.WC 10-17 08:00 | PROVIDERS: ATTEND Family Medicine | DX: I87.312 Chronic venous hypertension (idiopathic) with ulcer of left lower extremity (principal); L97.822 Non-pressure chronic ulcer of other part of left lower leg with fat layer exposed; S12.200D Unspecified displaced fracture of third cervical vertebra, subsequent encounter for fracture with routine healing; I89.0 Lymphedema, not elsewhere classified; L03.116 Cellulitis of left lower limb; E66.01 Morbid (severe) obesity due to excess calories; M45.9 Ankylosing spondylitis of unspecified sites in spine; Z68.44 Body mass index [BMI] 60.0-69.9, adult; Z86.718 Personal history of other venous thrombosis and embolism; Z79.899 Other long term (current) drug therapy; W19.XXXD Unspecified fall, subsequent encounter ==

== ENCOUNTER → 2021-10-21 | Outpatient (CLI) | payer OTHER | LOC: M.WC 13:21 | PROVIDERS: ATTEND Family Medicine | DX: I87.312 Chronic venous hypertension (idiopathic) with ulcer of left lower extremity (principal); L97.822 Non-pressure chronic ulcer of other part of left lower leg with fat layer exposed; S12.200D Unspecified displaced fracture of third cervical vertebra, subsequent encounter for fracture with routine healing; I89.0 Lymphedema, not elsewhere classified; L03.116 Cellulitis of left lower limb; E66.01 Morbid (severe) obesity due to excess calories; M45.9 Ankylosing spondylitis of unspecified sites in spine; Z68.44 Body mass index [BMI] 60.0-69.9, adult; Z86.718 Personal history of other venous thrombosis and embolism; W19.XXXD Unspecified fall, subsequent encounter ==

== ENCOUNTER → 2021-10-24 | Outpatient (CLI) | payer OTHER | LOC: M.WC 07:43 | PROVIDERS: ATTEND Family Medicine | DX: I87.312 Chronic venous hypertension (idiopathic) with ulcer of left lower extremity (principal); L97.822 Non-pressure chronic ulcer of other part of left lower leg with fat layer exposed; S12.200D Unspecified displaced fracture of third cervical vertebra, subsequent encounter for fracture with routine healing; L03.116 Cellulitis of left lower limb; I89.0 Lymphedema, not elsewhere classified; M45.9 Ankylosing spondylitis of unspecified sites in spine; E66.01 Morbid (severe) obesity due to excess calories; Z68.44 Body mass index [BMI] 60.0-69.9, adult; Z86.718 Personal history of other venous thrombosis and embolism; W19.XXXD Unspecified fall, subsequent encounter ==

== ENCOUNTER → 2021-10-29 | Outpatient (CLI) | payer OTHER | LOC: M.WC 07:26 | PROVIDERS: ATTEND Family Medicine | DX: I87.312 Chronic venous hypertension (idiopathic) with ulcer of left lower extremity (principal); L97.822 Non-pressure chronic ulcer of other part of left lower leg with fat layer exposed; S12.200D Unspecified displaced fracture of third cervical vertebra, subsequent encounter for fracture with routine healing; L03.116 Cellulitis of left lower limb; I89.0 Lymphedema, not elsewhere classified; M45.9 Ankylosing spondylitis of unspecified sites in spine; E66.01 Morbid (severe) obesity due to excess calories; Z68.44 Body mass index [BMI] 60.0-69.9, adult; Z86.718 Personal history of other venous thrombosis and embolism; W19.XXXD Unspecified fall, subsequent encounter ==

== ENCOUNTER → 2021-11-05 | Outpatient (CLI) | payer OTHER | LOC: M.WC 07:36 | PROVIDERS: ATTEND Family Medicine | DX: I87.312 Chronic venous hypertension (idiopathic) with ulcer of left lower extremity (principal); L97.822 Non-pressure chronic ulcer of other part of left lower leg with fat layer exposed; L03.116 Cellulitis of left lower limb; I89.0 Lymphedema, not elsewhere classified; M45.9 Ankylosing spondylitis of unspecified sites in spine; E66.01 Morbid (severe) obesity due to excess calories; Z68.44 Body mass index [BMI] 60.0-69.9, adult; Z86.718 Personal history of other venous thrombosis and embolism ==

== ENCOUNTER → 2021-11-07 | Outpatient (CLI) | payer OTHER | LOC: M.WC 07:59 | PROVIDERS: ATTEND Family Medicine | DX: I87.312 Chronic venous hypertension (idiopathic) with ulcer of left lower extremity (principal); L97.822 Non-pressure chronic ulcer of other part of left lower leg with fat layer exposed; S12.200D Unspecified displaced fracture of third cervical vertebra, subsequent encounter for fracture with routine healing; L03.116 Cellulitis of left lower limb; I89.0 Lymphedema, not elsewhere classified; M45.9 Ankylosing spondylitis of unspecified sites in spine; E66.01 Morbid (severe) obesity due to excess calories; Z68.44 Body mass index [BMI] 60.0-69.9, adult; Z86.718 Personal history of other venous thrombosis and embolism; W19.XXXD Unspecified fall, subsequent encounter ==

== ENCOUNTER → 2021-11-12 | Outpatient (CLI) | payer OTHER | LOC: M.WC 13:37 | PROVIDERS: ATTEND Family Medicine | DX: I87.312 Chronic venous hypertension (idiopathic) with ulcer of left lower extremity (principal); L97.821 Non-pressure chronic ulcer of other part of left lower leg limited to breakdown of skin; L03.116 Cellulitis of left lower limb; I89.0 Lymphedema, not elsewhere classified; M45.9 Ankylosing spondylitis of unspecified sites in spine; E66.01 Morbid (severe) obesity due to excess calories; Z68.44 Body mass index [BMI] 60.0-69.9, adult; Z86.718 Personal history of other venous thrombosis and embolism ==

== ENCOUNTER → 2021-11-15 | Outpatient (CLI) | payer OTHER | LOC: M.WC 08:00 | PROVIDERS: ATTEND Internal Medicine | DX: I87.312 Chronic venous hypertension (idiopathic) with ulcer of left lower extremity (principal); L97.822 Non-pressure chronic ulcer of other part of left lower leg with fat layer exposed; S12.200D Unspecified displaced fracture of third cervical vertebra, subsequent encounter for fracture with routine healing; L03.116 Cellulitis of left lower limb; I89.0 Lymphedema, not elsewhere classified; M45.9 Ankylosing spondylitis of unspecified sites in spine; E66.01 Morbid (severe) obesity due to excess calories; Z68.44 Body mass index [BMI] 60.0-69.9, adult; Z86.718 Personal history of other venous thrombosis and embolism; Z79.01 Long term (current) use of anticoagulants; Z79.899 Other long term (current) drug therapy; W19.XXXD Unspecified fall, subsequent encounter ==

== ENCOUNTER → 2021-11-19 | Outpatient (CLI) | payer OTHER | LOC: M.WC 14:00 | PROVIDERS: ATTEND Family Medicine | DX: I87.312 Chronic venous hypertension (idiopathic) with ulcer of left lower extremity (principal); L97.822 Non-pressure chronic ulcer of other part of left lower leg with fat layer exposed; S12.200D Unspecified displaced fracture of third cervical vertebra, subsequent encounter for fracture with routine healing; L03.116 Cellulitis of left lower limb; I89.0 Lymphedema, not elsewhere classified; E66.01 Morbid (severe) obesity due to excess calories; M45.9 Ankylosing spondylitis of unspecified sites in spine; Z68.44 Body mass index [BMI] 60.0-69.9, adult; Z86.718 Personal history of other venous thrombosis and embolism; W19.XXXD Unspecified fall, subsequent encounter ==

== ENCOUNTER → 2021-11-22 | Outpatient (CLI) | payer OTHER | LOC: M.WC 07:48 | PROVIDERS: ATTEND Family Medicine | DX: I87.312 Chronic venous hypertension (idiopathic) with ulcer of left lower extremity (principal); L97.822 Non-pressure chronic ulcer of other part of left lower leg with fat layer exposed; S12.200D Unspecified displaced fracture of third cervical vertebra, subsequent encounter for fracture with routine healing; L03.116 Cellulitis of left lower limb; I89.0 Lymphedema, not elsewhere classified; M45.9 Ankylosing spondylitis of unspecified sites in spine; E66.01 Morbid (severe) obesity due to excess calories; Z68.44 Body mass index [BMI] 60.0-69.9, adult; Z86.718 Personal history of other venous thrombosis and embolism; Z79.01 Long term (current) use of anticoagulants; W19.XXXD Unspecified fall, subsequent encounter ==